=== PATIENT | male | born 1945 | race Caucasian/White ===

== ENCOUNTER → 2019-07-11 14:35 | Outpatient (CLI) | payer MEDICARE, SELFPAY ==
--- NOTE | ~2019-07-11 | XR_ITS ---
EXAMINATION: XR abdomen/kub 1V EXAM DATE: 07/11/2019 15:12 INDICATION: Bilateral kidney stones. TECHNIQUE: Frontal projection of the upper abdomen, frontal projection lower abdomen/pelvis for inter pretation. Comparison is made to prior examination from 05/27/2017. FINDINGS: There are cholecystectomy clips. Nonobstructive bowel gas pattern. There is colonic interp osition. Again there are multiple calcifications projecting over the pubic symphysis, probably bladde r stones. There is moderate lumbar levoscoliosis. IMPRESSION: Bladder stone. Reviewed, dictated and finalized at location A. IMPRESSION: Bladder stone.
== END ==
PROVIDERS: Visit Provider Urology
DX: N21.0 Calculus in bladder (principal)
CPT/HCPCS: 74018

== ENCOUNTER 2019-07-18 13:51 | Outpatient (CLI) | payer MEDICARE, SELFPAY ==
--- NOTE | ~2019-07-18 | CT_ITS ---
EXAMINATION: CT abdomen pelvis wo con DATE: 07/18/2019 14:33 INDICATION: Bladder stone and diverticulum TECHNIQUE: Computed tomography (CT) of the abdomen and pelvis was performed without intravenous contr ast. The dose-length product (DLP) was 1228.67 mGy-cm. Automated exposure control and iterative recon struction technique were employed. COMPARISON: 01/31/2015 FINDINGS: Minimal dependent atelectasis is present in the lung bases. The heart size is normal. The g allbladder is surgically absent. Punctate calcifications in an otherwise normal spleen likely represe nt healed granulomatous disease. There is nodularity of the liver surface. The pancreas and adrenal g lands are normal. Cysts of the kidneys measure up to 1.9 cm on the right. Nonobstructing stones of th e right kidney measure up to 4 mm. A nonobstructing left kidney stone measures 4 mm. There is a 10 mm hemorrhagic cyst of the left kidney. No pathologically enlarged abdominal or pelvic lymph nodes are identified. There is no free intraperitoneal gas or evidence of bowel obstruction. There are chronic venous collaterals in the mid and lower abdomen. There is a 3.1 cm stone in the urinary bladder. Also seen is a 1.1 cm stone which is adjacent to a prior diverticulum of the left bladder wall. Prostatic calcifications are again noted. There is severe lumbar spondylosis. IMPRESSION: 1. 3.1 cm bladder stone. 2. Bilateral nonobstructing nephrolithiasis. 3. Cirrhosis with portal hypertension. Reviewed, dictated and finalized at location A.
== END 2019-07-18 13:52 | disposition home or self-care (01) ==
LOC: ANHIMG 13:58
PROVIDERS: PCP Internal Medicine; Visit Provider Urology
DX: N21.0 Calculus in bladder (principal); N20.0 Calculus of kidney; K74.60 Unspecified cirrhosis of liver; K76.6 Portal hypertension
CPT/HCPCS: 74176

== ENCOUNTER 2019-07-27 00:51 | Day surgery (SDC) | payer MEDICARE, SELFPAY ==
[2019-07-26 13:34] VITALS: BMI 39.7
[2019-07-27] VITALS (12 sets, daily range): BP systolic 123–143; BP diastolic 70–99; PULSE 56–73; RESP 18–22; TEMP 36.1–36.7; O2SAT 90–97
[2019-07-27] MEDS: LACTATED RINGERS 1,000 ML 30 ML IV CONT ×2 (10:50→13:33)
--- NOTE | 2019-07-27 11:00 | P.PNAN_ITS ---
Anes - Initial Pre Proc Eval Procedure: Operation Date: 07/27/19 12:30 Proposed Procedures p Litholapaxy, Holmium Laser Lithotripsy Bladder Stone Extraction - Swapnil Guardado MD Date/Time: 07/27/19 11:00 Surgeon: Swapnil Guardado MD Pre Op Diagnosis: Bladder Stone Patient Data Age: 74 Gender: M Height: 5 ft 11 in Weight: 129.27 kg Allergies Allergy/AdvReac Type Severity Reaction Status Date / Time cephalexin Allergy Unknown Hives Verified 07/26/19 13:31 Home Medications Medication Instructions Recorded Confirmed Type albuterol sulfate 90 mcg/actuation 1 inhalation INHALATION Q4H PRN 04/12/19 07/26/19 History aerosol inhaler magnesium oxide 400 mg PO DAILY 04/12/19 07/26/19 History melatonin 10 mg tablet 10 mg PO HS 04/12/19 07/26/19 History trazodone 100 mg tablet 100 mg PO HS tablet 04/12/19 07/26/19 History furosemide 20 mg tablet 20 mg PO QAM 04/13/19 07/26/19 History potassium chloride 10 mEq 10 meq PO DAILY 04/13/19 07/26/19 History capsule,extended release rivastigmine 9.5 mg TRANSDERM DAILY 04/13/19 07/26/19 History gkptxbcerjd-vnnuyhbwz-dhzhycgj 1 inhalation INHALATION DAILY 07/26/19 07/26/19 History [Trelegy Ellipta] Patient hx anesthesia problems: none Family hx anesthesia problems: none PMFSH Family History Family History Father Asthma Social History Social History Smoking status: Never smoker Alcohol intake: never Anes - Eval Final PreProcedure Day of Procedure 07/27/19 11:00 Patient weight: morbidly obese Heart: tachycardia Lungs: decreased breath sounds Airway: Mallampati scale class II Neurological: other (alert) Last oral intake: >/= 8 hours ASA classification: IV Emergent: no Anesthetic plan: proceed Anesthesia type and monitoring: general LMA and standard monitoring Informed Consent: The patient's anesthetic plan and its attendant risks and benefits were discussed with the patient/family/POA. Questions were solicited an d answers provided to the satisfaction of the patient/family/POA.
--- NOTE | 2019-07-27 11:02 | WPDHPUPDATE1 ---
History and Physical Update Update Date/Time: 07/27/19 11:02 History and Physical has been reviewed, including an updated exam of the patient. There are NO changes in the patient's condition. Risks, benefits, and alternatives have been discussed and questions answered. Patient agrees to proceed with procedure.
[2019-07-27 11:19] LABS: INR 1.1; Prothrombin Time 13.8 Seconds (11.1-14.7)
[2019-07-27 11:20] LABS: Partial Thromboplastin Time 28.6 SECONDS (22.3-36.8)
[2019-07-27 11:22] LABS: Blood Urea Nitrogen 15 mg/dL (9-20); Calcium 8.3 mg/dL (8.4-10.2); Carbon Dioxide 31 mmol/L (22-30); Chloride 103 mmol/L (98-107); Estimated CRCL calculation 106 ml/min; Estimated Glomerular Filt Rate > 60; Glucose 114 mg/dL (75-110); Potassium 4.1 mmol/L (3.4-5.0); Sodium 137 mmol/L (137-145)
[2019-07-27] MEDS: levoFLOXacin 500 MG/D5W 100 ML 500 MG/100 ML BAG 100 MG IVPB (11:31)
--- NOTE | 2019-07-27 14:09 | PM.PROC ---
Procedure Note - Detailed Date of procedure: 07/27/19 Pre-op diagnosis: Bladder Stone Post-op diagnosis: same Procedure performed: 1. Cysto./laser lithotripsy, removal of large bladder stones Description of procedure: The patient is brought to the operative suite where he was prepped and draped in a routine sterile fashion while in the dorsal lithotomy position after the uneventful induction of a general anesthetic. A 21F rigid cystoscope was placed in his bladder. He has no urethral strictures And a prostate that is been previously resected without significant regrowth. He has a no median lobe enlargement with an estimated prostatic urethral length of approximately 1.5cm. He has 4 bladder calculi measuring approximately 3-6cm each . Using a 1000 micron holmium laser fiber laser these stones are fractured into smaller particles. The particles are evacuated through a 27 F resectoscope sheath using both the [employer] evacuator and by direct extraction with the loop electrode. There is some moderate hematuria determination that procedure and therefore I did place a 20F 3-way catheter. The patient was taken to the recovery room having tolerated the procedure well. Anesthesia: GLMA Surgeon: Swapnil Guardado MD Drains: Yes (20F Still catheter) Packing: No Pathology: yes Complications: No immediate complications Condition: stable Disposition: PACU
[2019-07-27] MEDS: ONDANSETRON INJ 4 MG/2 ML VIAL IV PUSH (15:59)
== END 2019-07-27 16:50 | disposition home or self-care (01) ==
PROVIDERS: Anesthesiology; PCP Internal Medicine; Visit Provider Urology
PROC: (CPT 52318; principal; 2019-07-27 12:30)
DX: N21.0 Calculus in bladder (principal); R31.9 Hematuria, unspecified; N41.1 Chronic prostatitis; E66.01 Morbid (severe) obesity due to excess calories; Z68.41 Body mass index [BMI] 40.0-44.9, adult
CPT/HCPCS: 52318; 36415; 80048; 82365; 85610; 85730; 88300; A9270; J1956; J2405; J2704; J3010; J7120

== ENCOUNTER 2024-09-18 03:12 | Inpatient (IN) | payer MEDICARE, SELFPAY ==
[2024-09-18] VITALS (62 sets, daily range): BP systolic 79–138; BP diastolic 42–89; PULSE 54–131; RESP 16–47; TEMP 34.8–38.5; O2SAT 90–100; BMI 38.3
--- NOTE | 2024-09-18 | ECHO_ITS ---
Patient Info Name: Wyatt Lyon Age: 79 years : 1945 Gender: Male Ht: 68 in Wt: 278 lbs BSA: 2.52 m2 HR: 59 bpm BP: 89 / 60 mmHg Heart Rhythm: Sinus Rhythm Technical Quality: Fair Exam Date: 09/18/2024 12:00 PM Patient Status: I Admit Date: 09/18/2024 Exam Type: CA echo dop color flow w con Complete two-dimensional, color flow and Doppler transthoracic echocardiogram is performed with contrast to opacify the left ventricle and to improve the deliniation of the left ventricle endocardial borders. Staff Referring Physician: Jamar Llanos MD [employer]: Leeann Whalen Attending Provider: Beba Orona Contrast/Agitated Saline Contrast/Ag. Saline: Definity Amount: 2.00 ml Administered By: Leeann Whalen Existing IV Access: Yes IV Access Condition: patent with no signs of infiltration Summary 1. Left ventricular chamber dimension is normal. 2. Left ventricular systolic function is normal, estimated at 60-65. 3. There is mildly increased left ventricular wall thickness. 4. The left ventricular diastolic function is grade I diastolic dysfunction. 5. Right ventricular systolic function is normal. 6. Right atrial chamber dimension is mildly enlarged. 7. No significant valvular disease. Left Ventricle Left ventricular chamber dimension is normal. Left ventricular systolic function is normal, estimated at 60-65. There is mildly increased left ventricular wall thickness. The left ventricular diastolic function is grade I diastolic dysfunction. Right Ventricle Right ventricular chamber dimension is normal. Right ventricular systolic function is normal. Left Atria Left atrial chamber dimension is normal. Right Atria Right atrial chamber dimension is mildly enlarged. Atrial Septum Intact interatrial septum visualized by color flow imaging. Aortic Valve The aortic valve is probable trileaflet. There is no aortic valve stenosis. There is no aortic valve regurgitation. Pulmonic Valve The pulmonic valve is not well visualized. There is no pulmonic regurgitation. Mitral Valve There is trace mitral valve regurgitation. Tricuspid Valve There is trace tricuspid valve regurgitation. Pericardium/Pleural The pericardium appears epicardial fat pad. There is no pericardial effusion. Aorta The aortic root size at the sinus of Valsalva is normal. Left Ventricular Outflow Tract Name Value Normal LVOT 2D LVOT Diameter 2.0 cm LVOT Doppler LVOT Peak Velocity 106 cm/s LVOT Peak Gradient 4 mmHg LVOT Mean Gradient 2 mmHg LVOT VTI 24 cm LVOT VTI/AV VTI Ratio 0.7 LVOT Stroke Volume 76 ml LVOT CO 4.3 l/min LVOT CI 1.7 l/min/m2 Pulmonic Valve Name Value Normal RVOT Doppler RVOT Peak Velocity 54 cm/s RVOT Peak Gradient 1 mmHg PV Doppler PV Peak Velocity 135 cm/s PV Peak Gradient 7 mmHg Mitral Valve Name Value Normal MV Diastolic Function MV E Peak Velocity 93 cm/s MV A Peak Velocity 76 cm/s MV E/A 1.2 MV Decel Time (PW) 194 ms MV Annular TDI MV E/e' (Septal) 10.4 MV E/e' (Lateral) 10.0 MV E/e' (Average) 10.2 Tricuspid Valve Name Value Normal TV Regurgitation Doppler TR Peak Velocity 222 cm/s TR Peak Gradient 20 mmHg Estimated PAP/RSVP RV Systolic Pressure 30 mmHg <36 TV Annular TDI TV Lateral Sarah s' Velocity 14.7 cm/s >=9.5 Aorta Name Value Normal Ascending Aorta Ao Root Diameter (MM) 3.5 cm Ao Root Diam Index (MM) 1.4 cm/m2 Aortic Valve Name Value Normal AV Doppler AV Peak Velocity 149 cm/s AV Peak Gradient 9 mmHg AV Mean Gradient 4 mmHg AV VTI 35 cm AV Area (Cont Eq VTI) 2.2 cm2 >=3.0 AV Area (Cont Eq Vicente) 2.3 cm2 AV DI (Vicente) 0.71 AV Regurgitation 2D LVOT Area 3.2 cm2 Ventricles Name Value Normal LV Dimensions 2D/MM IVS Diastolic Thickness (2D) 1.2 cm 0.6-1.0 LVID Diastole (2D) 5.6 cm 4.2-5.8 LVIW Diastolic Thickness (2D) 1.2 cm 0.6-1.0 LVID Systole (2D) 3.8 cm 2.5-4.0 LVOT Diameter 2.0 cm LV Mass (2D Cubed) 281.18 g 88.00-224.00 LV Mass Index (2D Cubed) 112 g/m2 49-115 Relative Wall Thickness (2D) 0.43 <=0.42 LV Fractional Shortening/Ejection Fraction 2D/MM LV Fractional Shortening (2D) 33 % 25-43 LV EF (2D Teichholz) 61 % LV Diastolic Volume (4C MOD) 139 ml LV EF (4C MOD) 66 % LV Diastolic Volume (2C MOD) 66 ml LV EF (2C MOD) 60 % LV Diastolic Volume (BP MOD) 107 ml 62-150 LV Diastolic Volume Index (BP MOD) 42 ml/m2 34-74 LV Systolic Volume (BP MOD) 38 ml 21-61 LV Systolic Volume Index (BP MOD) 15 ml/m2 11-31 LV EF (BP MOD) 65 % 52-72 LV Diastolic Length (4C) 10.5 cm LV Systolic Length (4C) 8.6 cm LV Stroke Volume (4C MOD) 92 ml Atria Name Value Normal LA Dimensions LA Dimension (MM) 6.9 cm 3.0-4.0 LA Volume (4C A-L) 85 ml LA Volume (BP A-L) 80 ml RA Dimensions RA Area (4C) 26.1 cm2 <=18.0 Report Signatures
--- NOTE | ~2024-09-18 | XR_ITS ---
Portable chest x-ray Comparison: 09/20/2024 Clinical History: Pulmonary congestion Findings: Bilateral pleural effusions and extensive bilateral airspace disease are similar to prior exam, most compatible with advanced pulmonary edema and CHF. Stable elevation left hemidiaphragm. Sta ble right-sided PICC line. Cardiomediastinal silhouette is stable. Bones and soft tissues are unrema rkable. Impression: Advanced CHF with bilateral pleural effusions and moderate to advanced pulmonary edema pattern. Corre late clinically for pneumonia. Stable right-sided PICC line. Reviewed, dictated and finalized at [facility]. Impression: Advanced CHF with bilateral pleural effusions and moderate to advanced pulmonar y edema pattern. Correlate clinically for pneumonia. Stable right-sided PICC line.
--- NOTE | ~2024-09-18 | XR_ITS ---
Portable chest x-ray Comparison: 03/28/2013 Clinical History: Altered mental status Findings: Moderate right pleural effusion present with right basilar airspace disease. There is elev ation of left hemidiaphragm. There multiple nodular opacities overlying the left upper lobe, which ar e possibly external to the lung. Cardiomediastinal silhouette is stable. Bones and soft tissues are unremarkable. Impression: Moderate right pleural effusion with right basilar atelectasis/edema versus possibly pneumonia. Numerous nodular opacities overlying the left upper lobe/left lung, which may be external to the lung itself. Consider chest CT to further evaluate. Stable elevation left hemidiaphragm. Reviewed, dictated and finalized at location . Impression: Moderate right pleural effusion with right basilar atelectasis/edema versus pos sibly pneumonia. Numerous nodular opacities overlying the left upper lobe/left lung, which may b e external to the lung itself. Consider chest CT to further evaluate. Stable elevation left hemidiaphragm.
--- NOTE | ~2024-09-18 | CT_ITS ---
Clinical Indication: Shortness of breath CT Scan of the Chest, Abdomen, and Pelvis with Contrast: Technique: Contiguous sections were acquired throughout the chest, abdomen, and pelvis after intraven ous administration of 100 cc of Omnipaque 350. Dose reduction technique was used on this scan by uti lizing automated exposure control and iterative reconstruction technique. The dose-length product (DL P) was 5379.50 mGy-cm. Findings: There is no evidence of any significant mediastinal, hilar or axillary lymphadenopathy. The mediastin al soft tissues appear normal. Evaluation for pulmonary embolism markedly limited due to timing of th e contrast bolus. No definite large central pulmonary embolus seen. No definite aortic aneurysm or di ssection. There is no evidence of pleural or pericardial effusion. Bibasilar consolidation is most compatible with bibasilar atelectatic change. Nodular contour of the liver is compatible cirrhosis. Suggestion of multifocal hypodense masses in th e liver, especially in the left hepatic lobe and caudate region. 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 C holecystectomy clips are present. The spleen, pancreas, adrenals and kidneys are within normal limits . No evidence of aortic aneurysm. Enlarged gastrohepatic lymph node measures 2.5 cm (axial image 72 of series 5).. There is suggestion of circumferential wall thickening at the ascending colon with relative distentio n of the cecum. There is probable soft tissue infiltration from the colonic wall thickening into the adjacent pericolonic fat (series 12 image 127 for example). Possible urinary bladder stone versus excreted contrast in the bladder. Still catheter in place. Pros richards gland is coarsely calcified. No ascites. Impression: Very limited evaluation for pulmonary embolus due to timing of the contrast bolus. No definite large central pulmonary embolus. Circumferential wall thickening of ascending colon with soft tissue infiltration into the adjacent pe ricolonic fat, highly suspicious for colonic adenocarcinoma. Consider colonoscopy for further assessm ent and tissue sampling. Cirrhotic liver. Multiple hypodense hepatic masses likely reflecting metastatic disease related to th e colonic adenocarcinoma, though multifocal hepatocellular carcinoma. Potential alternative considera tion. Enlarged gastrohepatic lymph node, suspicious for metastatic lymph node. Bibasilar pulmonary atelectasis. Reviewed, dictated and finalized at [facility]. Impression: Very limited evaluation for pulmonary embolus due to timing of the contrast rita us. No definite large central pulmonary embolus. Circumferential wall thickening of ascending colon with soft tissue infiltratio n into the adjacent pericolonic fat, highly suspicious for colonic adenocarcino ma. Consider colonoscopy for further assessment and tissue sampling. Cirrhotic liver. Multiple hypodense hepatic masses likely reflecting metastatic disease related to the colonic adenocarcinoma, though multifocal hepatocellula r carcinoma. Potential alternative consideration. Enlarged gastrohepatic lymph node, suspicious for metastatic lymph node. Bibasilar pulmonary atelectasis.
--- NOTE | ~2024-09-18 | NM_ITS ---
EXAMINATION: NM GI bleeding DATE: 09/18/2024 14:42 INDICATION: Colon mass. Anemia. TECHNIQUE: 24.9 mCi Tc 99m in vitro labeled red cells administered intravenously. Scintigraphic imag es of the abdomen were obtained through one hour. FINDINGS: No pattern of abnormal activity is seen in the abdomen or pelvis to suggest gastrointestina l hemorrhage. IMPRESSION: 1. No scintigraphic evidence for active gastrointestinal bleeding. Reviewed, dictated and finalized at location [facility].
--- NOTE | ~2024-09-18 | XR_ITS ---
Portable chest x-ray Comparison: 09/19/2024 Clinical History: Infiltrates Findings: Right-sided PICC line in place. Small to moderate right pleural effusion present. Probable small left pleural effusion. There is extensive pulmonary airspace disease, relatively sparing the r ight lung apex. Cardiomediastinal silhouette is stable. Bones and soft tissues are unremarkable. Impression: Sensitive bilateral pulmonary airspace disease with bilateral pleural effusions. Findings suggest adv anced CHF. Correlate clinically for pneumonia. Right-sided PICC line. Reviewed, dictated and finalized at location [facility]. Impression: Sensitive bilateral pulmonary airspace disease with bilateral pleural effusions . Findings suggest advanced CHF. Correlate clinically for pneumonia. Right-sided PICC line.
--- NOTE | ~2024-09-18 | CT_ITS ---
Non-contrast Head CT History: Altered mental status Technique: Axial non-contrast imaging of the brain was performed. Dose reduction technique was used on this scan by utilizing automated exposure control and iterative reconstruction technique. The dose -length product (DLP) was 756.67 mGy-cm. Findings: There is no evidence of intracranial hemorrhage, mass lesion, or acute infarct. Brain par enchyma appears normal. The ventricles and subarachnoid spaces are normal in size. The calvarium ap pears normal. The visualized paranasal sinuses and mastoid air cells are clear. IV contrast is on renzo candy from recent contrast-enhanced CT scan of the chest, abdomen, and pelvis. Impression: No significant abnormality seen. Reviewed, dictated and finalized at location . Impression: No significant abnormality seen.
--- NOTE | ~2024-09-18 | XR_ITS ---
Portable chest x-ray Comparison: 09/18/2024 Clinical History: Respiratory failure Findings: Probable small to moderate layering right pleural effusion with right basilar airspace con solidation. There is hazy left basilar and left perihilar airspace disease. Elevation left hemidiaphr agm. Cardiomediastinal silhouette is stable. Bones and soft tissues are unremarkable. Impression: Possible small to moderate layering right pleural effusion with right basilar atelectasis versus pneu monia. Hazy left basilar and left perihilar airspace disease could reflect pulmonary edema/atelectasis versu s pneumonia. Stable elevation left hemidiaphragm. Reviewed, dictated and finalized at location . Impression: Possible small to moderate layering right pleural effusion with right basilar a telectasis versus pneumonia. Hazy left basilar and left perihilar airspace disease could reflect pulmonary e kristyn/atelectasis versus pneumonia. Stable elevation left hemidiaphragm.
--- NOTE | 2024-09-18 03:21 | ECG_ITS ---
Test Date: 2024-09-18 03:31:13 Measurements Intervals [place] Rate: 132 P: 10 MT: 182 QRS: 43 QRSD: 96 T: 54 QT: 366 QTc: 544 Interpretive Statements SINUS TACHYCARDIA WITH ATRIAL AND VENTRICULAR PREMATURE COMPLEXES NONSPECIFIC ST & T-WAVE ABNORMALITY- DIFFUSE LEADS BASELINE ARTIFACT- I, II, III, AVR, AVL, AVF, V1, V3-V6 ABNORMAL ECG No previous ECG available for comparison Electronically Signed On 09-18-2024 07:09:49 CDT by Ty Elizondo D.O.
--- NOTE | 2024-09-18 03:34 | ED_ITS ---
HPI - General Adult General Chief complaint: Altered Mental Status Stated complaint: DIFFICULTY IN BREATHING Time Seen by Provider: 09/18/24 03:17 History of Present Illness HPI narrative: Patient is a 79-year-old gentleman presents emergency department with chief complaint of shortness of breath and elevated temperature. Patient has history of COPD and also uses 4 L of oxygen and BiPAP at night the patient had air conditioner malfunction and this evening was sleeping in a hot room patient became short of breath this evening and was altered mental status family reports the patient is full code Related Data Home Medications ?Medication ?Instructions ?Recorded ?Confirmed ?Last Taken ?Type albuterol sulfate 90 mcg/actuation 1 inhalation inhalation Q4H PRN 04/12/19 07/27/19 Unknown History aerosol inhaler Shortness Of Breath magnesium oxide 400 mg PO DAILY 04/12/19 07/27/19 Unknown History melatonin 10 mg tablet 10 mg PO HS 04/12/19 07/27/19 Unknown History trazodone 100 mg tablet 100 mg PO HS 04/12/19 07/27/19 Unknown History furosemide 20 mg tablet 20 mg PO QAM 04/13/19 07/27/19 Unknown History potassium chloride 10 mEq 10 meq PO DAILY 04/13/19 07/27/19 Unknown History capsule,extended release rivastigmine 9.5 mg/24 hour 9.5 mg transdermal DAILY 04/13/19 07/27/19 Unknown History transdermal patch fluticasone fur. 100 mcg-umeclid 1 inhalation inhalation DAILY 07/26/19 07/27/19 Unknown History 62.5 mcg-vilant 25 mcg inhalat.powder (Trelegy Ellipta) Allergies Allergy/AdvReac Type Severity Reaction Status Date / Time cephalexin Allergy Unknown Hives Verified 07/27/19 11:28 Review of Systems 2 Review of Systems: A 10 system review of systems was completed on the patient and is negative except for what is stated in the HPI. Nursing and ancillary documentation was reviewed. PMFSH Family History Family History Father Asthma Social History Social History Smoking status: Never smoker Alcohol intake: never Exam 2 Narrative: GENERAL: Ill-appearing, well-nourished, and in moderate acute distress. Hot to touch HEAD: Normocephalic, atraumatic. EYES: PERRLA and EOMI. ENT: Nares clear, no rhinorrhea or epistaxis. Mucous membranes moist. NECK: Supple. CHEST: Clear to auscultation. No respiratory distress. HEART: Regular rate and rhythm. No murmur heard. Normal peripheral pulses. ABDOMEN: Soft, nontender, nondistended, normal active bowel sounds. EXTREMITIES: Normal range of motion. No edema. SKIN: Warm, dry, no rash. NEURO: No focal deficits. Alert and slow to respond. PSYCH: Normal mood and affect. Course Vital Signs Vital signs: Vital Signs Temperature 38.5 C H 09/18/24 03:13 Pulse Rate 131 H 09/18/24 03:13 Respiratory Rate 47 H 09/18/24 03:13 Blood Pressure 129/59 L 09/18/24 03:13 Pulse Oximetry 97 09/18/24 03:13 Oxygen Delivery Room Air 09/18/24 03:13 Temperature 35.1 C L 09/18/24 06:53 Pulse Rate 85 09/18/24 06:53 Respiratory Rate 21 H 09/18/24 06:53 Blood Pressure 110/55 L 09/18/24 06:53 Pulse Oximetry 99 09/18/24 06:53 Oxygen Delivery BiPAP 09/18/24 06:18 Oxygen Flow Rate 15 09/18/24 03:37 Medical Decision Making Vital Signs Vital Signs: Vital Signs Temperature 38.5 C H 09/18/24 03:13 Pulse Rate 131 H 09/18/24 03:13 Respiratory Rate 47 H 09/18/24 03:13 Blood Pressure 129/59 L 09/18/24 03:13 Pulse Oximetry 97 09/18/24 03:13 Oxygen Delivery Room Air 09/18/24 03:13 Temperature 35.1 C L 09/18/24 06:53 Pulse Rate 85 09/18/24 06:53 Respiratory Rate 21 H 09/18/24 06:53 Blood Pressure 110/55 L 09/18/24 06:53 Pulse Oximetry 99 09/18/24 06:53 Oxygen Delivery BiPAP 09/18/24 06:18 Oxygen Flow Rate 15 09/18/24 03:37 Lab Data 09/18/24 05:23 09/18/24 03:42 Labs: Lab Results 09/18/24 09/18/24 09/18/24 Range/Units 03:42 03:53 05:23 WBC 7.4 (4.5-10.0) K/mm3 RBC 3.11 L (4.6-6.20) M/mm3 Hgb 6.6 L* 6.2 L* (14.0-18.0) g/dL Hct 23.4 L 22.5 L (42.0-52.0) % MCV 75.2 L (80-100) fl MCH 21.2 L (26-34) pg MCHC 28.2 L (32-36) g/dl RDW 21.2 H (11.5-14.5) % Plt Count 69 L (150-375) k/mm3 MPV TNP Immature Gran % (Auto) 2.0 H (0-0.5) % Neut % (Auto) 74.2 H (45.5-73.1) % Lymph % (Auto) 10.5 L (18.3-44.2) % [place] % (Auto) 10.7 H (2.6-8.5) % Eos % (Auto) 1.8 (0-4.4) % Baso % (Auto) 0.8 (0.2-1.2) % Lymph # (Auto) 0.78 L (0.9-3.2) K/mm3 [place] # (Auto) 0.8 H (0.1-0.6) K/mm3 Eos # (Auto) 0.1 (0-0.3) K/mm3 Baso # (Auto) 0.1 (0.0-0.1) K/mm3 Abs Immat Gran (auto) 0.15 H (0.00-0.031) K/mm3 Absolute Neuts (auto) 5.5 (1.3-6.7) K/mm3 Absolute Nucleated RBC 0.000 (0.0-0.012) K/mm3 Band Neutrophils % Not Reportable Nucleated RBC % 0.0 (0.0-0.2) % Smudge Cells Present Platelet Estimate Decreased (Adequate) Large Platelets Present % Immature Plt Fraction 9.5 (0.9-11.2) % Hypochromasia 2+ Poikilocytosis 2+ Anisocytosis 2+ Microcytosis 2+ (NORMAL) Ovalocytes 1+ Stomatocytes 1+ Schistocytes None seen PT Pending INR Pending APTT Pending Sodium 138 (137-145) mmol/L Potassium 3.1 L (3.4-5.0) mmol/L Chloride 101 (98-107) mmol/L Carbon Dioxide 29 (22-30) mmol/L Anion Gap 8 (4-12) mmol/L BUN 21 H (9-20) mg/dL Creatinine 1.33 H (0.7-1.3) mg/dL Estim Creat Clear Calc Not Reportable Estimated GFR 52 L (59 - ) Glucose 172 H (65-110) mg/dL Lactic Acid 3.5 H (0.7-2.0) mmol/L Calcium 8.3 L (8.4-10.2) mg/dL Magnesium 1.7 (1.6-2.3) mg/dL Total Bilirubin 1.2 (0.2-1.3) mg/dL AST 64 H (17-59) U/L ALT 26 (6-50) U/L Alkaline Phosphatase 156 H (38-126) U/L Total Creatine Kinase 88 (55-170) U/L Troponin I 0.068 H* (0.000-0.034) ng/mL NT-Pro-B Natriuret Pep 131 H (19.9-100) pg/mL Total Protein 6.5 (6.3-8.2) g/dL Albumin 3.1 L (3.5-5.1) g/dL Lipase 136 (23-300) U/L Procalcitonin 0.4 ng/mL Urine Color Yellow (Yellow) Urine Appearance Clear (Clear) Urine pH 6.5 (5.0-9.0) Ur Specific [place] 1.012 (1.001-1.035) Urine Protein Trace (Negative) mg/dL Urine Glucose (UA) Negative (Negative) mg/dL Urine Ketones Negative (Negative) mg/dL Ur Blood (Man) Negative (Negative) Urine Nitrate Negative (Negative) Urine Bilirubin Negative (Negative) Urine Urobilinogen 1.0 (<2.0) mg/dL Leukocyte Esterase Rfl 3+ H (Negative) RENATA/UL Urine RBC 3-5 H (0-2) /hpf Urine WBC 11-20 H (0-3) /hpf Ur Squamous Epith Cells Occasional (Few) /hpf Urine Bacteria None seen /hpf Urine Casts 3-5 Influenza A (RT-PCR) Negative (Negative) Influenza B (RT-PCR) Negative (Negative) RSV (RT-PCR) Negative (Negative) SARS-CoV-2 RNA (RT-PCR) Negative (Negative) Blood Type A Negative Antibody Screen Negative Crossmatch See Detail 09/18/24 Range/Units 06:24 WBC (4.5-10.0) K/mm3 RBC (4.6-6.20) M/mm3 Hgb (14.0-18.0) g/dL Hct (42.0-52.0) % MCV (80-100) fl MCH (26-34) pg MCHC (32-36) g/dl RDW (11.5-14.5) % Plt Count (150-375) k/mm3 MPV Immature Gran % (Auto) (0-0.5) % Neut % (Auto) (45.5-73.1) % Lymph % (Auto) (18.3-44.2) % [place] % (Auto) (2.6-8.5) % Eos % (Auto) (0-4.4) % Baso % (Auto) (0.2-1.2) % Lymph # (Auto) (0.9-3.2) K/mm3 [place] # (Auto) (0.1-0.6) K/mm3 Eos # (Auto) (0-0.3) K/mm3 Baso # (Auto) (0.0-0.1) K/mm3 Abs Immat Gran (auto) (0.00-0.031) K/mm3 Absolute Neuts (auto) (1.3-6.7) K/mm3 Absolute Nucleated RBC (0.0-0.012) K/mm3 Band Neutrophils % Nucleated RBC % (0.0-0.2) % Smudge Cells Platelet Estimate (Adequate) Large Platelets % Immature Plt Fraction (0.9-11.2) % Hypochromasia Poikilocytosis Anisocytosis Microcytosis (NORMAL) Ovalocytes Stomatocytes Schistocytes PT INR APTT Sodium (137-145) mmol/L Potassium (3.4-5.0) mmol/L Chloride (98-107) mmol/L Carbon Dioxide (22-30) mmol/L Anion Gap (4-12) mmol/L BUN (9-20) mg/dL Creatinine (0.7-1.3) mg/dL Estim Creat Clear Calc Estimated GFR (59 - ) Glucose (65-110) mg/dL Lactic Acid 1.7 (0.7-2.0) mmol/L Calcium (8.4-10.2) mg/dL Magnesium (1.6-2.3) mg/dL Total Bilirubin (0.2-1.3) mg/dL AST (17-59) U/L ALT (6-50) U/L Alkaline Phosphatase (38-126) U/L Total Creatine Kinase (55-170) U/L Troponin I 0.537 H* D (0.000-0.034) ng/mL NT-Pro-B Natriuret Pep (19.9-100) pg/mL Total Protein (6.3-8.2) g/dL Albumin (3.5-5.1) g/dL Lipase (23-300) U/L Procalcitonin ng/mL Urine Color (Yellow) Urine Appearance (Clear) Urine pH (5.0-9.0) Ur Specific [place] (1.001-1.035) Urine Protein (Negative) mg/dL Urine Glucose (UA) (Negative) mg/dL Urine Ketones (Negative) mg/dL Ur Blood (Man) (Negative) Urine Nitrate (Negative) Urine Bilirubin (Negative) Urine Urobilinogen (<2.0) mg/dL Leukocyte Esterase Rfl (Negative) RENATA/UL Urine RBC (0-2) /hpf Urine WBC (0-3) /hpf Ur Squamous Epith Cells (Few) /hpf Urine Bacteria /hpf Urine Casts Influenza A (RT-PCR) (Negative) Influenza B (RT-PCR) (Negative) RSV (RT-PCR) (Negative) SARS-CoV-2 RNA (RT-PCR) (Negative) Blood Type Antibody Screen Crossmatch ABG Data ABG results: 09/18/24 03:24 Puncture Site Right radial ABG pH 7.302 L ABG pCO2 56.1 H ABG pO2 142.4 H ABG PO2/FiO2 Ratio 1.42 ABG HCO3 27.1 H ABG O2 Saturation 98.5 ABG O2 Content 13.7 L ABG Base Excess 0.2 A-a Gradient 514.5 Oxyhemoglobin 97.2 Total Hemoglobin 9.8 L O2 Delivery Device Non-rebreather mask O2 Liters/Min 15.0 FiO2 100 Critical Care Time Critical Care Time Critical Care Time: Yes Total Critical Care Time: 35 Discharge Plan Discharge Clinical Impression: SOB (shortness of breath), Sepsis, Acute hypoxic respiratory failure, Anemia Patient Disposition: Still a Patient Condition: Stable Patient Language: Turkmen Prescriptions: No Action albuterol sulfate 90 mcg/actuation HFA aerosol inhaler 1 inhalation INHALATION Q4H PRN (Reason: Shortness Of Breath) magnesium oxide 400 mg magnesium tablet 400 mg PO DAILY melatonin 10 mg tablet 10 mg PO HS trazodone 100 mg tablet 100 mg PO HS rivastigmine 9.5 mg/24 hr patch 24 hour 9.5 mg TRANSDERM DAILY furosemide 20 mg tablet 20 mg PO QAM potassium chloride 10 mEq capsule, extended release 10 meq PO DAILY Trelegy Ellipta 100-62.5-25 mcg blister with device 1 inhalation INHALATION DAILY hydrocodone-acetaminophen 5-325 mg tablet 1 - 2 tablet PO Q6H PRN (Reason: pain) Qty: 20 0RF sulfamethoxazole-trimethoprim 800-160 mg tablet 1 tablet PO Q12H Qty: 10 0RF Follow-up/Referrals: PHYSICIAN,UTILITIES ESTIMATOR AND DRAFTER [Primary Care Provider] -
[2024-09-18] MEDS: SODIUM CHLORIDE 0.9% IV 1,000 ML 999 ML IV CONT ×3 (03:35→06:55)
[2024-09-18 03:36] LABS: Alveolar/Arterial O2 Gradient 514.5 mmHg; Base Excess ABG 0.2 mEq/l (+/-2.0); Fractional Inspired Oxygen 100 %; HCO3 ABG 27.1 mEq/l (22.0-26.0); Oxygen Content ABG 13.7 %vol (16.0-22.0); Oxygen Saturation ABG 98.5 % (95.0-100.0); Oxyhemoglobin 97.2 % THb (90.0-100.0); PCO2 ABG 56.1 mmHg (35.0-45.0); PO2 ABG 142.4 mmHg (80.0-100.0); PO2 FiO2 Ratio Arterial Blood 1.42 %; Total Hemoglobin 9.8 g/dL (12.0-18.0); pH ABG 7.302 (7.350-7.450)
[2024-09-18] MEDS: ACETAMINOPHEN 650 MG SUPPOSITORY RECTAL (03:37)
[2024-09-18 03:38] LABS: Device NON-REBREATHER MASK; Modified Allen's Test Pass; Site Drawn RIGHT RADIAL
[2024-09-18 03:58] LABS: Basophils Absolute Auto 0.1 K/mm3 (0.0-0.1); Basophils Percent Auto 0.8 % (0.2-1.2); Eosinophils Absolute Auto 0.1 K/mm3 (0-0.3); Eosinophils Percent Auto 1.8 % (0-4.4); Hematocrit 23.4 % (42.0-52.0); Immature Granulocyte Absolute 0.15 K/mm3 (0.00-0.031); Immature Platelet Fraction Pct 9.5 % (0.9-11.2); Lymphocytes Absolute Auto 0.78 K/mm3 (0.9-3.2); Lymphocytes Percent Auto 10.5 % (18.3-44.2); Mean Corpuscular HGB Conc 28.2 g/dl (32-36); Mean Corpuscular Hemoglobin 21.2 pg (26-34); Mean Corpuscular Volume 75.2 fl (80-100); Monocytes Absolute Auto 0.8 K/mm3 (0.1-0.6); Monocytes Percent Auto 10.7 % (2.6-8.5); Neutrophils Absolute Auto 5.5 K/mm3 (1.3-6.7); Neutrophils Percent Auto 74.2 % (45.5-73.1); Platelet Count Result 69 k/mm3 (150-375); Red Blood Count 3.11 M/mm3 (4.6-6.20); Red Cell Distribution Width 21.2 % (11.5-14.5); White Blood Count 7.4 K/mm3 (4.5-10.0)
[2024-09-18 04:03] LABS: Add Urine Microscopic? YES; Appearance Urine Clear (Clear); Bacteria Urine None Seen /hpf; Bilirubin Urine Negative (Negative); Blood Urine Negative (Negative); Color Urine Yellow (Yellow); Glucose Urine UA Negative (Negative); Ketones Urine Negative (Negative); Leukocyte Esterase Ur 3+ LEU/UL (Negative); Nitrate Urine Negative (Negative); Protein Urine Trace mg/dL (Negative); Specific Grav Ur 1.012 (1.001-1.035); Squamous Epithelial Cell Urine Occasional /hpf (Few); pH Urine 6.5 (5.0-9.0)
[2024-09-18 04:07] LABS: Hemoglobin 6.6 g/dL (14.0-18.0)
[2024-09-18 04:09] LABS: Alanine Aminotransferase 26 U/L (6-50); Albumin Level 3.1 g/dL (3.5-5.1); Alkaline Phosphatase 156 U/L (38-126); Anion Gap 8 mmol/L (4-12); Aspartate Amino Transferase 64 U/L (17-59); Bilirubin,Total 1.2 mg/dL (0.2-1.3); Blood Urea Nitrogen 21 mg/dL (9-20); Calcium 8.3 mg/dL (8.4-10.2); Carbon Dioxide 29 mmol/L (22-30); Chloride 101 mmol/L (98-107); Estimated Glomerular Filt Rate 52; Glucose 172 mg/dL (65-110); Lactic Acid Reflex 3.5 mmol/L (0.7-2.0); Lipase 136 U/L (23-300); Magnesium 1.7 mg/dL (1.6-2.3); Potassium 3.1 mmol/L (3.4-5.0); Sodium 138 mmol/L (137-145); Total Protein 6.5 g/dL (6.3-8.2)
[2024-09-18 04:20] LABS: Creatine Kinase 88 U/L (55-170); Hypochromasia 2+; Platelet Estimate Decreased (Adequate); Smudge Cells PRESENT
[2024-09-18 04:22] LABS: Anisocytosis 2+; Large Platelets Present; Microcytosis 2+ (NORMAL); Poikilocytosis 2+
[2024-09-18 04:23] LABS: Ovalocytes 1+; Schistocytes None Seen; Stomatocytes 1+
[2024-09-18 04:25] LABS: NT Pro B Type Natriuretic Pept 131 pg/mL (19.9-100); Troponin I 0.068 ng/mL (0.000-0.034)
[2024-09-18 04:26] LABS: Procalcitonin 0.4 ng/mL
[2024-09-18 04:35] LABS: Influenza A QL RT-PCR Negative (Negative); Influenza B QL RT-PCR Negative (Negative); RSV RNA, RT-PCR Negative (Negative); SARS-CoV-2 RNA PCR Negative (Negative)
[2024-09-18 05:31] LABS: Hematocrit 22.5 % (42.0-52.0)
[2024-09-18 05:34] LABS: Hemoglobin 6.2 g/dL (14.0-18.0)
[2024-09-18 05:53] LABS: Reflex Lactic Acid Yes or No Add Lactic
--- NOTE | 2024-09-18 06:42 | ECG_ITS ---
Test Date: 2024-09-18 06:18:34 Measurements Intervals [place] Rate: 86 P: 29 MT: 202 QRS: 35 QRSD: 90 T: 49 QT: 403 QTc: 483 Interpretive Statements SINUS RHYTHM BORDERLINE AV CONDUCTION DELAY EARLY PRECORDIAL R/S TRANSITION BORDERLINE ST-T WAVE ABNORMALITY- HIGH LATERAL LEADS BASELINE WANDER- I, II, III, AVR, AVF, V1 BORDERLINE ECG Compared to ECG 09/18/2024 03:31:13 HEART RATE HAS DECREASED Electronically Signed On 09-18-2024 07:12:40 CDT by Ty Elizondo D.O.
[2024-09-18 06:45] LABS: Lactic Acid 1.7 mmol/L (0.7-2.0)
[2024-09-18] MEDS: SODIUM CHLORIDE 0.9% IV 250 ML 30 ML IV CONT ×2 (06:55→07:35)
[2024-09-18] MEDS: PIPERACILLN/TAZ 3.375GM/NS50ML 3.375 GM/50 ML BAG IVPB ×4 (06:55→22:58)
[2024-09-18] MEDS: TUBING, BLOOD SET 1 EACH XX ×2 (06:56→07:44)
[2024-09-18 07:00] LABS: Troponin I 0.537 ng/mL (0.000-0.034)
[2024-09-18] MEDS: Please enter patient height and weight for medication dosing 1 EACH XX (07:13)
--- NOTE | 2024-09-18 07:15 | PC.NURSE ---
Pt brito placed prior to this RN assuming care of pt
[2024-09-18 07:20] LABS: INR 1.4; Prothrombin Time 17.2 Seconds (11.1-14.7)
[2024-09-18 07:21] LABS: Partial Thromboplastin Time 31.8 Seconds (22.3-36.8)
[2024-09-18 07:28] LABS: Alveolar/Arterial O2 Gradient 95.2 mmHg; Base Excess ABG 2.8 mEq/l (+/-2.0); HCO3 ABG 30.2 mEq/l (22.0-26.0); Oxygen Content ABG 10.4 %vol (16.0-22.0); Oxygen Saturation ABG 97.5 % (95.0-100.0); Oxyhemoglobin 95.5 % THb (90.0-100.0); PO2 ABG 114.7 mmHg (80.0-100.0); PO2 FiO2 Ratio Arterial Blood 2.87 %
[2024-09-18 07:45] LABS: PCO2 ABG 65.5 mmHg (35.0-45.0); pH ABG 7.281 (7.350-7.450)
[2024-09-18 07:46] LABS: Device BIPAP; Expiratory Pressure 6 cmH2O; Fractional Inspired Oxygen 50 %; Inspiratory Pressure 12 cmH2O; Modified Allen's Test Pass; Site Drawn RIGHT RADIAL; Total Hemoglobin 7.6 g/dL (12.0-18.0)
[2024-09-18] MEDS: KCL 20 MEQ/SW 100 ML 100 ML 50 MEQ IVPB (08:08)
[2024-09-18] MEDS: VANCOMYCIN 1,250 MG/NS 250 ML 1,250 MG/250 ML BAG 166.67 MG IVPB ×2 (08:11→10:05)
[2024-09-18 08:23] LABS: MRSA (PCR) NOT DETECTED (NOT DETECTE)
--- NOTE | 2024-09-18 08:28 | P.CONGI_ITS ---
Assessment and Plan Assessment and plan (1) Colonic mass: Code(s): K63.89 - Other specified diseases of intestine Status: Acute (2) Cirrhosis: Qualifiers: Hepatic cirrhosis type: unspecified hepatic cirrhosis Ascites presence: without ascites Qualified Code(s): K74.60 - Unspecified cirrhosis of liver Code(s): K74.60 - Unspecified cirrhosis of liver Status: Acute (3) Portal hypertension: Code(s): K76.6 - Portal hypertension Status: Acute (4) Elevated LFTs: Code(s): R79.89 - Other specified abnormal findings of blood chemistry Status: Acute (5) Varices, gastric: Code(s): I86.4 - Gastric varices Status: Acute (6) Thrombocytopenia: Code(s): D69.6 - Thrombocytopenia, unspecified Status: Acute (7) Microcytic anemia: Code(s): D50.9 - Iron deficiency anemia, unspecified Status: Acute (8) Hypothermia: Qualifiers: Encounter type: initial encounter Qualified Code(s): T68.XXXA - Hypothermia, initial encounter Code(s): T68.XXXA - Hypothermia, initial encounter Status: Acute (9) Decreased appetite: Code(s): R63.0 - Anorexia Status: Acute Plan 1. Colon mass: Last colonoscopy done around 8-9 years ago at [facility] and per was normal. CTA showed circumferential wall thickening of ascending colon with soft tissue infiltration into the adjacent pericolonic fat, highly suspicious for colonic adenocarcinoma. Patient is having regular formed and non urgent BM's daily * CEA and CA-125 ordered * Colonoscopy once stable 2. Cirrhosis/portal hypertension/liver lesions/gastrosplenic varices/thrombocytopenia/elevated LFT's/decreased appetite: Likely secondary to NAFLD and patient is a non drinker and denies prior Hx of liver disease before 2019. Compensated. MELD 3.0 @ 14. Cirrhosis and portal hypertension initially noted on CT in June 2019. CTA showed cirrhotic liver. 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 Enlarged gastrohepatic lymph node, suspicious for metastatic lymph node. Cholecystectomy clips are present. CT in June 2019 showed cirrhosis with portal hypertension. Per he has never been seen for his cirrhosis and was unaware of cirrhosis findings in 2020. Labs today showed total bilirubin 1.2, AST 64, ALT 26, alkaline phosphatase 156, albumin 3.1, INR 1.4 and platelets 69. Thrombocytopenia secondary to cirrhosis or combination of multiple factors. * Variceal screening: No Hx of esophageal varices but gastrosplenic varices noted. Patient has never had an EGD. Beta kristian: Patient is not on a beta kristian. Consider starting Coreg as outpatient once stable. * Patient has never required a paracentesis * Patient was on Lasix 20 mg FREIGHT WEIGHER for non GI reasons * Diet: 2 gram sodium diet. Fluid restriction: * No Hx of HE * Last liver imaging 09/18/2024 showed cirrhosis and multiple hepatic masses, gastrosplenic varices, enlarged gastrohepatic lymph nodes * EGD once stable * AFP ordered 3. Microcytic anemia: Etiology likely multifactorial including possible cancer. Labs showing WBC's 7, Hgb 6.2, Hct 23, MCV 75, platelets 69, INR 1.4. No signs of active GI bleeding to include hematemesis, hematochezia or melena. * iron panel and ferritin ordered * once more stable patient will need an EGD and colonoscopy to evaluate for GI source of blood loss and also screen for esophageal varices 4. Sepsis/respiratory failure/hypothermia: Temp today at 95.1.WBC's 7. Currently on antibiotics. On Bipap. Prior to admission was on 4 liter O2. * Primary care team to continue monitoring and treating sepsis Thank you very much for allowing me to share in the care of this very nice patient. This report may have been done utilizing a voice recognition system. Attempts have been made to correct errors. However, there may be uncorrected grammatical, spelling, and recognition errors present. GI Consult Note Consult date/time: 09/18/24 08:28 Reason for consult: Colonic mass and anemia HPI: Wyatt Lyon is a 79 year old male with PMSH kidney stones, recurrent bladder stones, CCX, cirrhosis, overactive bladder, COPD with 4 L O2 and ALBERT with BiPAP at night. Patient presented to the emergency room today with complaint is shortness of breath, fever, and altered mental status. Patient was admitted for sepsis, respiratory failure, and anemia. GI has been consulted for colonic mass anemia. Patient was seen with Alice and family members at bedside. Most subjective information was obtained from the patient's Alice as the patient was on BiPAP. Prior to admission the patient was having intermittent right upper quadrant pain that was described as sharp. He was having a decreased appetite but no complaints of early satiety or unexplained weight loss. Denies nausea, vomiting, bloating, odynophagia, dysphagia, reflux, regurgitation. He was having daily bowel movements that were formed and not urgent prior to admission. Denies diarrhea, constipation, hematochezia, or melena. Denies NSAID, aspirin, or anticoagulant use. He is a nondrinker nonsmoker and denies marijuana use. Family history negative for CRC or IBD. ENDOSCOPY HISTORY: EGD: Patient has never had an EGD COLONOSCOPY: Per last colonoscopy performed at [facility] <10 years ago was normal LABS AND STOOL STUDIES: Labs 09/18/2024: Sodium 138, potassium 3.1, BUN 21, creatinine 1.33, GFR 52, calcium 8.3 WBC 7, Hgb 6.2, Hct 23, MCV 75, platelets 69, INR 1.4 Total bilirubin 1.2, AST 64, ALT 26, Alkaline Phos 156, albumin 3.1 Lipase 136, troponins positive x2, BNP 131, lactic acid 1.7, magnesium 1.7 Influenza a and B negative, COVID negative, and RSV negative ABG pH7.281 [id number] O2 114.7 IMAGING: CTA chest/abd/pelvis w/contrast 09/18/2024: Findings: There is no evidence of any significant mediastinal, hilar or axillary lymphadenopathy. The mediastinal soft tissues appear normal. Evaluation for pulmonary embolism markedly limited due to timing of the contrast bolus. No definite large central pulmonary embolus seen. No definite aortic aneurysm or dissection. There is no evidence of pleural or pericardial effusion. Bibasilar consolidation is most compatible with bibasilar atelectatic change. Nodular contour of the liver is compatible cirrhosis. Suggestion of multifocal hypodense masses in the liver, especially in the left hepatic lobe and caudate region. 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 Cholecystectomy clips are present. The spleen, pancreas, adrenals and kidneys are within normal limits. No evidence of aortic aneurysm. Enlarged gastrohepatic lymph node measures 2.5 cm (axial image 72 of series 5).. There is suggestion of circumferential wall thickening at the ascending colon with relative distention of the cecum. There is probable soft tissue infiltration from the colonic wall thickening into the adjacent pericolonic fat (series 12 image 127 for example). Possible urinary bladder stone versus excreted contrast in the bladder. Still catheter in place. Prostate gland is coarsely calcified. No ascites. Impression: Very limited evaluation for pulmonary embolus due to timing of the contrast bolus. No definite large central pulmonary embolus. Circumferential wall thickening of ascending colon with soft tissue infiltration into the adjacent pericolonic fat, highly suspicious for colonic adenocarcinoma. Consider colonoscopy for further assessment and tissue sampling. Cirrhotic liver. 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 Potential alternative consideration. Enlarged gastrohepatic lymph node, suspicious for metastatic lymph node. Bibasilar pulmonary atelectasis. Chest Xray 09/18/2024: Impression: Moderate right pleural effusion with right basilar atelectasis/edema versus possibly pneumonia. Numerous nodular opacities overlying the left upper lobe/left lung, which may be external to the lung itself. Consider chest CT to further evaluate. Stable elevation left hemidiaphragm. CT abd/pelvis w/o contrast 07/18/2019: IMPRESSION: 1. 3.1 cm bladder stone. 2. Bilateral nonobstructing nephrolithiasis. 3. Cirrhosis with portal hypertension. Review of Systems 2 Review of Systems: ROS unobtainable: Yes unobtainable due to medical condition (most information obtained from Alice) Constitutional: Constitutional: Reports as per HPI, Reports fatigue and Reports lethargy ENT: Reports as per HPI Cardiovascular: Cardiovascular: Reports as per HPI, Denies chest pain and Reports dyspnea Respiratory: Respiratory: Reports cough, Reports dyspnea and Reports dyspnea on exertion Gastrointestinal: Gastrointestinal: Reports as per HPI Musculoskeletal: Musculoskeletal: Reports as per HPI Integumentary/Breasts: Skin/Breast: Reports as per HPI Psychiatric: Psychiatric: Reports as per HPI Endocrine: Endocrine: Reports no additional endocrine complaints Hematologic/Lymphatic: Hematologic/Lymphatic: Reports no additional hematologic/lymphatic complaints [facility] Past Medical History Medical History (Updated 09/18/24 @ 10:02 by Stefanie Marie APRN) Dementia Chronic respiratory failure GBS (Guillain [place] syndrome) Leg edema, right Bladder stone Surgical History Surgical History (Updated 09/18/24 @ 09:02 by Parveen Diamond MD) H/O lithotripsy Family History Family History Father Asthma Social History Social History Smoking status: Never smoker Alcohol intake: never Substance use: never Substance use type: does not use Do You Feel Safe in your Home?: Yes Lack of Transportation: No Lack of Food: Never True Current Housing: I Have Housing Concerned About Future Housing: No Difficulty Paying Gas/Electric Bills: No Difficulty Paying for Meds: No Currently Unemployed: No Education: Associate Degree Difficulty w/ Childcare or Family Care: No Spiritual care concerns: No Meds Home Medications and Allergies Home Medications ?Medication ?Instructions ?Recorded ?Confirmed ?Type albuterol sulfate 90 mcg/actuation 1 inhalation inhalation Q4H PRN 04/12/19 07/27/19 History aerosol inhaler Shortness Of Breath magnesium oxide 400 mg PO DAILY 04/12/19 07/27/19 History melatonin 10 mg tablet 10 mg PO HS 04/12/19 07/27/19 History trazodone 100 mg tablet 100 mg PO HS 04/12/19 07/27/19 History furosemide 20 mg tablet 20 mg PO QAM 04/13/19 07/27/19 History potassium chloride 10 mEq 10 meq PO DAILY 04/13/19 07/27/19 History capsule,extended release rivastigmine 9.5 mg/24 hour 9.5 mg transdermal DAILY 04/13/19 07/27/19 History transdermal patch fluticasone fur. 100 mcg-umeclid 1 inhalation inhalation DAILY 07/26/19 07/27/19 History 62.5 mcg-vilant 25 mcg inhalat.powder (Trelegy Ellipta) hydrocodone 5 mg-acetaminophen 325 1 - 2 tablet PO Q6H PRN pain #20 07/27/19 Rx mg tablet tabs sulfamethoxazole 800 1 tablet PO Q12H #10 tabs 07/27/19 Rx mg-trimethoprim 160 mg tablet Allergies Allergy/AdvReac Type Severity Reaction Status Date / Time cephalexin Allergy Unknown Hives Verified 07/27/19 11:28 Vital Signs Vital Signs - 24 hr 09/18/24 03:13 09/18/24 03:25 09/18/24 03:25 Temperature 101.3 F H Pulse Rate 131 H 131 H Respiratory Rate 47 H 47 H Blood Pressure 129/59 L Pulse Oximetry 97 96 Oxygen Delivery Room Air Oxygen Flow Rate Fraction of Inspired Oxygen 09/18/24 03:30 09/18/24 03:37 09/18/24 04:03 Temperature Pulse Rate 124 H Respiratory Rate 38 H Blood Pressure Pulse Oximetry 96 96 97 Oxygen Delivery BiPAP Non-Rebreather Mask BiPAP Oxygen Flow Rate 15 Fraction of Inspired Oxygen 09/18/24 04:11 09/18/24 04:22 09/18/24 04:32 Temperature 101.3 F H 100.7 F H 100.2 F H Pulse Rate 115 H 110 H 105 H Respiratory Rate 31 H 32 H 26 H Blood Pressure 118/52 L 138/60 104/56 L Pulse Oximetry 94 96 97 Oxygen Delivery Oxygen Flow Rate Fraction of Inspired Oxygen 09/18/24 04:39 09/18/24 04:42 09/18/24 04:52 Temperature 100.2 F H 99.2 F 98.8 F Pulse Rate 102 H 96 Respiratory Rate 29 H 29 H Blood Pressure 120/55 L 101/52 L Pulse Oximetry 95 94 Oxygen Delivery Oxygen Flow Rate Fraction of Inspired Oxygen 09/18/24 05:00 09/18/24 05:01 09/18/24 05:12 Temperature 98.2 F 97.8 F Pulse Rate 115 H 94 90 Respiratory Rate 34 H 26 H 25 H Blood Pressure 117/60 118/64 Pulse Oximetry 96 93 95 Oxygen Delivery BiPAP Oxygen Flow Rate Fraction of Inspired Oxygen 09/18/24 05:22 09/18/24 06:08 09/18/24 06:11 Temperature 97.3 F L 95.8 F L 95.8 F L Pulse Rate 92 89 85 Respiratory Rate 20 17 19 Blood Pressure 117/66 117/67 113/75 Pulse Oximetry 94 98 Oxygen Delivery Oxygen Flow Rate Fraction of Inspired Oxygen 09/18/24 06:18 09/18/24 06:22 09/18/24 06:32 Temperature 95.6 F L 95.5 F L Pulse Rate 100 87 80 Respiratory Rate 30 H 23 H 21 H Blood Pressure 119/89 107/63 Pulse Oximetry 93 97 97 Oxygen Delivery BiPAP Oxygen Flow Rate Fraction of Inspired Oxygen 09/18/24 06:42 09/18/24 06:52 09/18/24 06:53 Temperature 95.4 F L 95.2 F L 95.2 F L Pulse Rate 82 84 85 Respiratory Rate 36 H 28 H 21 H Blood Pressure 108/65 110/55 L 110/55 L Pulse Oximetry 97 98 99 Oxygen Delivery Oxygen Flow Rate Fraction of Inspired Oxygen 09/18/24 07:08 09/18/24 07:10 09/18/24 07:40 Temperature 95 F L 94.7 F L Pulse Rate 83 82 82 Respiratory Rate 20 20 19 Blood Pressure 104/63 104/63 115/72 Pulse Oximetry 100 99 99 Oxygen Delivery Oxygen Flow Rate Fraction of Inspired Oxygen 09/18/24 07:49 09/18/24 07:49 09/18/24 07:56 Temperature 94.8 F L Pulse Rate 81 79 Respiratory Rate 22 H 20 Blood Pressure 108/69 Pulse Oximetry 96 96 95 Oxygen Delivery BiPAP BiPAP Oxygen Flow Rate Fraction of Inspired Oxygen 30 09/18/24 08:16 Temperature 95.1 F L Pulse Rate 76 Respiratory Rate 21 H Blood Pressure 101/76 Pulse Oximetry 96 Oxygen Delivery Oxygen Flow Rate Fraction of Inspired Oxygen Exam 2 Const: General: cooperative, comfortable, no acute distress and well developed Orientation/consciousness: oriented to person, oriented to place, oriented to time and patient oriented x3 HENMT: Head: normal to inspection, normocephalic and atraumatic Mouth: Yes Normal oral and palatal mucosa present and Yes moist mucous membranes Eyes: General: appearance normal, both eyes and all related structures C onjunctivae: conjunctivae normal Sclera: sclerae normal Pupils: Equal, round and reactive pupils present Neck: Neck: normal visual inspection Chest: Chest palpation & inspection: normal inspection of the chest Resp: Effort & Inspection: able to speak in complete sentences (on Bipap conversation limitied) Auscultation: diminished lung sounds Cardio: Jugular venous distension: no JVD Rate: regular rate Rhythm: r egular rhythm Heart sounds: S1 normal heart sound present and S2 normal heart sound present GI: Inspection: distended GI Palp: Yes Soft to palpation Auscultation: n ormal bowel sounds Rectal Exam: deferred Skin: General skin exam: normal color and no rashes or lesions noted Neuro: General: oriented to person, oriented to place, oriented to time and patient oriented x3 Cranial nerves: Yes Equal, round and reactive pupils present Speech: normal speech Extrem: General: normal to inspection and no clubbing, cyanosis or edema Psych: Appearance: grossly normal and well kempt Affect: normal affect Results Labs 09/18/24 05:23 09/18/24 03:42 Labs: Short CBC 09/18/24 09/18/24 Range/Units 03:42 05:23 WBC 7.4 (4.5-10.0) K/mm3 Hgb 6.6 L* 6.2 L* (14.0-18.0) g/dL Hct 23.4 L 22.5 L (42.0-52.0) % Plt Count 69 L (150-375) k/mm3 BMP 09/18/24 03:42 Sodium 138 Potassium 3.1 L Chloride 101 Carbon Dioxide 29 BUN 21 H Creatinine 1.33 H Glucose 172 H Calcium 8.3 L Cardiac Enzymes 09/18/24 09/18/24 Range/Units 03:42 06:24 Total Creatine Kinase 88 (55-170) U/L Troponin I 0.068 H* 0.537 H* D (0.000-0.034) ng/mL Liver Function 09/18/24 Range/Units 03:42 Total Bilirubin 1.2 (0.2-1.3) mg/dL AST 64 H (17-59) U/L ALT 26 (6-50) U/L Alkaline Phosphatase 156 H (38-126) U/L Albumin 3.1 L (3.5-5.1) g/dL Urine 09/18/24 Range/Units 03:42 Urine Color Yellow (Yellow) Urine Appearance Clear (Clear) Urine pH 6.5 (5.0-9.0) Ur Specific [place] 1.012 (1.001-1.035) Urine Protein Trace (Negative) mg/dL Urine Glucose (UA) Negative (Negative) mg/dL
--- NOTE | 2024-09-18 08:51 | WPDCNINT ---
Assessment and Plan Assessment and plan (1) Anemia: Code(s): D64.9 - Anemia, unspecified Status: Acute Assessment and Plan: Patient was recently diagnosed with anemia as an outpatient. He was getting iron infusions and was also being evaluated for lower GI bleed as he had a CT scan ordered. Patient was unable to get CT scan because he was unable to lay flat. CT scan shows finding consists of colon cancer. I suspect patient may be having lower GI bleed Patient will be transfused 2 units PRBC Monitor hemoglobin Hold anticoagulation IV PPI q.12 hours GI consult (2) Sepsis: Code(s): A41.9 - Sepsis, unspecified organism Status: Acute Assessment and Plan: Sepsis secondary to UTI IV fluid bolus followed by IV fluid maintain IV Zosyn was started which will be continued (3) ALBERT (obstructive sleep apnea): Code(s): G47.33 - Obstructive sleep apnea (adult) (pediatric) Status: Acute Assessment and Plan: Currently on BiPAP (4) Acute and chronic respiratory failure: Code(s): J96.20 - Acute and chronic respiratory failure, unspecified whether with hypoxia or hypercapnia Status: Acute Assessment and Plan: Acute on chronic respiratory failure likely multifactorial secondary to encephalopathy, obesity hypoventilation syndrome, obstructive sleep apnea, atelectasis ? Chronic diaphragmatic weakness with elevated hemidiaphragm ABG shows hypercarbia and respiratory acidosis. Patient was placed on BiPAP in the ER Repeat ABG was worse and I have increased IPAP to 16 and decrease FiO2 25 % Will repeat ABG. If it continues to worsen patient will need intubation. Patient is awake and enough that he does not need intubation for his mental status at this time. CT scan reviewed Continue Bronchodilators and trelegy at home dose (5) Colon cancer: Code(s): C18.9 - Malignant neoplasm of colon, unspecified Status: Acute Assessment and Plan: CT scan Circumferential wall thickening of ascending colon with soft tissue infiltration into the adjacent pericolonic fat, highly suspicious for colonic adenocarcinoma. Consider colonoscopy for further assessment and tissue sampling. Cirrhotic liver. 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 Potential alternative consideration. Enlarged gastrohepatic lymph node, suspicious for metastatic lymph node Consult GI but at this time patient is too unstable for any procedures. He will need eventually colonoscopy. PPI (6) Atelectasis: Code(s): J98.11 - Atelectasis Status: Acute Assessment and Plan: Continue BiPAP (7) Obesity hypoventilation syndrome: Code(s): E66.2 - Morbid (severe) obesity with alveolar hypoventilation Status: Acute Assessment and Plan: Continue BiPAP (8) Elevated serum creatinine: Code(s): R79.89 - Other specified abnormal findings of blood chemistry Status: Acute Assessment and Plan: Baseline creatinine unknown. Patient presented with creatinine 1.33. Patient is getting IV fluids sepsis. Monitor urine output electrolytes and creatinine. CT scan does not show any stones or obstruction He does have a large prostate and has a Still catheter now Monitor urine output electrolytes and creatinine (9) Elevated troponin: Code(s): R79.89 - Other specified abnormal findings of blood chemistry Status: Acute Assessment and Plan: Presented with elevated troponin. EKG reviewed. No history of chest pain. Likely stress mediated troponin leak secondary to respiratory failure, anemia and sepsis Serial troponin Check echo At this time he is not a candidate for any antiplatelet or anticoagulation due to anemia and finding suggestive of colon cancer (10) Lower extremity edema: Code(s): R60.0 - Localized edema Status: Acute Assessment and Plan: Appears to be chronic bilateral lower extremity edema. Likely secondary to cor pulmonale. Check echocardiogram. Plan DVT prophylaxis -SCD Stress ulcer prophylaxis -PPI Nutrition - npo Code Status -I had long discussion patient's , daughter and grandson who is in ICU pediatric nurse. We discussed goals of care and code status. Patient is at this time full code but they are going to discuss among themselves. I explained that the patient may need intubation and at this time has guarded prognosis. Total Critical Care Time - 60 minutes Due to a high probability of clinically significant, life threatening deterioration, the patient required my highest level of preparedness to intervene emergently and I personally spent this critical care time directly and personally managing the patient. This critical care time included obtaining a history; examining the patient; pulse oximetry; ordering and review of studies; arranging urgent treatment with development of a management plan; evaluation of patient's response to treatment; frequent reassessment; and discussions with other providers. It was exclusive of separately billable procedures and treating other patients and teaching time. Please see Assessment and Plan section and the rest of the note for further information on patient assessment and treatment [employer] Consult Note Consult date: 09/18/24 HPI: Wyatt Lyon is a 79 year old male who chronic respiratory failure on oxygen at 4.5 L during the day and BiPAP at night, GBS, chronic anemia, bladder stone status post lithotripsy, dementia, insomnia, obesity hypoventilation syndrome, obstructive sleep apnea, diaphragm dysfunction was brought to ER by his with altered mental status. Patient is unable to provide any meaningful history. History was obtained from patient's family at bedside and physician sign-out. At baseline appears the patient is severely limited when it comes to physical activity. He mostly sits on the computer and cannot walk to the kitchen without having to stop and rest on the way. Has received on exertion has lower extremity swelling. She states that yesterday patient was doing okay at his baseline and last night when he went to bed their conditioning was not working room was much warm. She went to basement to sleep and left her who did not wanted to go up stairs. She states she came around 2:30 a.m. and found him sitting on the side of bed confused and drowsy. He was not wearing his BiPAP at that time. She suspects that he went to bathroom and when he came back he was laying on the side of bed without BiPAP with his underwear his hand.. She was unable to get him back in the bed hence called EMS. EMS found him to be afebrile confused and brought him to the ER. She denies the any hematochezia or melena. She denies any cough fever chest pain abdominal pain loss of consciousness over last few days. Full review of systems not obtainable. She did admit the patient was recently diagnosed with anemia and he was suspected to be having GI blood loss and was supposed to get a CT scan but they have not been able to do it yet. Patient receives most of his care through [facility] health system. She states his last colonoscopy was more than 6 years ago. She does not know the results. Workup in the ER showed patient to be anemic with hemoglobin of 6.6 and platelet count at 69 WBC normal. Coags were unremarkable. Potassium 3.1 creatinine 1.3 lactic 3.5 which is improved 1.7 magnesium 1.7 troponin mildly elevated UA suggestive of UTI. CT scan finding as below. Patient was given IV fluids started on IV antibiotics and placed on BiPAP Patient is now being admitted to ICU for further evaluation management Review of Systems Review of Systems: All systems reviewed & are unremarkable except as noted in HPI and below (HPI) [facility] Past Medical History Medical History (Updated 09/18/24 @ 10:02 by Stefanie Marie APRN) Dementia Chronic respiratory failure GBS (Guillain [place] syndrome) Leg edema, right Bladder stone Surgical History Surgical History (Updated 09/18/24 @ 09:02 by Parveen Diamond MD) H/O lithotripsy Family History Family History Father Asthma Social History Social History Smoking status: Never smoker Alcohol intake: never Substance use: never Substance use type: does not use Do You Feel Safe in your Home?: Yes Lack of Transportation: No Lack of Food: Never True Current Housing: I Have Housing Concerned About Future Housing: No Difficulty Paying Gas/Electric Bills: No Difficulty Paying for Meds: No Currently Unemployed: No Education: Associate Degree Difficulty w/ Childcare or Family Care: No Spiritual care concerns: No Meds Home Medications and Allergies Home Medications ?Medication ?Instructions ?Recorded ?Confirmed ?Type albuterol sulfate 90 mcg/actuation 1 inhalation inhalation Q4H PRN 04/12/19 07/27/19 History aerosol inhaler Shortness Of Breath magnesium oxide 400 mg PO DAILY 04/12/19 07/27/19 History melatonin 10 mg tablet 10 mg PO HS 04/12/19 07/27/19 History trazodone 100 mg tablet 100 mg PO HS 04/12/19 07/27/19 History furosemide 20 mg tablet 20 mg PO QAM 04/13/19 07/27/19 History potassium chloride 10 mEq 10 meq PO DAILY 04/13/19 07/27/19 History capsule,extended release rivastigmine 9.5 mg/24 hour 9.5 mg transdermal DAILY 04/13/19 09/18/24 History transdermal patch fluticasone fur. 100 mcg-umeclid 1 inhalation inhalation DAILY 07/26/19 07/27/19 History 62.5 mcg-vilant 25 mcg inhalat.powder (Trelegy Ellipta) hydrocodone 5 mg-acetaminophen 325 1 - 2 tablet PO Q6H PRN pain #20 04/30/20 Rx mg tablet tabs sulfamethoxazole 800 1 tablet PO Q12H #10 tabs 07/27/19 Rx mg-trimethoprim 160 mg tablet Allergies Allergy/AdvReac Type Severity Reaction Status Date / Time cephalexin Allergy Unknown Hives Verified 07/27/19 11:28 Vital Signs Vital Signs - 24 hr 09/18/24 03:13 09/18/24 03:25 09/18/24 03:25 Temperature 38.5 C H Pulse Rate 131 H 131 H Respiratory Rate 47 H 47 H Blood Pressure 129/59 L Pulse Oximetry 97 96 Oxygen Delivery Room Air Oxygen Flow Rate Fraction of Inspired Oxygen 09/18/24 03:30 09/18/24 03:37 09/18/24 04:03 Temperature Pulse Rate 124 H Respiratory Rate 38 H Blood Pressure Pulse Oximetry 96 96 97 Oxygen Delivery BiPAP Non-Rebreather Mask BiPAP Oxygen Flow Rate 15 Fraction of Inspired Oxygen 09/18/24 04:11 09/18/24 04:22 09/18/24 04:32 Temperature 38.5 C H 38.2 C H 37.9 C H Pulse Rate 115 H 110 H 105 H Respiratory Rate 31 H 32 H 26 H Blood Pressure 118/52 L 138/60 104/56 L Pulse Oximetry 94 96 97 Oxygen Delivery Oxygen Flow Rate Fraction of Inspired Oxygen 09/18/24 04:39 09/18/24 04:42 09/18/24 04:52 Temperature 37.9 C H 37.3 C 37.1 C Pulse Rate 102 H 96 Respiratory Rate 29 H 29 H Blood Pressure 120/55 L 101/52 L Pulse Oximetry 95 94 Oxygen Delivery Oxygen Flow Rate Fraction of Inspired Oxygen 09/18/24 05:00 09/18/24 05:01 09/18/24 05:12 Temperature 36.8 C 36.6 C Pulse Rate 115 H 94 90 Respiratory Rate 34 H 26 H 25 H Blood Pressure 117/60 118/64 Pulse Oximetry 96 93 95 Oxygen Delivery BiPAP Oxygen Flow Rate Fraction of Inspired Oxygen 09/18/24 05:22 09/18/24 06:08 09/18/24 06:11 Temperature 36.3 C L 35.4 C L 35.4 C L Pulse Rate 92 89 85 Respiratory Rate 20 17 19 Blood Pressure 117/66 117/67 113/75 Pulse Oximetry 94 98 Oxygen Delivery Oxygen Flow Rate Fraction of Inspired Oxygen 06/23/25 06:18 09/18/24 06:22 09/18/24 06:32 Temperature 35.3 C L 35.3 C L Pulse Rate 100 87 80 Respiratory Rate 30 H 23 H 21 H Blood Pressure 119/89 107/63 Pulse Oximetry 93 97 97 Oxygen Delivery BiPAP Oxygen Flow Rate Fraction of Inspired Oxygen 09/18/24 06:42 09/18/24 06:52 09/18/24 06:53 Temperature 35.2 C L 35.1 C L 35.1 C L Pulse Rate 82 84 85 Respiratory Rate 36 H 28 H 21 H Blood Pressure 108/65 110/55 L 110/55 L Pulse Oximetry 97 98 99 Oxygen Delivery Oxygen Flow Rate Fraction of Inspired Oxygen 09/18/24 07:08 09/18/24 07:10 09/18/24 07:40 Temperature 35 C L 34.8 C L Pulse Rate 83 82 82 Respiratory Rate 20 20 19 Blood Pressure 104/63 104/63 115/72 Pulse Oximetry 100 99 99 Oxygen Delivery Oxygen Flow Rate Fraction of Inspired Oxygen 09/18/24 07:49 09/18/24 07:49 09/18/24 07:56 Temperature 34.9 C L Pulse Rate 81 79 Respiratory Rate 22 H 20 Blood Pressure 108/69 Pulse Oximetry 96 96 95 Oxygen Delivery BiPAP BiPAP Oxygen Flow Rate Fraction of Inspired Oxygen 30 09/18/24 08:16 Temperature 35.1 C L Pulse Rate 76 Respiratory Rate 21 H Blood Pressure 101/76 Pulse Oximetry 96 Oxygen Delivery Oxygen Flow Rate Fraction of Inspired Oxygen Exam Narrative: General: Morbidly obese male who is on BiPAP and is arousable and follows commands. He answers some questions but is hearing impairment Lungs/Chest: Decreased breath sounds at bases bilaterally, no significant wheezing heard Cardiac: RRR. Normal S1 S2. No murmurs Circulation: Feet are warm Abdomen: Normal bowel sounds. Morbidly obese. Soft. NT. ND. Extremities: Bilateral pitting edema present, left leg shows chronic venous stasis changes with ulcer that has healed : Still in place Neurologic: Follows commands with all 4 extremities,. Moves all 4 extremities PERRL, AO x1 Skin: No Rash Results Labs 09/18/24 10:38 09/18/24 03:42 Labs: Impressions Chest X-Ray 09/18/24 05:38 Impression: Moderate right pleural effusion with right basilar atelectasis/edema versus possibly pneumonia. Numerous nodular opacities overlying the left upper lobe/left lung, which may be external to the lung itself. Consider chest CT to further evaluate. Stable elevation left hemidiaphragm. Chest/Abdomen/Pelvis CTA 09/18/24 06:38 Impression: Very limited evaluation for pulmonary embolus due to timing of the contrast bolus. No definite large central pulmonary embolus. Circumferential wall thickening of ascending colon with soft tissue infiltration into the adjacent pericolonic fat, highly suspicious for colonic adenocarcinoma. Consider colonoscopy for further assessment and tissue sampling. Cirrhotic liver. 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 Potential alternative consideration. Enlarged gastrohepatic lymph node, suspicious for metastatic lymph node. Bibasilar pulmonary atelectasis. Head CT 09/18/24 07:12 Impression: No significant abnormality seen. Short CBC 09/18/24 09/18/24 Range/Units 03:42 05:23 WBC 7.4 (4.5-10.0) K/mm3 Hgb 6.6 L* 6.2 L* (14.0-18.0) g/dL Hct 23.4 L 22.5 L (42.0-52.0) % Plt Count 69 L (150-375) k/mm3 BMP 09/18/24 03:42 Sodium 138 Potassium 3.1 L Chloride 101 Carbon Dioxide 29 BUN 21 H Creatinine 1.33 H Glucose 172 H Calcium 8.3 L Cardiac Enzymes 09/18/24 09/18/24 Range/Units 03:42 06:24 Total Creatine Kinase 88 (55-170) U/L Troponin I 0.068 H* 0.537 H* D (0.000-0.034) ng/mL Liver Function 09/18/24 Range/Units 03:42 Total Bilirubin 1.2 (0.2-1.3) mg/dL AST 64 H (17-59) U/L ALT 26 (6-50) U/L Alkaline Phosphatase 156 H (38-126) U/L Albumin 3.1 L (3.5-5.1) g/dL Urine 09/18/24 Range/Units 03:42 Urine Color Yellow (Yellow) Urine Appearance Clear (Clear) Urine pH 6.5 (5.0-9.0) Ur Specific [place] 1.012 (1.001-1.035) Urine Protein Trace (Negative) mg/dL Urine Glucose (UA) Negative (Negative) mg/dL ECG Interpretation: SINUS RHYTHM BORDERLINE AV CONDUCTION DELAY EARLY PRECORDIAL R/S TRANSITION BORDERLINE ST-T WAVE ABNORMALITY- HIGH LATERAL LEADS BASELINE WANDER- I, II, III, AVR, AVF, V1 BORDERLINE ECG Quality VTE Prophylaxis VTE prophylaxis: mechanical ordered Hospitalist MIPS Advance Care Plan I have confirmed that the patient's Advanced Care Plan is present, code status is documented, or surrogate decision maker is listed in patient medical record.: Yes Medication Reconciliation I have utilized all available resources to obtain, update and review the patients current medications (includes all prescriptions, OTC, herbals, cannabis, and nutritional supplements).: Yes
[2024-09-18 09:16] LABS: Alveolar/Arterial O2 Gradient 53.6 mmHg; Base Excess ABG 3.6 mEq/l (+/-2.0); Fractional Inspired Oxygen 25 %; HCO3 ABG 28.8 mEq/l (22.0-26.0); Oxygen Content ABG 10.8 %vol (16.0-22.0); Oxygen Saturation ABG 93.8 % (95.0-100.0); PCO2 ABG 46.9 mmHg (35.0-45.0); PO2 FiO2 Ratio Arterial Blood 2.76 %; Total Hemoglobin 8.3 g/dL (12.0-18.0); pH ABG 7.406 (7.350-7.450)
[2024-09-18 09:20] LABS: Device BIPAP; Modified Allen's Test Pass; Site Drawn RIGHT RADIAL
[2024-09-18 09:21] LABS: Expiratory Pressure 6 cmH2O; Inspiratory Pressure 16 cmH2O
--- NOTE | 2024-09-18 09:25 | ADMGEN ---
This patient, Wyatt Lyon, was admitted to Intensive Care Unit-2 at 0859. Patient/family oriented to hospital policies and general routines including ID bracelet, bed and alarms, visiting hours, pain management, procedures, bathroom and other care routines, personal items, smoking policy, room service/diet, and visiting hours. Information on how to activate the Rapid Response Team has been discussed. Patient/Family are encouraged to report perceived risks to care and to ask questions if they do not understand what they are told or what they should do.
[2024-09-18] MEDS: LIDOCAINE 1% PF INJ 5 ML VIAL INFILTRATE (09:50)
[2024-09-18] MEDS: LACTATED RINGERS 1,000 ML 75 ML IV CONT (10:48)
[2024-09-18] MEDS: MAGNESIUM SULF 2 GM/WATER 50ML 2 GM/50 ML BAG IVPB (10:48)
[2024-09-18] MEDS: PANTOPRAZOLE SODIUM IV 40 MG VIAL IV PUSH ×2 (10:49→20:23)
[2024-09-18 10:53] LABS: Hematocrit 23.7 % (42.0-52.0); Immature Platelet Fraction Pct 9.8 % (0.9-11.2); Mean Corpuscular HGB Conc 28.3 g/dl (32-36); Mean Corpuscular Hemoglobin 21.8 pg (26-34); Mean Corpuscular Volume 76.9 fl (80-100); Platelet Count Result 68 k/mm3 (150-375); Red Blood Count 3.08 M/mm3 (4.6-6.20); Red Cell Distribution Width 20.6 % (11.5-14.5); White Blood Count 6.9 K/mm3 (4.5-10.0)
[2024-09-18] MEDS: NOREPINEPHRINE 8 MG/D5W 250 ML 8 MG/250 ML BAG 9.38 MG IV CONT (10:55)
[2024-09-18 11:04] LABS: Hemoglobin 6.7 g/dL (14.0-18.0)
--- NOTE | 2024-09-18 11:11 | P.PNCROSS_ITS ---
Event Note Event Note Event Note: Despite 2 units transfusion patient's hemoglobin came back at 6.8. I will rodrigues sfuse him 2 more units of PRBC. CTA was negative for any obvious bleeding I will check today nuclear medicine tagged RBC scan. Blood pressure is low after finishing IV fluid bolus. I will start Levophed infusion.
[2024-09-18 11:13] LABS: Iron 74 ug/dL (49-181)
--- NOTE | 2024-09-18 11:19 | P.HP_ITS ---
H&P: HPI History of Present Illness Date/Time: 09/18/24 11:19 Chief Complaint: AMS Narrative: Patient with history dementia, COPD on CPAP,, chronic anemia brought to hospital because of acute encephalopathy and shortness of breath. Patient lives at home by his . His Ac has not been working. he went to sleep around midnight and at 2:30 His found him very lethargic and off of BIPAP. Patient had high temperature. Patient was brought to hospital for further management. Patient did not have any chest pain, shortness the breath, abd pain, nausea vomiting. Patient has been having anemia for several months . He has been recommended to get colonoscopy but he has been postponing. He also has not been able to get CT because being? Claustrophobic or not able to lay flat. In the ER patient was found to be febrile 100.7, tachycardic and tachypneic. Lab test showed hemoglobin 6.6, WBC 7.4, creatinine 1.33. Troponin elevated. ABG showed respiratory acidosis. CT consented for possible colonic john nocarcinoma, liver masses, enlarged LN.GI team was consulted. Patient received 2 units of blood. Admitted to ICU for further management. Hemoglobin was 6.7. Two more blood transfusion ordered.GI RBC scan negative for active bleeding. patient had low blood pressure not responding to IVF. started on Levophed. plan for colonoscopy when patient is more stable. GI and surgery on board. Review of Systems Review of Systems: All systems reviewed & are unremarkable except as noted in HPI and below (HPI) [facility] Past Medical History Medical History Dementia Chronic respiratory failure GBS (Guillain [place] syndrome) Leg edema, right Bladder stone Surgical History Surgical History H/O lithotripsy Family History Family History Father Asthma Social History Social History Smoking status: Never smoker Alcohol intake: never Substance use: never Substance use type: does not use Do You Feel Safe in your Home?: Yes Lack of Transportation: No Lack of Food: Never True Current Housing: I Have Housing Concerned About Future Housing: No Difficulty Paying Gas/Electric Bills: No Difficulty Paying for Meds: No Currently Unemployed: No Education: Associate Degree Difficulty w/ Childcare or Family Care: No Spiritual care concerns: No Meds Home Medications and Allergies Home Medications ?Medication ?Instructions ?Recorded ?Confirmed ?Type magnesium oxide 400 mg PO DAILY 04/12/19 09/18/24 History melatonin 10 mg tablet 10 mg PO HS 04/12/19 09/18/24 History trazodone 100 mg tablet 150 mg PO HS 04/12/19 09/18/24 History furosemide 20 mg tablet 20 mg PO Q12H 04/13/19 09/18/24 History potassium chloride 10 mEq 10 meq PO DAILY 04/13/19 09/18/24 History capsule,extended release rivastigmine 9.5 mg/24 hour 9.5 mg transdermal DAILY 04/13/19 09/18/24 History transdermal patch fluticasone fur. 100 mcg-umeclid 1 inhalation inhalation DAILY 07/26/19 09/18/24 History 62.5 mcg-vilant 25 mcg inhalat.powder (Trelegy Ellipta) metformin 500 mg tablet 500 mg PO DAILY 09/18/24 09/18/24 History Allergies Allergy/AdvReac Type Severity Reaction Status Date / Time cephalexin Allergy Unknown Hives Verified 07/27/19 11:28 Vital Signs Vital Signs - 24 hr 09/18/24 03:13 09/18/24 03:25 09/18/24 03:25 Temperature 101.3 F H Pulse Rate 131 H 131 H Respiratory Rate 47 H 47 H Blood Pressure 129/59 L Pulse Oximetry 97 96 Oxygen Delivery Room Air Oxygen Flow Rate Fraction of Inspired Oxygen 09/18/24 03:30 09/18/24 03:37 09/18/24 04:03 Temperature Pulse Rate 124 H Respiratory Rate 38 H Blood Pressure Pulse Oximetry 96 96 97 Oxygen Delivery BiPAP Non-Rebreather Mask BiPAP Oxygen Flow Rate 15 Fraction of Inspired Oxygen 09/18/24 04:11 09/18/24 04:22 09/18/24 04:32 Temperature 101.3 F H 100.7 F H 100.2 F H Pulse Rate 115 H 110 H 105 H Respiratory Rate 31 H 32 H 26 H Blood Pressure 118/52 L 138/60 104/56 L Pulse Oximetry 94 96 97 Oxygen Delivery Oxygen Flow Rate Fraction of Inspired Oxygen 09/18/24 04:39 09/18/24 04:42 09/18/24 04:52 Temperature 100.2 F H 99.2 F 98.8 F Pulse Rate 102 H 96 Respiratory Rate 29 H 29 H Blood Pressure 120/55 L 101/52 L Pulse Oximetry 95 94 Oxygen Delivery Oxygen Flow Rate Fraction of Inspired Oxygen 09/18/24 05:00 09/18/24 05:01 09/18/24 05:12 Temperature 98.2 F 97.8 F Pulse Rate 115 H 94 90 Respiratory Rate 34 H 26 H 25 H Blood Pressure 117/60 118/64 Pulse Oximetry 96 93 95 Oxygen Delivery BiPAP Oxygen Flow Rate Fraction of Inspired Oxygen 09/18/24 05:22 09/18/24 06:08 09/18/24 06:11 Temperature 97.3 F L 95.8 F L 95.8 F L Pulse Rate 92 89 85 Respiratory Rate 20 17 19 Blood Pressure 117/66 117/67 113/75 Pulse Oximetry 94 98 Oxygen Delivery Oxygen Flow Rate Fraction of Inspired Oxygen 09/18/24 06:18 09/18/24 06:22 09/18/24 06:32 Temperature 95.6 F L 95.5 F L Pulse Rate 100 87 80 Respiratory Rate 30 H 23 H 21 H Blood Pressure 119/89 107/63 Pulse Oximetry 93 97 97 Oxygen Delivery BiPAP Oxygen Flow Rate Fraction of Inspired Oxygen 09/18/24 06:42 09/18/24 06:52 09/18/24 06:53 Temperature 95.4 F L 95.2 F L 95.2 F L Pulse Rate 82 84 85 Respiratory Rate 36 H 28 H 21 H Blood Pressure 108/65 110/55 L 110/55 L Pulse Oximetry 97 98 99 Oxygen Delivery Oxygen Flow Rate Fraction of Inspired Oxygen 09/18/24 07:08 09/18/24 07:10 09/18/24 07:40 Temperature 95 F L 94.7 F L Pulse Rate 83 82 82 Respiratory Rate 20 20 19 Blood Pressure 104/63 104/63 115/72 Pulse Oximetry 100 99 99 Oxygen Delivery Oxygen Flow Rate Fraction of Inspired Oxygen 09/18/24 07:49 09/18/24 07:49 09/18/24 07:56 Temperature 94.8 F L Pulse Rate 81 79 Respiratory Rate 22 H 20 Blood Pressure 108/69 Pulse Oximetry 96 96 95 Oxygen Delivery BiPAP BiPAP Oxygen Flow Rate Fraction of Inspired Oxygen 30 09/18/24 08:16 09/18/24 08:50 09/18/24 09:26 Temperature 95.1 F L 95.6 F L 96.3 F L Pulse Rate 76 74 72 Respiratory Rate 21 H 19 22 H Blood Pressure 101/76 104/66 98/64 L Pulse Oximetry 96 95 94 Oxygen Delivery Oxygen Flow Rate Fraction of Inspired Oxygen 09/18/24 09:43 09/18/24 10:00 09/18/24 10:00 Temperature 96.6 F L Pulse Rate 84 66 64 Respiratory Rate 30 H 19 Blood Pressure 89/47 L Pulse Oximetry 95 92 Oxygen Delivery BiPAP Oxygen Flow Rate Fraction of Inspired Oxygen 09/18/24 10:15 09/18/24 10:55 09/18/24 11:00 Temperature Pulse Rate 63 61 60 Respiratory Rate 19 Blood Pressure 79/42 L 81/49 L Pulse Oximetry 92 Oxygen Delivery BiPAP Oxygen Flow Rate Fraction of Inspired Oxygen 09/18/24 11:16 Temperature Pulse Rate 59 L Respiratory Rate Blood Pressure 89/60 L Pulse Oximetry Oxygen Delivery Oxygen Flow Rate Fraction of Inspired Oxygen Exam Narrative: General: Morbidly obese male who is on BiPAP and is arousable and follows commands. Lungs/Chest: Decreased breath sounds at bases bilaterally, no significant wheezing heard Cardiac: RRR. Normal S1 S2. No murmurs Circulation: Feet are warm Abdomen: Normal bowel sounds. Morbidly obese. Soft. NT. ND. Extremities: Bilateral pitting edema present, left leg shows chronic venous stasis changes with ulcer that has healed : Still in place Neurologic: Follows commands with all 4 extremities,. Moves all 4 extremities PERRL, AO x1 Skin: No Rash H&P: Results Labs Labs: Short CBC 09/18/24 09/18/24 09/18/24 Range/Units 03:42 05:23 10:38 WBC 7.4 6.9 (4.5-10.0) K/mm3 Hgb 6.6 L* 6.2 L* 6.7 L* (14.0-18.0) g/dL Hct 23.4 L 22.5 L 23.7 L (42.0-52.0) % Plt Count 69 L 68 L (150-375) k/mm3 BMP 09/18/24 03:42 Sodium 138 Potassium 3.1 L Chloride 101 Carbon Dioxide 29 BUN 21 H Creatinine 1.33 H Glucose 172 H Calcium 8.3 L Cardiac Enzymes 09/18/24 09/18/24 Range/Units 03:42 06:24 Total Creatine Kinase 88 (55-170) U/L Troponin I 0.068 H* 0.537 H* D (0.000-0.034) ng/mL Liver Function 09/18/24 Range/Units 03:42 Total Bilirubin 1.2 (0.2-1.3) mg/dL AST 64 H (17-59) U/L ALT 26 (6-50) U/L Alkaline Phosphatase 156 H (38-126) U/L Albumin 3.1 L (3.5-5.1) g/dL Urine 09/18/24 Range/Units 03:42 Urine Color Yellow (Yellow) Urine Appearance Clear (Clear) Urine pH 6.5 (5.0-9.0) Ur Specific [place] 1.012 (1.001-1.035) Urine Protein Trace (Negative) mg/dL Urine Glucose (UA) Negative (Negative) mg/dL Assessment and Plan Assessment and plan (1) Anemia: Code(s): D64.9 - Anemia, unspecified Status: Acute (2) Sepsis: Code(s): A41.9 - Sepsis, unspecified organism Status: Acute (3) ALBERT (obstructive sleep apnea): Code(s): G47.33 - Obstructive sleep apnea (adult) (pediatric) Status: Acute (4) Acute and chronic respiratory failure: Code(s): J96.20 - Acute and chronic respiratory failure, unspecified whether with hypoxia or hypercapnia Status: Acute (5) Colon cancer: Code(s): C18.9 - Malignant neoplasm of colon, unspecified Status: Acute (6) Atelectasis: Code(s): J98.11 - Atelectasis Status: Acute (7) Obesity hypoventilation syndrome: Code(s): E66.2 - Morbid (severe) obesity with alveolar hypoventilation Status: Acute (8) Elevated serum creatinine: Code(s): R79.89 - Other specified abnormal findings of blood chemistry Status: Acute (9) Elevated troponin: Code(s): R79.89 - Other specified abnormal findings of blood chemistry Status: Acute (10) Lower extremity edema: Code(s): R60.0 - Localized edema Status: Acute Plan chronic anemia/ secondary to GI bleed and colon adenocarcinoma received 4 units of blood Monitor H&H RBC scan neg GI and surgery on board colonoscopy when patient stable colon adenocarcinoma with metastasis CEA elevated, CA125, AFP pending colonoscopy when patient stable respiratory acidosis BIpap Continue to monitor Acute encephalopathy Co2 retention, Sepsis CT head neg for acute abnormality On BIPAP Follow culture result Continue IVAbx septic shock IV Abx follow culture Levophed NSTEMI demand ischemia in setting of Sepsis monitor hypokalemia replete as needed Quality VTE Prophylaxis VTE prophylaxis: mechanical ordered
[2024-09-18 11:22] LABS: Troponin I 0.872 ng/mL (0.000-0.034)
[2024-09-18 11:23] LABS: Percent Iron Saturation 21 % (20-50)
--- NOTE | 2024-09-18 11:51 | PM.CNGS ---
Assessment and Plan Assessment and plan (1) Elevated troponin: Code(s): R79.89 - Other specified abnormal findings of blood chemistry <Gelaantoinette Cat PA-C - Last Filed: 09/18/24 13:20> Status: Acute <Juliet Geller MARAH Cat - Last Filed: 09/18/24 13:20> (2) Thrombocytopenia: Code(s): D69.6 - Thrombocytopenia, unspecified <Gelaantoinette Cat PA-C - Last Filed: 09/18/24 13:20> Status: Acute <Gela KasiaSiddharth Cat PA-C - Last Filed: 09/18/24 13:20> (3) Cirrhosis: Qualifiers: Ascites presence: without ascites Hepatic cirrhosis type: unspecified hepatic cirrhosis Qualified Code(s): K74.60 - Unspecified cirrhosis of liver <Juliet Cat PA-C - Last Filed: 09/18/24 13:20> Code(s): K74.60 - Unspecified cirrhosis of liver <Gelaantoinette Cat PA-C - Last Filed: 09/18/24 13:20> Status: Acute <Gelaantoinette Cat PA-C - Last Filed: 09/18/24 13:20> Assessment and Plan: CTA demonstrated cirrhotic liver. 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 Liver enzymes fairly normal aside from slightly elevated AST and ALT. <GelaNoemi Cat PA-C - Last Filed: 09/18/24 13:20> (4) Portal hypertension: Code(s): K76.6 - Portal hypertension <GelaNoemi Cat PA-C - Last Filed: 09/18/24 13:20> Status: Acute <GelaNoemi Cat PA-C - Last Filed: 09/18/24 13:20> (5) Colonic mass: Code(s): K63.89 - Other specified diseases of intestine <Juliet Cat PA-C - Last Filed: 09/18/24 13:20> Status: Acute <Juliet Cat PA-C - Last Filed: 09/18/24 13:20> Assessment and Plan: CTA demonstrated circumferential wall thickening of the ascending colon with soft tissue infiltration into adjacent pericolonic fat suspicious for colonic adenocarcinoma. GI on board and ordered CEA and CA -125. CEA 240. Ca-125 still pending. Plan for colonoscopy once stable. If tagged red blood cell scan positive for active GI bleed, consider surgical intervention or transfer to outside hospital. <Juliet Cat PA-C - Last Filed: 09/18/24 13:20> (6) Microcytic anemia: Code(s): D50.9 - Iron deficiency anemia, unspecified <Juliet Cat PA-C - Last Filed: 09/18/24 13:20> Status: Acute <Juliet Cat PA-C - Last Filed: 09/18/24 13:20> Assessment and Plan: Etiology likely multifactorial including possible cancer. No signs of active GI bleeding including hematemesis, hematochezia, or melena. Hemoglobin ranging from 6.2-6.7. Received 2 units of packed red blood cells this time frame. Two more units ordered by certified medical dosimetrist. <Juliet Cat PA-C - Last Filed: 09/18/24 13:20> (7) Sepsis: Code(s): A41.9 - Sepsis, unspecified organism <Juliet Cat PA-C - Last Filed: 09/18/24 13:20> Status: Acute <Juliet Cat PA-C - Last Filed: 09/18/24 13:20> Assessment and Plan: Hypotensive, increased respiratory rate, decreased temp,and AMS. Patient currently on Levophed. <Juliet Cat PA-C - Last Filed: 09/18/24 13:20> (8) Acute and chronic respiratory failure: Code(s): J96.20 - Acute and chronic respiratory failure, unspecified whether with hypoxia or hypercapnia <Juliet Cat PA-C - Last Filed: 09/18/24 13:20> Status: Acute <Juliet Cat PA-C - Last Filed: 09/18/24 13:20> Assessment and Plan: Patient wears continuous BiPAP. Continue per certified medical dosimetrist recs. <Juliet Cat PA-C - Last Filed: 09/18/24 13:20> History of Present Illness Consult details Consult date: 09/18/24 <Juliet Cat PA-C - Last Filed: 09/18/24 13:20> 09/18/24 <Jordyn Jeronimo MD - Last Filed: 09/18/24 13:08> Narrative: Patient is a 79 year old male with history of dementia, Guillain Lovilia syndrome, and chronic respiratory failure (on continuous BiPap) who we have been asked to see in surgical consultation for a colon mass and anemia. Patient presented to the ED around 0300 this morning with complaints of shortness of breath and elevated temperature. Reportedly, the patient's had gone downstairs in the middle of the night due to the upstairs being hot. She could not get the patient to come downstairs with her so she placed a fan on him. When she return upstairs to check on her around 0230, the patient was lying with his BiPap off and was very lethargic and somnolent. . Upon arrival to ED, Hgb was 6.6. He was given two units of blood, with no increase in Hgb. It decreased to 6.2 before rising back up to 6.7. [employer] ordering two more units. CTA demonstrated circumferential wall thickening of ascending colon with soft tissue infiltration into the adjacent pericolonic fat, highly suspicious for colonic adenocarcinoma. Consider colonoscopy for further assessment and tissue sampling. CTA also showed cirrhotic liver. 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 Potential alternative consideration. Enlarged gastrohepatic lymph node, suspicious for metastatic lymph node. Tagged RBC scan has been ordered. Normal temperatures since arrival in ED. Patient is hypotensive. Started on Levophed. Due to patient's dementia, family at bedside provided majority of patient's history. Family does not note patient to have had and melena or hematochezia. No N/V. Unsure of when his last BM was. Prior abdominal surgical history includes cholecystectomy. Last colonoscopy was over 7 years ago. Family states that he had polyps removed, but no other suspicious findings were appreciated. He saw his PCP about a month ago who recommended a colonoscopy and/or abd CT. Patient was taken to get his CT, but was unable to lie flat for extended period of time due to his respiratory failure. <Juliet Cat PA-C - Last Filed: 09/18/24 13:20> [facility] Past Medical History Medical History: Medical History Dementia Chronic respiratory failure GBS (Guillain Lovilia syndrome) Leg edema, right Bladder stone <Juliet Cat PA-C - Last Filed: 09/18/24 13:20> Surgical History Surgical History: Surgical History H/O lithotripsy <Juliet Cat PA-C - Last Filed: 09/18/24 13:20> Family History Family History: Family History Father Asthma <Juliet Cat PA-C - Last Filed: 09/18/24 13:20> Social History Social History: Social History Smoking status: Never smoker Alcohol intake: never Substance use: never Substance use type: does not use Do You Feel Safe in your Home?: Yes Lack of Transportation: No Lack of Food: Never True Current Housing: I Have Housing Concerned About Future Housing: No Difficulty Paying Gas/Electric Bills: No Difficulty Paying for Meds: No Currently Unemployed: No Education: Associate Degree Difficulty w/ Childcare or Family Care: No Spiritual care concerns: No <Juliet Cat PA-C - Last Filed: 09/18/24 13:20> Meds Home Medications and Allergies Home medications: Home Medications ?Medication ?Instructions ?Recorded ?Confirmed ?Type magnesium oxide 400 mg PO DAILY 04/12/19 09/18/24 History melatonin 10 mg tablet 10 mg PO HS 04/12/19 09/18/24 History trazodone 100 mg tablet 150 mg PO HS 04/12/19 09/18/24 History furosemide 20 mg tablet 20 mg PO Q12H 04/13/19 09/18/24 History potassium chloride 10 mEq 10 meq PO DAILY 04/13/19 09/18/24 History capsule,extended release rivastigmine 9.5 mg/24 hour 9.5 mg transdermal DAILY 04/13/19 09/18/24 History transdermal patch fluticasone fur. 100 mcg-umeclid 1 inhalation inhalation DAILY 07/26/19 09/18/24 History 62.5 mcg-vilant 25 mcg inhalat.powder (Trelegy Ellipta) metformin 500 mg tablet 500 mg PO DAILY 09/18/24 09/18/24 History <Juliet Cat PA-C - Last Filed: 09/18/24 13:20> Allergies/Adverse reactions: Allergies Allergy/AdvReac Type Severity Reaction Status Date / Time cephalexin Allergy Unknown Hives Verified 07/27/19 11:28 <Juliet Cat PA-C - Last Filed: 09/18/24 13:20> Vital Signs Vital Signs - 24 hr 09/18/24 03:13 09/18/24 03:25 09/18/24 03:25 Temperature 101.3 F H Pulse Rate 131 H 131 H Respiratory Rate 47 H 47 H Blood Pressure 129/59 L Pulse Oximetry 97 96 Oxygen Delivery Room Air Oxygen Flow Rate Fraction of Inspired Oxygen 09/18/24 03:30 09/18/24 03:37 09/18/24 04:03 Temperature Pulse Rate 124 H Respiratory Rate 38 H Blood Pressure Pulse Oximetry 96 96 97 Oxygen Delivery BiPAP Non-Rebreather Mask BiPAP Oxygen Flow Rate 15 Fraction of Inspired Oxygen 09/18/24 04:11 09/18/24 04:22 09/18/24 04:32 Temperature 101.3 F H 100.7 F H 100.2 F H Pulse Rate 115 H 110 H 105 H Respiratory Rate 31 H 32 H 26 H Blood Pressure 118/52 L 138/60 104/56 L Pulse Oximetry 94 96 97 Oxygen Delivery Oxygen Flow Rate Fraction of Inspired Oxygen 09/18/24 04:39 09/18/24 04:42 09/18/24 04:52 Temperature 100.2 F H 99.2 F 98.8 F Pulse Rate 102 H 96 Respiratory Rate 29 H 29 H Blood Pressure 120/55 L 101/52 L Pulse Oximetry 95 94 Oxygen Delivery Oxygen Flow Rate Fraction of Inspired Oxygen 09/18/24 05:00 09/18/24 05:01 09/18/24 05:12 Temperature 98.2 F 97.8 F Pulse Rate 115 H 94 90 Respiratory Rate 34 H 26 H 25 H Blood Pressure 117/60 118/64 Pulse Oximetry 96 93 95 Oxygen Delivery BiPAP Oxygen Flow Rate Fraction of Inspired Oxygen 09/18/24 05:22 09/18/24 06:08 09/18/24 06:11 Temperature 97.3 F L 95.8 F L 95.8 F L Pulse Rate 92 89 85 Respiratory Rate 20 17 19 Blood Pressure 117/66 117/67 113/75 Pulse Oximetry 94 98 Oxygen Delivery Oxygen Flow Rate Fraction of Inspired Oxygen 09/18/24 06:18 09/18/24 06:22 09/18/24 06:32 Temperature 95.6 F L 95.5 F L Pulse Rate 100 87 80 Respiratory Rate 30 H 23 H 21 H Blood Pressure 119/89 107/63 Pulse Oximetry 93 97 97 Oxygen Delivery BiPAP Oxygen Flow Rate Fraction of Inspired Oxygen 09/18/24 06:42 09/18/24 06:52 09/18/24 06:53 Temperature 95.4 F L 95.2 F L 95.2 F L Pulse Rate 82 84 85 Respiratory Rate 36 H 28 H 21 H Blood Pressure 108/65 110/55 L 110/55 L Pulse Oximetry 97 98 99 Oxygen Delivery Oxygen Flow Rate Fraction of Inspired Oxygen 09/18/24 07:08 09/18/24 07:10 09/18/24 07:40 Temperature 95 F L 94.7 F L Pulse Rate 83 82 82 Respiratory Rate 20 20 19 Blood Pressure 104/63 104/63 115/72 Pulse Oximetry 100 99 99 Oxygen Delivery Oxygen Flow Rate Fraction of Inspired Oxygen 09/18/24 07:49 09/18/24 07:49 09/18/24 07:56 Temperature 94.8 F L Pulse Rate 81 79 Respiratory Rate 22 H 20 Blood Pressure 108/69 Pulse Oximetry 96 96 95 Oxygen Delivery BiPAP BiPAP Oxygen Flow Rate Fraction of Inspired Oxygen 30 09/18/24 08:16 09/18/24 08:50 09/18/24 09:26 Temperature 95.1 F L 95.6 F L 96.3 F L Pulse Rate 76 74 72 Respiratory Rate 21 H 19 22 H Blood Pressure 101/76 104/66 98/64 L Pulse Oximetry 96 95 94 Oxygen Delivery Oxygen Flow Rate Fraction of Inspired Oxygen 09/18/24 09:43 09/18/24 10:00 09/18/24 10:00 Temperature 96.6 F L Pulse Rate 84 66 64 Respiratory Rate 30 H 19 Blood Pressure 89/47 L Pulse Oximetry 95 92 Oxygen Delivery BiPAP Oxygen Flow Rate Fraction of Inspired Oxygen 09/18/24 10:15 09/18/24 10:55 09/18/24 11:00 Temperature Pulse Rate 63 61 60 Respiratory Rate 19 Blood Pressure 79/42 L 81/49 L Pulse Oximetry 92 Oxygen Delivery BiPAP Oxygen Flow Rate Fraction of Inspired Oxygen 25 09/18/24 11:16 09/18/24 11:42 Temperature 96.4 F L Pulse Rate 59 L 63 Respiratory Rate 24 H Blood Pressure 89/60 L 90/58 L Pulse Oximetry 96 Oxygen Delivery Oxygen Flow Rate Fraction of Inspired Oxygen <Juliet Cat PA-C - Last Filed: 09/18/24 13:20> Exam Const: General: uncomfortable <MARAH Aguillon Last Filed: 09/18/24 13:20> Other: Patient complaining of hand pain at IV site. Territory Manager [employer] notified and pain meds ordered. <MARAH Aguillon Last Filed: 09/18/24 13:20> HENMT: Mouth: Yes moist mucous membranes <MARAH Aguillon Last Filed: 09/18/24 13:20> Eyes: General: appearance normal, both eyes and all related structures <MARAH Aguillon Last Filed: 09/18/24 13:20> Neck: Neck: supple and no JVD <MARAH Aguillon Last Filed: 09/18/24 13:20> GI: Inspection: non-distended <MARAH Aguillon Last Filed: 09/18/24 13:20> GI Palp: Yes Soft to palpation, No Firmness to palpation present (GI), No Tenderness to palpation present (GI) and No Guarding due to palpation present (GI) <Juliet Cat PA-C - Last Filed: 09/18/24 13:20> Auscultation: abnormal bowel sounds (hypoactive) <MARAH Aguillon Last Filed: 09/18/24 13:20> Skin: General skin exam: normal color and no rashes or lesions noted <MARAH Aguillon Last Filed: 09/18/24 13:20> Extrem: General: normal to inspection <MARAH Aguillon Last Filed: 09/18/24 13:20> Psych: Other: dementia <MARAH Aguillon Last Filed: 09/18/24 13:20> Results Labs Result diagrams: 09/18/24 10:38 09/18/24 03:42 <MARAH Aguillon Last Filed: 09/18/24 13:20> Labs: Abnormal lab results 09/18/24 09/18/24 09/18/24 Range/Units 03:24 03:42 05:23 RBC 3.11 L (4.6-6.20) M/mm3 Hgb 6.6 L* 6.2 L* (14.0-18.0) g/dL Hct 23.4 L 22.5 L (42.0-52.0) % MCV 75.2 L (80-100) fl MCH 21.2 L (26-34) pg MCHC 28.2 L (32-36) g/dl RDW 21.2 H (11.5-14.5) % Plt Count 69 L (150-375) k/mm3 Immature Gran % (Auto) 2.0 H (0-0.5) % Neut % (Auto) 74.2 H (45.5-73.1) % Lymph % (Auto) 10.5 L (18.3-44.2) % [place] % (Auto) 10.7 H (2.6-8.5) % Lymph # (Auto) 0.78 L (0.9-3.2) K/mm3 [place] # (Auto) 0.8 H (0.1-0.6) K/mm3 Abs Immat Gran (auto) 0.15 H (0.00-0.031) K/mm3 PT 17.2 H (11.1-14.7) Seconds ABG pH 7.302 L (7.350-7.450) ABG pCO2 56.1 H (35.0-45.0) mmHg ABG pO2 142.4 H (80.0-100.0) mmHg ABG HCO3 27.1 H (22.0-26.0) mEq/l ABG O2 Saturation (95.0-100.0) % ABG O2 Content 13.7 L (16.0-22.0) %vol Total Hemoglobin 9.8 L (12.0-18.0) g/dL Potassium 3.1 L (3.4-5.0) mmol/L BUN 21 H (9-20) mg/dL Creatinine 1.33 H (0.7-1.3) mg/dL Estimated GFR 52 L (59 - ) Glucose 172 H (65-110) mg/dL Lactic Acid 3.5 H (0.7-2.0) mmol/L Calcium 8.3 L (8.4-10.2) mg/dL AST 64 H (17-59) U/L Alkaline Phosphatase 156 H (38-126) U/L Troponin I 0.068 H* (0.000-0.034) ng/mL NT-Pro-B Natriuret Pep 131 H (19.9-100) pg/mL Albumin 3.1 L (3.5-5.1) g/dL Carcinoembryonic Ag (0.0-3.0) ng/mL Leukocyte Esterase Rfl 3+ H (Negative) RENATA/UL Urine RBC 3-5 H (0-2) /hpf Urine WBC 11-20 H (0-3) /hpf Crossmatch See Detail 09/18/24 09/18/24 09/18/24 Range/Units 06:24 07:23 09:10 RBC (4.6-6.20) M/mm3 Hgb (14.0-18.0) g/dL Hct (42.0-52.0) % MCV (80-100) fl MCH (26-34) pg MCHC (32-36) g/dl RDW (11.5-14.5) % Plt Count (150-375) k/mm3 Immature Gran % (Auto) (0-0.5) % Neut % (Auto) (45.5-73.1) % Lymph % (Auto) (18.3-44.2) % [place] % (Auto) (2.6-8.5) % Lymph # (Auto) (0.9-3.2) K/mm3 [place] # (Auto) (0.1-0.6) K/mm3 Abs Immat Gran (auto) (0.00-0.031) K/mm3 PT (11.1-14.7) Seconds ABG pH 7.281 L* (7.350-7.450) ABG pCO2 65.5 H* 46.9 H (35.0-45.0) mmHg ABG pO2 114.7 H 69.0 L (80.0-100.0) mmHg ABG HCO3 30.2 H 28.8 H (22.0-26.0) mEq/l ABG O2 Saturation 93.8 L (95.0-100.0) % ABG O2 Content 10.4 L 10.8 L (16.0-22.0) %vol Total Hemoglobin 7.6 L* 8.3 L (12.0-18.0) g/dL Potassium (3.4-5.0) mmol/L BUN (9-20) mg/dL Creatinine (0.7-1.3) mg/dL Estimated GFR (59 - ) Glucose (65-110) mg/dL Lactic Acid (0.7-2.0) mmol/L Calcium (8.4-10.2) mg/dL AST (17-59) U/L Alkaline Phosphatase (38-126) U/L Troponin I 0.537 H* D (0.000-0.034) ng/mL NT-Pro-B Natriuret Pep (19.9-100) pg/mL Albumin (3.5-5.1) g/dL Carcinoembryonic Ag (0.0-3.0) ng/mL Leukocyte Esterase Rfl (Negative) RENATA/UL Urine RBC (0-2) /hpf Urine WBC (0-3) /hpf Crossmatch 09/18/24 Range/Units 10:38 RBC 3.08 L (4.6-6.20) M/mm3 Hgb 6.7 L* (14.0-18.0) g/dL Hct 23.7 L (42.0-52.0) % MCV 76.9 L (80-100) fl MCH 21.8 L (26-34) pg MCHC 28.3 L (32-36) g/dl RDW 20.6 H (11.5-14.5) % Plt Count 68 L (150-375) k/mm3 Immature Gran % (Auto) (0-0.5) % Neut % (Auto) (45.5-73.1) % Lymph % (Auto) (18.3-44.2) % [place] % (Auto) (2.6-8.5) % Lymph # (Auto) (0.9-3.2) K/mm3 [place] # (Auto) (0.1-0.6) K/mm3 Abs Immat Gran (auto) (0.00-0.031) K/mm3 PT (11.1-14.7) Seconds ABG pH (7.350-7.450) ABG pCO2 (35.0-45.0) mmHg ABG pO2 (80.0-100.0) mmHg ABG HCO3 (22.0-26.0) mEq/l ABG O2 Saturation (95.0-100.0) % ABG O2 Content (16.0-22.0) %vol Total Hemoglobin (12.0-18.0) g/dL Potassium (3.4-5.0) mmol/L BUN (9-20) mg/dL Creatinine (0.7-1.3) mg/dL Estimated GFR (59 - ) Glucose (65-110) mg/dL Lactic Acid (0.7-2.0) mmol/L Calcium (8.4-10.2) mg/dL AST (17-59) U/L Alkaline Phosphatase (38-126) U/L Troponin I 0.872 H* D (0.000-0.034) ng/mL NT-Pro-B Natriuret Pep (19.9-100) pg/mL Albumin (3.5-5.1) g/dL Carcinoembryonic Ag 240.0 H (0.0-3.0) ng/mL Leukocyte Esterase Rfl (Negative) RENATA/UL Urine RBC (0-2) /hpf Urine WBC (0-3) /hpf Crossmatch Diabetes panel 09/18/24 Range/Units 03:42 Sodium 138 (137-145) mmol/L Potassium 3.1 L (3.4-5.0) mmol/L Chloride 101 (98-107) mmol/L Carbon Dioxide 29 (22-30) mmol/L BUN 21 H (9-20) mg/dL Creatinine 1.33 H (0.7-1.3) mg/dL Glucose 172 H (65-110) mg/dL Calcium 8.3 L (8.4-10.2) mg/dL AST 64 H (17-59) U/L ALT 26 (6-50) U/L Alkaline Phosphatase 156 H (38-126) U/L Total Protein 6.5 (6.3-8.2) g/dL Albumin 3.1 L (3.5-5.1) g/dL Calcium panel 09/18/24 Range/Units 03:42 Calcium 8.3 L (8.4-10.2) mg/dL Albumin 3.1 L (3.5-5.1) g/dL Pituitary panel 09/18/24 Range/Units 03:42 Sodium 138 (137-145) mmol/L Potassium 3.1 L (3.4-5.0) mmol/L Chloride 101 (98-107) mmol/L Carbon Dioxide 29 (22-30) mmol/L BUN 21 H (9-20) mg/dL Creatinine 1.33 H (0.7-1.3) mg/dL Glucose 172 H (65-110) mg/dL Calcium 8.3 L (8.4-10.2) mg/dL Adrenal panel 09/18/24 Range/Units 03:42 Sodium 138 (137-145) mmol/L Potassium 3.1 L (3.4-5.0) mmol/L Chloride 101 (98-107) mmol/L Carbon Dioxide 29 (22-30) mmol/L BUN 21 H (9-20) mg/dL Creatinine 1.33 H (0.7-1.3) mg/dL Glucose 172 H (65-110) mg/dL Calcium 8.3 L (8.4-10.2) mg/dL Total Bilirubin 1.2 (0.2-1.3) mg/dL AST 64 H (17-59) U/L ALT 26 (6-50) U/L Alkaline Phosphatase 156 H (38-126) U/L Total Protein 6.5 (6.3-8.2) g/dL Albumin 3.1 L (3.5-5.1) g/dL All other labs normal. <Juliet Cat PA-C - Last Filed: 09/18/24 13:20> Attestation Supervising Provider Attestation I, Jordyn Jeronimo MD, have provided a substantive portion of the care of this patient. I performed the history, exam and/or medical decision making for this encounter. abd - S, sl dist, NT, labs and imaging reviewed, cont to transfuse as necessary, HD stable at this point, CTA negative and TRBC scan ordered, cont serial exams, may need transfer for IR intervention vs endoscopy, surgery last option as pt c stage 4 disease Jordyn Jeronimo MD 09/18/24;13:06 <Jordyn Jeronimo MD - Last Filed: 09/18/24 13:08>
[2024-09-18] MEDS: MORPHINE SULFATE (*CRX) 2 MG/ML INJ IV PUSH (11:55)
[2024-09-18 12:09] LABS: MRSA (PCR) NOT DETECTED (NOT DETECTE)
[2024-09-18] MEDS: PERFLUTREN LIPID MICROSPHERES 1.5 ML VIAL DILUTED TO 10 ML TOTAL VOLUME IV PUSH (12:33)
--- NOTE | 2024-09-18 14:34 | IVDEFINITY ---
Prior to administration of IV Definity the patient was educated on the risks and benefits of the imaging enhancing agent including potential adverse side effects. The patient verbalized understanding. Allergies were verified. No exclusion criteria were identified and at least one of the following inclusion criteria were met: 1) physician request, 2) patient technically difficult to image (per the [place] [employer] guidelines of two or more segments not discernable within the apical view), or 3) questionable left ventricular function. ?
[2024-09-18] MEDS: CENTRAL LINE FLUSH 10 ML IV PUSH ×2 (15:30→20:23)
[2024-09-18 18:43] LABS: Hematocrit 28.1 % (42.0-52.0); Hemoglobin 8.2 g/dL (14.0-18.0)
[2024-09-18 18:44] LABS: Hematocrit 27.7 % (42.0-52.0); Hemoglobin 8.2 g/dL (14.0-18.0); Immature Platelet Fraction Pct 11.6 % (0.9-11.2); Mean Corpuscular HGB Conc 29.6 g/dl (32-36); Mean Corpuscular Volume 77.8 fl (80-100); Platelet Count Result 68 k/mm3 (150-375); Red Blood Count 3.56 M/mm3 (4.6-6.20); Red Cell Distribution Width 20.2 % (11.5-14.5)
--- NOTE | 2024-09-18 20:04 | WPDGICN ---
Assessment and Plan Assessment and plan (1) Colonic mass: Code(s): K63.89 - Other specified diseases of intestine Status: Acute Assessment and Plan: This patient presents with concerning findings, including a suspicion of colon cancer and focal liver masses, with the liver showing signs of cirrhosis. Several lab abnormalities, specifically an elevated INR, thrombocytopenia, and hypoalbuminemia, further support the probabbility of underlying cirrhosis. His markedly elevated CEA level of 240 is compatible with colon cancer, though it is not a definitive diagnostic marker on its own. A colonoscopy was previously recommended at [facility] but could not be performed due to the patient's instability for sedation. We face a similar challenge now; his recent requirement for pressors, with an unstable respiratory status, places him at significant risk for anesthesia. We will continue to closely follow his clinical course, and once his condition stabilizes , we will proceed with preparation and scheduling of the colonoscopy. (2) Cirrhosis: Qualifiers: Hepatic cirrhosis type: unspecified hepatic cirrhosis Ascites presence: without ascites Qualified Code(s): K74.60 - Unspecified cirrhosis of liver Code(s): K74.60 - Unspecified cirrhosis of liver Status: Acute (3) Portal hypertension: Code(s): K76.6 - Portal hypertension Status: Acute (4) Thrombocytopenia: Code(s): D69.6 - Thrombocytopenia, unspecified Status: Acute GI Consult Note Consult date/time: 09/18/24 20:04 Reason for consult: Anemia, colon mass- focal liver lesions. HPI: Wyatt Lyon is a 79 year old male Who is currently in the intensive care unit in a critical status with a BiPAP mask and recently weaned of pressors. The patient has a history of cholecystectomy, COPD and urosepsis, and our service is consulted for the finding of hemoglobin of 6.[address] scan which showed a nodule liver compatible with cirrhosis with multiple focal masses in the left lobe. In addition there is as circumferential wall thickening in the ascending colon, suspicious for adenocarcinoma. Of note, he had a colonoscopy at [place] less than 10 years ago which was reportedly normal. His admission labs show: Hemoglobin 6.2, hematocrit 23, platelet count 69, INR 1.4, total bilirubin 1.2, AST 64, ALT 26, albumin 3.1. Review of Systems Review of Systems: All systems reviewed & are unremarkable except as noted in HPI and below PMFSH Past Medical History Medical History Dementia Chronic respiratory failure GBS (Guillain [place] syndrome) Leg edema, right Bladder stone Surgical History Surgical History H/O lithotripsy Family History Family History Father Asthma Social History Social History Smoking status: Never smoker Alcohol intake: never Substance use: never Substance use type: does not use Do You Feel Safe in your Home?: Yes Lack of Transportation: No Lack of Food: Never True Current Housing: I Have Housing Concerned About Future Housing: No Difficulty Paying Gas/Electric Bills: No Difficulty Paying for Meds: No Currently Unemployed: No Education: Associate Degree Difficulty w/ Childcare or Family Care: No Spiritual care concerns: No Meds Home Medications and Allergies Home Medications ?Medication ?Instructions ?Recorded ?Confirmed ?Type magnesium oxide 400 mg PO DAILY 04/12/19 09/18/24 History melatonin 10 mg tablet 10 mg PO HS 04/12/19 09/18/24 History trazodone 100 mg tablet 150 mg PO HS 04/12/19 09/18/24 History furosemide 20 mg tablet 20 mg PO Q12H 04/13/19 09/18/24 History potassium chloride 10 mEq 10 meq PO DAILY 04/13/19 09/18/24 History capsule,extended release rivastigmine 9.5 mg/24 hour 9.5 mg transdermal DAILY 04/13/19 09/18/24 History transdermal patch fluticasone fur. 100 mcg-umeclid 1 inhalation inhalation DAILY 07/26/19 09/18/24 History 62.5 mcg-vilant 25 mcg inhalat.powder (Trelegy Ellipta) metformin 500 mg tablet 500 mg PO DAILY 09/18/24 09/18/24 History Allergies Allergy/AdvReac Type Severity Reaction Status Date / Time cephalexin Allergy Unknown Hives Verified 07/27/19 11:28 Vital Signs Vital Signs - 24 hr 09/18/24 03:13 09/18/24 03:25 09/18/24 03:25 Temperature 101.3 F H Pulse Rate 131 H 131 H Respiratory Rate 47 H 47 H Blood Pressure 129/59 L Pulse Oximetry 97 96 Oxygen Delivery Room Air Oxygen Flow Rate Fraction of Inspired Oxygen 09/18/24 03:30 09/18/24 03:37 09/18/24 04:03 Temperature Pulse Rate 124 H Respiratory Rate 38 H Blood Pressure Pulse Oximetry 96 96 97 Oxygen Delivery BiPAP Non-Rebreather Mask BiPAP Oxygen Flow Rate 15 Fraction of Inspired Oxygen 09/18/24 04:11 09/18/24 04:22 09/18/24 04:32 Temperature 101.3 F H 100.7 F H 100.2 F H Pulse Rate 115 H 110 H 105 H Respiratory Rate 31 H 32 H 26 H Blood Pressure 118/52 L 138/60 104/56 L Pulse Oximetry 94 96 97 Oxygen Delivery Oxygen Flow Rate Fraction of Inspired Oxygen 09/18/24 04:39 09/18/24 04:42 09/18/24 04:52 Temperature 100.2 F H 99.2 F 98.8 F Pulse Rate 102 H 96 Respiratory Rate 29 H 29 H Blood Pressure 120/55 L 101/52 L Pulse Oximetry 95 94 Oxygen Delivery Oxygen Flow Rate Fraction of Inspired Oxygen 09/18/24 05:00 09/18/24 05:01 09/18/24 05:12 Temperature 98.2 F 97.8 F Pulse Rate 115 H 94 90 Respiratory Rate 34 H 26 H 25 H Blood Pressure 117/60 118/64 Pulse Oximetry 96 93 95 Oxygen Delivery BiPAP Oxygen Flow Rate Fraction of Inspired Oxygen 09/18/24 05:22 09/18/24 06:08 09/18/24 06:11 Temperature 97.3 F L 95.8 F L 95.8 F L Pulse Rate 92 89 85 Respiratory Rate 20 17 19 Blood Pressure 117/66 117/67 113/75 Pulse Oximetry 94 98 Oxygen Delivery Oxygen Flow Rate Fraction of Inspired Oxygen 09/18/24 06:18 09/18/24 06:22 09/18/24 06:32 Temperature 95.6 F L 95.5 F L Pulse Rate 100 87 80 Respiratory Rate 30 H 23 H 21 H Blood Pressure 119/89 107/63 Pulse Oximetry 93 97 97 Oxygen Delivery BiPAP Oxygen Flow Rate Fraction of Inspired Oxygen 09/18/24 06:42 09/18/24 06:52 09/18/24 06:53 Temperature 95.4 F L 95.2 F L 95.2 F L Pulse Rate 82 84 85 Respiratory Rate 36 H 28 H 21 H Blood Pressure 108/65 110/55 L 110/55 L Pulse Oximetry 97 98 99 Oxygen Delivery Oxygen Flow Rate Fraction of Inspired Oxygen 09/18/24 07:08 09/18/24 07:10 09/18/24 07:40 Temperature 95 F L 94.7 F L Pulse Rate 83 82 82 Respiratory Rate 20 20 19 Blood Pressure 104/63 104/63 115/72 Pulse Oximetry 100 99 99 Oxygen Delivery Oxygen Flow Rate Fraction of Inspired Oxygen 09/18/24 07:49 09/18/24 07:49 09/18/24 07:56 Temperature 94.8 F L Pulse Rate 81 79 Respiratory Rate 22 H 20 Blood Pressure 108/69 Pulse Oximetry 96 96 95 Oxygen Delivery BiPAP BiPAP Oxygen Flow Rate Fraction of Inspired Oxygen 30 09/18/24 08:16 09/18/24 08:50 09/18/24 09:26 Temperature 95.1 F L 95.6 F L 96.3 F L Pulse Rate 76 74 72 Respiratory Rate 21 H 19 22 H Blood Pressure 101/76 104/66 98/64 L Pulse Oximetry 96 95 94 Oxygen Delivery Oxygen Flow Rate Fraction of Inspired Oxygen 09/18/24 09:43 09/18/24 09:52 09/18/24 10:00 Temperature Pulse Rate 84 71 66 Respiratory Rate 30 H 20 Blood Pressure Pulse Oximetry 95 92 Oxygen Delivery BiPAP BiPAP Oxygen Flow Rate Fraction of Inspired Oxygen 09/18/24 10:00 09/18/24 10:15 09/18/24 10:55 Temperature 96.6 F L Pulse Rate 64 63 61 Respiratory Rate 19 19 Blood Pressure 89/47 L 79/42 L Pulse Oximetry 92 92 Oxygen Delivery BiPAP Oxygen Flow Rate Fraction of Inspired Oxygen 09/18/24 11:00 09/18/24 11:16 09/18/24 11:42 Temperature 96.4 F L Pulse Rate 60 59 L 63 Respiratory Rate 24 H Blood Pressure 81/49 L 89/60 L 90/58 L Pulse Oximetry 96 Oxygen Delivery Oxygen Flow Rate Fraction of Inspired Oxygen 09/18/24 11:58 09/18/24 12:00 09/18/24 12:00 Temperature 96.5 F L 96.7 F L Pulse Rate 69 60 58 L Respiratory Rate 30 H 27 H Blood Pressure 101/74 101/60 101/60 Pulse Oximetry 92 90 Oxygen Delivery Oxygen Flow Rate Fraction of Inspired Oxygen 09/18/24 12:00 09/18/24 12:00 09/18/24 12:55 Temperature Pulse Rate 60 61 86 Respiratory Rate 18 21 H Blood Pressure Pulse Oximetry 93 94 Oxygen Delivery BiPAP BiPAP Oxygen Flow Rate Fraction of Inspired Oxygen 25 09/18/24 12:58 09/18/24 13:45 09/18/24 14:00 Temperature 97.1 F L 97.3 F L Pulse Rate 60 59 L 60 Respiratory Rate 22 H 16 Blood Pressure 93/63 L 92/61 L 104/62 Pulse Oximetry 96 94 Oxygen Delivery Oxygen Flow Rate Fraction of Inspired Oxygen 09/18/24 14:00 09/18/24 14:00 09/18/24 14:15 Temperature 97.4 F L Pulse Rate 60 60 60 Respiratory Rate 16 Blood Pressure 104/62 103/60 Pulse Oximetry 94 Oxygen Delivery Oxygen Flow Rate Fraction of Inspired Oxygen 09/18/24 14:30 09/18/24 15:16 09/18/24 15:32 Temperature 97.6 F 97.6 F Pulse Rate 62 56 L 57 L Respiratory Rate 20 19 Blood Pressure 101/61 103/64 97/62 L Pulse Oximetry 96 95 Oxygen Delivery Oxygen Flow Rate Fraction of Inspired Oxygen 09/18/24 16:00 09/18/24 16:00 09/18/24 16:00 Temperature 97.8 F Pulse Rate 56 L 63 55 L Respiratory Rate 19 Blood Pressure 95/62 L 106/67 Pulse Oximetry 90 Oxygen Delivery Oxygen Flow Rate Fraction of Inspired Oxygen 09/18/24 16:29 09/18/24 16:30 09/18/24 16:32 Temperature 97.8 F Pulse Rate 63 80 65 Respiratory Rate 18 20 20 Blood Pressure 106/67 Pulse Oximetry 92 92 92 Oxygen Delivery Nasal Cannula Nasal Cannula Oxygen Flow Rate 4 4 Fraction of Inspired Oxygen 09/18/24 16:38 09/18/24 16:59 09/18/24 17:30 Temperature Pulse Rate 63 61 59 L Respiratory Rate Blood Pressure 106/67 109/68 96/53 L Pulse Oximetry Oxygen Delivery Oxygen Flow Rate Fraction of Inspired Oxygen 09/18/24 18:00 09/18/24 18:00 09/18/24 18:03 Temperature 97.5 F L Pulse Rate 65 65 70 Respiratory Rate 18 Blood Pressure 96/58 L 96/58 L Pulse Oximetry 92 Oxygen Delivery Oxygen Flow Rate Fraction of Inspired Oxygen Exam Narrative: Patient currently on a BiPAP machine, somnolent. Abdomen: Soft, distended, tympanitic, no hepatosplenomegaly. Results Labs 09/18/24 18:28 09/18/24 03:42 Labs: Short CBC 09/18/24 09/18/24 09/18/24 Range/Units 03:42 05:23 10:38 WBC 7.4 6.9 (4.5-10.0) K/mm3 Hgb 6.6 L* 6.2 L* 6.7 L* (14.0-18.0) g/dL Hct 23.4 L 22.5 L 23.7 L (42.0-52.0) % Plt Count 69 L 68 L (150-375) k/mm3 09/18/24 09/18/24 09/18/24 Range/Units 18:28 18:28 18:28 WBC 7.0 (4.5-10.0) K/mm3 Hgb 8.2 L 8.2 L (14.0-18.0) g/dL Hct 27.7 L 28.1 L (42.0-52.0) % Plt Count 68 L (150-375) k/mm3 [facility] 09/18/24 03:42 Sodium 138 Potassium 3.1 L Chloride 101 Carbon Dioxide 29 BUN 21 H Creatinine 1.33 H Glucose 172 H Calcium 8.3 L Cardiac Enzymes 09/18/24 09/18/24 09/18/24 Range/Units 03:42 06:24 10:38 Total Creatine Kinase 88 (55-170) U/L Troponin I 0.068 H* 0.537 H* D 0.872 H* D (0.000-0.034) ng/mL 09/18/24 Range/Units 18:28 Total Creatine Kinase (55-170) U/L Troponin I 1.180 H* D (0.000-0.034) ng/mL Liver Function 09/18/24 Range/Units 03:42 Total Bilirubin 1.2 (0.2-1.3) mg/dL AST 64 H (17-59) U/L ALT 26 (6-50) U/L Alkaline Phosphatase 156 H (38-126) U/L Albumin 3.1 L (3.5-5.1) g/dL Urine 09/18/24 Range/Units 03:42 Urine Color Yellow (Yellow) Urine Appearance Clear (Clear) Urine pH 6.5 (5.0-9.0) Ur Specific [place] 1.012 (1.001-1.035) Urine Protein Trace (Negative) mg/dL Urine Glucose (UA) Negative (Negative) mg/dL
[2024-09-19] VITALS (27 sets, daily range): BP systolic 92–137; BP diastolic 53–72; PULSE 52–113; RESP 15–34; TEMP 36.1–37.1; O2SAT 90–99
[2024-09-19 01:50] LABS: Hematocrit 25.7 % (42.0-52.0); Hemoglobin 7.6 g/dL (14.0-18.0); Immature Platelet Fraction Pct 11.3 % (0.9-11.2); Mean Corpuscular HGB Conc 29.6 g/dl (32-36); Mean Corpuscular Volume 77.6 fl (80-100); Platelet Count Result 65 k/mm3 (150-375); Red Blood Count 3.31 M/mm3 (4.6-6.20); Red Cell Distribution Width 20.3 % (11.5-14.5); White Blood Count 6.2 K/mm3 (4.5-10.0)
[2024-09-19] MEDS: LACTATED RINGERS 1,000 ML 75 ML IV CONT (03:52)
[2024-09-19] MEDS: CENTRAL LINE FLUSH 10 ML IV PUSH ×3 (03:58→20:42)
[2024-09-19 04:25] LABS: Hematocrit 26.7 % (42.0-52.0); Hemoglobin 7.7 g/dL (14.0-18.0); Immature Platelet Fraction Pct 10.4 % (0.9-11.2); Mean Corpuscular HGB Conc 28.8 g/dl (32-36); Mean Corpuscular Hemoglobin 22.8 pg (26-34); Platelet Count Result 64 k/mm3 (150-375); Red Blood Count 3.38 M/mm3 (4.6-6.20); Red Cell Distribution Width 20.4 % (11.5-14.5); White Blood Count 5.8 K/mm3 (4.5-10.0)
[2024-09-19 04:38] LABS: Alanine Aminotransferase 23 U/L (6-50); Albumin Level 2.4 g/dL (3.5-5.1); Alkaline Phosphatase 109 U/L (38-126); Anion Gap 2 mmol/L (4-12); Aspartate Amino Transferase 77 U/L (17-59); Bilirubin,Total 1.4 mg/dL (0.2-1.3); Blood Urea Nitrogen 18 mg/dL (9-20); Calcium 7.7 mg/dL (8.4-10.2); Carbon Dioxide 30 mmol/L (22-30); Chloride 108 mmol/L (98-107); Estimated CRCL calculation 63 ml/min; Estimated Glomerular Filt Rate > 60; Glucose 80 mg/dL (65-110); Magnesium 2.2 mg/dL (1.6-2.3); Phosphorus 3.4 mg/dL (2.5-4.5); Potassium 3.1 mmol/L (3.4-5.0); Sodium 140 mmol/L (137-145); Total Protein 5.5 g/dL (6.3-8.2)
[2024-09-19 04:51] LABS: Alveolar/Arterial O2 Gradient 94.5 mmHg; Base Excess ABG 3.4 mEq/l (+/-2.0); Carboxyhemoglobin 1.5 % THb (0-2.0); Fractional Inspired Oxygen 30 %; HCO3 ABG 28.2 mEq/l (22.0-26.0); Methemoglobin ABG 0.2 %THb (0-1.5); Oxygen Content ABG 11.4 %vol (16.0-22.0); Oxygen Saturation ABG 93.8 % (95.0-100.0); Oxyhemoglobin 91.2 % THb (90.0-100.0); PO2 ABG 67.7 mmHg (80.0-100.0); PO2 FiO2 Ratio Arterial Blood 2.26 %; Reduced Hemoglobin 7.1 %THb (0-5.0); Total Hemoglobin 8.8 g/dL (12.0-18.0); pH ABG 7.424 (7.350-7.450)
[2024-09-19 04:52] LABS: Device BIPAP; Modified Allen's Test Pass; Site Drawn LEFT RADIAL
[2024-09-19 04:53] LABS: Expiratory Pressure 6 cmH2O; Inspiratory Pressure 14 cmH2O
[2024-09-19] MEDS: PIPERACILLN/TAZ 3.375GM/NS50ML 3.375 GM/50 ML BAG IVPB ×3 (05:33→18:05)
--- NOTE | 2024-09-19 07:16 | WPDGIPROGNO ---
Progress Note: A&P Assessment and Plan (1) Colonic mass: Code(s): K63.89 - Other specified diseases of intestine Status: Acute Assessment and Plan: This patient's clinical picture, characterized by presumed colon cancer with liver metastases superimposed on a possibly cirrhotic liver, indicates a poor overall prognosis. Per nursing assessment, he is unable to mobilize from bed and is continuously dependent on BiPAP ventilation. This severely compromises his suitability for colonoscopy preparation and the associated intravenous sedation. Without a dramatic and sustained improvement in his general and respiratory status, a colonoscopy in the near future is highly improbable. A discussion between the family and the hospitalist/splitting machine operator team regarding the appropriateness and potential benefit of pursuing further aggressive and invasive procedures is strongly advised. Please feel free to contact us after having this discussion with the family. (2) Cirrhosis: Qualifiers: Hepatic cirrhosis type: unspecified hepatic cirrhosis Ascites presence: without ascites Qualified Code(s): K74.60 - Unspecified cirrhosis of liver Code(s): K74.60 - Unspecified cirrhosis of liver Status: Acute Subjective Date/time seen: 09/19/24 07:16 Objective Data Vital Signs Vital Signs: Vital Signs - 24 hr 09/18/24 07:40 09/18/24 07:49 09/18/24 07:49 Temperature 94.7 F L Pulse Rate 82 81 Respiratory Rate 19 22 H Blood Pressure 115/72 Pulse Oximetry 99 96 96 Oxygen Delivery BiPAP BiPAP Oxygen Flow Rate Fraction of Inspired Oxygen 30 09/18/24 07:56 09/18/24 08:16 09/18/24 08:50 Temperature 94.8 F L 95.1 F L 95.6 F L Pulse Rate 79 76 74 Respiratory Rate 20 21 H 19 Blood Pressure 108/69 101/76 104/66 Pulse Oximetry 95 96 95 Oxygen Delivery Oxygen Flow Rate Fraction of Inspired Oxygen 09/18/24 09:26 09/18/24 09:43 09/18/24 09:52 Temperature 96.3 F L Pulse Rate 72 84 71 Respiratory Rate 22 H 30 H 20 Blood Pressure 98/64 L Pulse Oximetry 94 95 92 Oxygen Delivery BiPAP BiPAP Oxygen Flow Rate Fraction of Inspired Oxygen 09/18/24 10:00 09/18/24 10:00 09/18/24 10:15 Temperature 96.6 F L Pulse Rate 66 64 63 Respiratory Rate 19 19 Blood Pressure 89/47 L Pulse Oximetry 92 92 Oxygen Delivery BiPAP Oxygen Flow Rate Fraction of Inspired Oxygen 09/18/24 10:55 09/18/24 11:00 09/18/24 11:16 Temperature Pulse Rate 61 60 59 L Respiratory Rate Blood Pressure 79/42 L 81/49 L 89/60 L Pulse Oximetry Oxygen Delivery Oxygen Flow Rate Fraction of Inspired Oxygen 09/18/24 11:42 09/18/24 11:58 09/18/24 12:00 Temperature 96.4 F L 96.5 F L 96.7 F L Pulse Rate 63 69 60 Respiratory Rate 24 H 30 H 27 H Blood Pressure 90/58 L 101/74 101/60 Pulse Oximetry 96 92 90 Oxygen Delivery Oxygen Flow Rate Fraction of Inspired Oxygen 09/18/24 12:00 09/18/24 12:00 09/18/24 12:00 Temperature Pulse Rate 58 L 60 61 Respiratory Rate 18 Blood Pressure 101/60 Pulse Oximetry 93 Oxygen Delivery BiPAP Oxygen Flow Rate Fraction of Inspired Oxygen 09/18/24 12:55 09/18/24 12:58 09/18/24 13:45 Temperature 97.1 F L 97.3 F L Pulse Rate 86 60 59 L Respiratory Rate 21 H 22 H 16 Blood Pressure 93/63 L 92/61 L Pulse Oximetry 94 96 94 Oxygen Delivery BiPAP Oxygen Flow Rate Fraction of Inspired Oxygen 09/18/24 14:00 09/18/24 14:00 09/18/24 14:00 Temperature 97.4 F L Pulse Rate 60 60 60 Respiratory Rate 16 Blood Pressure 104/62 104/62 Pulse Oximetry 94 Oxygen Delivery Oxygen Flow Rate Fraction of Inspired Oxygen 09/18/24 14:15 09/18/24 14:30 09/18/24 15:16 Temperature 97.6 F Pulse Rate 60 62 56 L Respiratory Rate 20 Blood Pressure 103/60 101/61 103/64 Pulse Oximetry 96 Oxygen Delivery Oxygen Flow Rate Fraction of Inspired Oxygen 09/18/24 15:32 09/18/24 16:00 09/18/24 16:00 Temperature 97.6 F 97.8 F Pulse Rate 57 L 56 L 63 Respiratory Rate 19 19 Blood Pressure 97/62 L 95/62 L 106/67 Pulse Oximetry 95 90 Oxygen Delivery Oxygen Flow Rate Fraction of Inspired Oxygen 09/18/24 16:00 09/18/24 16:29 09/18/24 16:30 Temperature Pulse Rate 55 L 63 80 Respiratory Rate 18 20 Blood Pressure Pulse Oximetry 92 92 Oxygen Delivery Nasal Cannula Nasal Cannula Oxygen Flow Rate 4 4 Fraction of Inspired Oxygen 09/18/24 16:32 09/18/24 16:38 09/18/24 16:59 Temperature 97.8 F Pulse Rate 65 63 61 Respiratory Rate 20 Blood Pressure 106/67 106/67 109/68 Pulse Oximetry 92 Oxygen Delivery Oxygen Flow Rate Fraction of Inspired Oxygen 09/18/24 17:30 09/18/24 18:00 09/18/24 18:00 Temperature Pulse Rate 59 L 65 65 Respiratory Rate Blood Pressure 96/53 L 96/58 L Pulse Oximetry Oxygen Delivery Oxygen Flow Rate Fraction of Inspired Oxygen 09/18/24 18:03 09/18/24 19:15 09/18/24 19:45 Temperature 97.5 F L Pulse Rate 70 56 L Respiratory Rate 18 23 H Blood Pressure 96/58 L Pulse Oximetry 92 94 94 Oxygen Delivery Nasal Cannula BiPAP Oxygen Flow Rate 4 Fraction of Inspired Oxygen 09/18/24 20:00 09/18/24 20:00 09/18/24 20:00 Temperature 97.5 F L Pulse Rate 55 L 54 L Respiratory Rate 18 Blood Pressure 94/68 L Pulse Oximetry 95 Oxygen Delivery BiPAP Oxygen Flow Rate Fraction of Inspired Oxygen 30 09/18/24 20:00 09/18/24 22:00 09/18/24 22:00 Temperature 97.5 F L Pulse Rate 55 L 57 L 57 L Respiratory Rate 18 Blood Pressure 94/68 L 91/59 L Pulse Oximetry 94 Oxygen Delivery Oxygen Flow Rate Fraction of Inspired Oxygen 09/18/24 22:00 09/19/24 00:00 09/19/24 00:00 Temperature Pulse Rate 57 L 59 L Respiratory Rate Blood Pressure 91/59 L 96/59 L Pulse Oximetry Oxygen Delivery BiPAP Oxygen Flow Rate Fraction of Inspired Oxygen 30 09/19/24 00:00 09/19/24 00:00 09/19/24 01:00 Temperature 97.2 F L Pulse Rate 59 L 59 L 58 L Respiratory Rate 18 30 H Blood Pressure 96/59 L Pulse Oximetry 94 94 Oxygen Delivery BiPAP Oxygen Flow Rate Fraction of Inspired Oxygen 09/19/24 02:00 09/19/24 02:00 09/19/24 04:00 Temperature 97.1 F L Pulse Rate 56 L 56 L 54 L Respiratory Rate 18 Blood Pressure 98/59 L 92/53 L Pulse Oximetry 99 Oxygen Delivery Oxygen Flow Rate Fraction of Inspired Oxygen 09/19/24 04:00 09/19/24 04:00 09/19/24 04:00 Temperature 97.0 F L Pulse Rate 54 L 54 L Respiratory Rate 18 Blood Pressure 92/53 L Pulse Oximetry 91 Oxygen Delivery BiPAP Oxygen Flow Rate Fraction of Inspired Oxygen 30 09/19/24 06:00 09/19/24 06:00 09/19/24 06:00 Temperature 97.3 F L Pulse Rate 55 L 55 L 55 L Respiratory Rate 18 Blood Pressure 97/59 L 97/59 L Pulse Oximetry 92 Oxygen Delivery Oxygen Flow Rate Fraction of Inspired Oxygen Intake/Output Intake/Output: Intake & Output 09/16/24 09/17/24 09/18/24 09/19/24 23:59 23:59 23:59 23:59 Intake Total 4206.6 1050 Output Total 1430 925 Balance 2776.6 125 Meds/Results Medications: Active Medications Generic Name Dose Route Start Last Admin Trade Name Freq PRN Reason Stop Dose Admin Acetaminophen 650 mg 09/18/24 07:16 Acetaminophen 650 Mg Suppository RECTAL Q6H PRN Mild Pain (1-3) or Fever Albuterol/Ipratropium 3 ml 09/18/24 08:49 Ipratropium 0.5 Mg/Albuterol Sulfate 2.5 Mg Ampul.Neb 3 Ml INHALATION Q6HRT PRN Wheezing Fluticasone/Umeclidinium/Vilanterol 1 puff 09/18/24 10:00 09/18/24 11:47 Fluticasone/Umeclidin/Vilanter 100-62.5-25 Mcg Ellipta INHALATION Not Given DAILYRT RICARDO Piperacillin/Tazobactam/Dextrose 3.375 gm in 50 mls @ 100 mls/hr 09/18/24 12:00 09/19/24 06:03 Zosyn 3.375 Gm/Ns 50 Ml IVPB Infused Q6H RICARDO Infusion Lactated Ringer's 1,000 mls @ 75 mls/hr 09/18/24 08:50 09/19/24 03:52 Lr - Lactated Ringers Iv IV CONT 09/19/24 08:49 75 mls/hr .[id number] RICARDO Administration Norepinephrine Bitartrate 8 mg in 250 mls @ 0 mls/hr 09/18/24 10:55 09/19/24 06:00 Levophed 8 Mg/D5w 250 Ml IV CONT 0 mcg/min .Q0M RICARDO 0 mls/hr Titration Protocol 0 MCG/MIN Morphine Sulfate 2 mg 09/18/24 11:52 09/18/24 11:55 Morphine Sulfate (*Crx) 2 Mg/Ml Inj IV PUSH 2 mg Q2H PRN Administration Pain Rated 7-10 Ondansetron HCl 4 mg 09/18/24 07:16 Ondansetron Inj 4 Mg/2 Ml Vial IV PUSH Q4H PRN Nausea Pantoprazole Sodium 40 mg 09/18/24 09:00 09/18/24 20:23 Pantoprazole Sodium Iv 40 Mg Vial IV PUSH 40 mg Q12HR RICARDO Administration Sodium Chloride 10 ml 09/18/24 14:00 09/19/24 03:58 Central Line Flush IV PUSH 10 ml Q8HR RICARDO Administration Sodium Chloride 10 ml 09/18/24 10:52 Central Line Flush IV PUSH PRN PRN with TPN bag changes Sodium Chloride 20 ml 09/18/24 10:52 Central Line Flush IV PUSH PRN PRN after blood draws Radiology Results: ITS Impressions Chest X-Ray 09/18/24 05:38 Impression: Moderate right pleural effusion with right basilar atelectasis/edema versus possibly pneumonia. Numerous nodular opacities overlying the left upper lobe/left lung, which may be external to the lung itself. Consider chest CT to further evaluate. Stable elevation left hemidiaphragm. Chest/Abdomen/Pelvis CTA 09/18/24 06:38 Impression: Very limited evaluation for pulmonary embolus due to timing of the contrast bolus. No definite large central pulmonary embolus. Circumferential wall thickening of ascending colon with soft tissue infiltration into the adjacent pericolonic fat, highly suspicious for colonic adenocarcinoma. Consider colonoscopy for further assessment and tissue sampling. Cirrhotic liver. 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 Potential alternative consideration. Enlarged gastrohepatic lymph node, suspicious for metastatic lymph node. Bibasilar pulmonary atelectasis. Head CT 09/18/24 07:12 Impression: No significant abnormality seen. GI Bleed Scan Nuclear Medicine 09/18/24 14:47 IMPRESSION: 1. No scintigraphic evidence for active gastrointestinal bleeding. Labs Labs: Laboratory Results - last 24 hr 09/18/24 09/18/24 09/18/24 03:42 05:23 07:09 WBC RBC Hgb Hct MCV MCH MCHC RDW Plt Count MPV % Immature Plt Fraction PT 17.2 H INR 1.4 APTT 31.8 Puncture Site ABG pH ABG pCO2 ABG pO2 ABG PO2/FiO2 Ratio ABG HCO3 ABG O2 Saturation ABG O2 Content ABG Base Excess A-a Gradient Oxyhemoglobin Carboxyhemoglobin Methemoglobin Reduced Hemoglobin Total Hemoglobin O2 Delivery Device O2 Liters/Min FiO2 Expiratory Pressure Inspiratory Pressure Sodium Potassium Chloride Carbon Dioxide Anion Gap BUN Creatinine Estim Creat Clear Calc Estimated GFR Glucose Calcium Phosphorus Magnesium Iron TIBC % Saturation Ferritin Total Bilirubin AST ALT Alkaline Phosphatase Troponin I Total Protein Albumin Carcinoembryonic Ag Nasal MRSA (PCR) Not detected Blood Type A Negative Antibody Screen Negative Crossmatch See Detail 09/18/24 09/18/24 09/18/24 07:23 09:10 10:38 WBC 6.9 RBC 3.08 L Hgb 6.7 L* Hct 23.7 L MCV 76.9 L MCH 21.8 L MCHC 28.3 L RDW 20.6 H Plt Count 68 L MPV TNP % Immature Plt Fraction 9.8 PT INR APTT Puncture Site Right radial Right radial ABG pH 7.281 L* 7.406 ABG pCO2 65.5 H* 46.9 H ABG pO2 114.7 H 69.0 L ABG PO2/FiO2 Ratio 2.87 2.76 ABG HCO3 30.2 H 28.8 H ABG O2 Saturation 97.5 93.8 L ABG O2 Content 10.4 L 10.8 L ABG Base Excess 2.8 3.6 A-a Gradient 95.2 53.6 Oxyhemoglobin 95.5 92.0 Carboxyhemoglobin Methemoglobin Reduced Hemoglobin Total Hemoglobin 7.6 L* 8.3 L O2 Delivery Device Bipap Bipap O2 Liters/Min Not Reportable Not Reportable FiO2 50 25 Expiratory Pressure 6 6 Inspiratory Pressure 12 16 Sodium Potassium Chloride Carbon Dioxide Anion Gap BUN Creatinine Estim Creat Clear Calc Estimated GFR Glucose Calcium Phosphorus Magnesium Iron 74 TIBC 349 % Saturation 21 Ferritin 14.30 Total Bilirubin AST ALT Alkaline Phosphatase Troponin I 0.872 H* D Total Protein Albumin Carcinoembryonic Ag 240.0 H Nasal MRSA (PCR) Not detected Blood Type Antibody Screen Crossmatch 09/18/24 09/18/24 09/18/24 18:28 18:28 18:28 WBC 7.0 RBC 3.56 L Hgb 8.2 L 8.2 L Hct 27.7 L 28.1 L MCV 77.8 L MCH 23.0 L D MCHC 29.6 L RDW 20.2 H Plt Count 68 L MPV TNP % Immature Plt Fraction 11.6 H PT INR APTT Puncture Site ABG pH ABG pCO2 ABG pO2 ABG PO2/FiO2 Ratio ABG HCO3 ABG O2 Saturation ABG O2 Content ABG Base Excess A-a Gradient Oxyhemoglobin Carboxyhemoglobin Methemoglobin Reduced Hemoglobin Total Hemoglobin O2 Delivery Device O2 Liters/Min FiO2 Expiratory Pressure Inspiratory Pressure Sodium Potassium Chloride Carbon Dioxide Anion Gap BUN Creatinine Estim Creat Clear Calc Estimated GFR Glucose Calcium Phosphorus Magnesium Iron TIBC % Saturation Ferritin Total Bilirubin AST ALT Alkaline Phosphatase Troponin I 1.180 H* D Total Protein Albumin Carcinoembryonic Ag Nasal MRSA (PCR) Blood Type Antibody Screen Crossmatch 09/19/24 09/19/24 09/19/24 01:34 04:02 04:45 WBC 6.2 5.8 RBC 3.31 L 3.38 L Hgb 7.6 L 7.7 L Hct 25.7 L 26.7 L MCV 77.6 L 79.0 L MCH 23.0 L 22.8 L MCHC 29.6 L 28.8 L RDW 20.3 H 20.4 H Plt Count 65 L 64 L MPV TNP TNP % Immature Plt Fraction 11.3 H 10.4 PT INR APTT Puncture Site Left radial ABG pH 7.424 ABG pCO2 44.0 ABG pO2 67.7 L ABG PO2/FiO2 Ratio 2.26 ABG HCO3 28.2 H ABG O2 Saturation 93.8 L ABG O2 Content 11.4 L ABG Base Excess 3.4 A-a Gradient 94.5 Oxyhemoglobin 91.2 Carboxyhemoglobin 1.5 Methemoglobin 0.2 Reduced Hemoglobin 7.1 H Total Hemoglobin 8.8 L O2 Delivery Device Bipap O2 Liters/Min Not Reportable FiO2 30 Expiratory Pressure 6 Inspiratory Pressure 14 Sodium 140 Potassium 3.1 L Chloride 108 H Carbon Dioxide 30 Anion Gap 2 L BUN 18 Creatinine 1.14 Estim Creat Clear Calc 63 Estimated GFR > 60 Glucose 80 Calcium 7.7 L Phosphorus 3.4 Magnesium 2.2 Iron TIBC % Saturation Ferritin Total Bilirubin 1.4 H AST 77 H ALT 23 Alkaline Phosphatase 109 Troponin I Total Protein 5.5 L Albumin 2.4 L Carcinoembryonic Ag Nasal MRSA (PCR) Blood Type Antibody Screen Crossmatch
[2024-09-19] MEDS: PANTOPRAZOLE SODIUM IV 40 MG VIAL IV PUSH ×2 (08:16→20:42)
[2024-09-19] MEDS: FLUTICASONE/UMECLIDIN/VILANTER 100-62.5-25 MCG ELLIPTA 1 PUFF INHALATION (08:25)
--- NOTE | 2024-09-19 08:30 | P.CDI_ITS ---
CDI Query Clarification Request 1)Please clarify type of encephalopathy, if known: ? Metabolic ? Toxic ? Hepatic ? Hypertensive ? Anoxic/Hypoxic ? Uremic ? Wern[place]ke ? Other ? Unknown 2) Please review the clinical information below and clarify the respiratory diagnosis the patient is being treated for a/c respiratory failure Hypoxia or hypoxemia without respiratory failure Respiratory distress without respiratory failure Acute respiratory failure with hypoxia Acute respiratory failure with hypercapnia Acute respiratory failure with hypoxia and hypercapnia Acute on chronic respiratory failure with hypoxia Acute on chronic respiratory failure with hypercapnia Acute on chronic respiratory failure with hypoxia and hypercapnia Acute respiratory distress syndrome (ARDS) Chronic respiratory failure with hypoxia Chronic respiratory failure with hypercapnia Chronic respiratory failure with hypoxia and hypercapnia Other explanation clinical findings, please specify Unable to determine 3) Please clarify the status of the anemia, if known. Anemia has been documented, please specify type of anemia if known: * Acute blood loss anemia * Chronic blood loss anemia * Anemia of chronic disease (CKD,neoplasm, other) * Aplastic anemia * Dilutional anemia * Iron Deficiency anemia * Pernicious anemia * Nutritional anemia (e.g., scorbutic anemia) * Other anemia * Unknown/unable to determine 4) Please clarify if NSTEMI been ruled in or ruled out The medical chart reflects the following: (4) Acute and chronic respiratory failure: Code(s): J96.20 - Acute and chronic respiratory failure, unspecified whether with hypoxia or hypercapnia Status: Acute Assessment and Plan: Acute on chronic respiratory failure likely multifactorial secondary to encephalopathy, obesity hypoventilation syndrome, obstructive sleep apnea, atelectasis ? Chronic diaphragmatic weakness with elevated hemidiaphragm ABG shows hypercarbia and respiratory acidosis. Patient was placed on BiPAP in the ER Repeat ABG was worse and I have increased IPAP to 16 and decrease FiO2 25 % Will repeat ABG. If it continues to worsen patient will need intubation. Patient is awake and enough that he does not need intubation for his mental status at this time. CT scan reviewed Continue Bronchodilators and trelegy at home dose Plan chronic anemia/ secondary to GI bleed and colon adenocarcinoma received 4 units of blood Monitor H&H RBC scan neg GI and surgery on board colonoscopy when patient stable colon adenocarcinoma with metastasis CEA elevated, CA125, AFP pending colonoscopy when patient stable respiratory acidosis BIpap Continue to monitor Acute encephalopathy Co2 retention, Sepsis CT head neg for acute abnormality On BIPAP Follow culture result Continue IVAbx septic shock IV Abx follow culture Levophed NSTEMI demand ischemia in setting of Sepsis monitor hypokalemia replete as needed (7) Acute and chronic respiratory failure: Code(s): J96.20 - Acute and chronic respiratory failure, unspecified whether with hypoxia or hypercapnia Status: Acute Assessment and Plan: * Requiring positive pressure oxygenation with Vapotherm. Increases risks for any anesthesia or procedures, including colonoscopy (1) Anemia: Code(s): D64.9 - Anemia, unspecified Status: Acute Assessment and Plan: Patient was recently diagnosed with anemia as an outpatient. He was getting iron infusions and was also being evaluated for lower GI bleed as he had a CT scan ordered. Patient initially was unable to get CT scan because he was unable to lay flat. 09/18: CT scan shows finding consists of colon cancer. I suspect patient may be having lower GI bleed -patient has received a total of 4 units of packed RBCs -hemoglobin stable this morning 7.7 -will transfuse 1 unit of platelets -will obtain DIC panel -continue to monitor hemoglobin level -Hold anticoagulation -IV PPI q.12 hours nuclear medicine GI bleed scan 09/18: FINDINGS: No pattern of abnormal activity is seen in the abdomen or pelvis to suggest gastrointestinal hemorrhage. IMPRESSION: 1. No scintigraphic evidence for active gastrointestinal bleeding CXR 09/19Impression: Possible small to moderate layering right pleural effusion with right basilar atelectasis versus pneumonia. Hazy left basilar and left perihilar airspace disease could reflect pulmonary edema/atelectasis versus pneumonia. Stable elevation left hemidiaphragm. 09/18 electrocardiogram SINUS RHYTHM BORDERLINE AV CONDUCTION DELAY EARLY PRECORDIAL R/S TRANSITION BORDERLINE ST-T WAVE ABNORMALITY- HIGH LATERAL LEADS BASELINE WANDER- I, II, III, AVR, AVF, V1 BORDERLINE ECG Compared to ECG 09/18/2024 03:31:13 HEART RATE HAS DECREASED Hgb 09/18: 6.6, 6.2, 6.7, 8.2, Hgb 6/24: 7.6, 7.7 <Inessa Rader RN - Last Filed: 09/19/24 10:24> Provider Comments metabolic Acute on chronic respiratory failure with hypoxia and hypercapnia <Beba Orona MD - Last Filed: 09/19/24 15:59>
[2024-09-19] MEDS: FUROSEMIDE INJ 40 MG/4 ML VIAL IV PUSH (08:38)
--- NOTE | 2024-09-19 09:30 | P.PNINT_ITS ---
Progress Note: A&P Assessment and Plan (1) Anemia: Code(s): D64.9 - Anemia, unspecified Status: Acute Assessment and Plan: Patient was recently diagnosed with anemia as an outpatient. He was getting iron infusions and was also being evaluated for lower GI bleed as he had a CT scan ordered. Patient initially was unable to get CT scan because he was unable to lay flat. 09/18: CT scan shows finding consists of colon cancer. I suspect patient may be having lower GI bleed -patient has received a total of 4 units of packed RBCs -hemoglobin stable this morning 7.7 -will transfuse 1 unit of platelets -will obtain DIC panel -continue to monitor hemoglobin level -Hold anticoagulation -IV PPI q.12 hours -appreciated GI evaluation and recommendations (2) Sepsis: Code(s): A41.9 - Sepsis, unspecified organism Status: Acute Assessment and Plan: Sepsis secondary to UTI IV fluid bolus followed by IV fluid maintain IV Zosyn (09/18) 09/18: Blood cultures negative x2 show for 09/18: Urine culture pending -not requiring any pressors (3) ALBERT (obstructive sleep apnea): Code(s): G47.33 - Obstructive sleep apnea (adult) (pediatric) Status: Acute Assessment and Plan: Currently on BiPAP (4) Acute and chronic respiratory failure: Code(s): J96.20 - Acute and chronic respiratory failure, unspecified whether with hypoxia or hypercapnia Status: Acute Assessment and Plan: Acute on chronic respiratory failure likely multifactorial secondary to encephalopathy, obesity hypoventilation syndrome, obstructive sleep apnea, atelectasis ? Chronic diaphragmatic weakness with elevated hemidiaphragm ABG shows hypercarbia and respiratory acidosis. Patient was placed on BiPAP in the ER, Repeat ABG was worse BiPAP settings were shows changed ABGs this morning much improved Patient is more awake and alert this morning, placed him on Vapotherm, on 35 L flow rate and 60% FiO2 with adequate O2 sats CT scan reviewed Continue Bronchodilators and trelegy at home dose 09/19: Chest x-ray shows small to moderate layering pleural effusions with right basilar atelectasis versus pneumonia, [place] left basilar and left perihilar airspace disease could reflect pulmonary edema/atelectasis versus pneumonia, stable elevation of left hemidiaphragm -will start to diurese patient -restart home Ellipta trelegy (5) Colon cancer: Code(s): C18.9 - Malignant neoplasm of colon, unspecified Status: Acute Assessment and Plan: CT scan Circumferential wall thickening of ascending colon with soft tissue infiltration into the adjacent pericolonic fat, highly suspicious for colonic adenocarcinoma. Consider colonoscopy for further assessment and tissue sampling. Cirrhotic liver. 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 Potential alternative consideration. Enlarged gastrohepatic lymph node, suspicious for metastatic lymph node -appreciate GI evaluation and recommendations, since patient cannot lay flat, colonoscopy will not be possible at this time -continue PPI -may require oncology consultation (6) Atelectasis: Code(s): J98.11 - Atelectasis Status: Acute Assessment and Plan: Continue Vapotherm (7) Obesity hypoventilation syndrome: Code(s): E66.2 - Morbid (severe) obesity with alveolar hypoventilation Status: Acute Assessment and Plan: Continue Vapotherm (8) Elevated serum creatinine: Code(s): R79.89 - Other specified abnormal findings of blood chemistry Status: Acute Assessment and Plan: Baseline creatinine unknown. Patient presented with creatinine 1.33. Patient is getting IV fluids sepsis. Monitor urine output electrolytes and creatinine. CT scan does not show any stones or obstruction He does have a large prostate and has a Still catheter now Monitor urine output electrolytes and creatinine -creatinine improving, 1.14 this morning (9) Elevated troponin: Code(s): R79.89 - Other specified abnormal findings of blood chemistry Status: Acute Assessment and Plan: Presented with elevated troponin. EKG reviewed. No history of chest pain. Likely stress mediated troponin leak secondary to respiratory failure, anemia and sepsis At this time he is not a candidate for any antiplatelet or anticoagulation due to anemia and thrombocytopenia and finding suggestive of colon cancer 09/18/2024: Echocardiogram Summary 1. Left ventricular chamber dimension is normal. 2. Left ventricular systolic function is normal, estimated at 60-65. 3. There is mildly increased left ventricular wall thickness. 4. The left ventricular diastolic function is grade I diastolic dysfunction. 5. Right ventricular systolic function is normal. 6. Right atrial chamber dimension is mildly enlarged. 7. No significant valvular disease. (10) Lower extremity edema: Code(s): R60.0 - Localized edema Status: Acute Assessment and Plan: Appears to be chronic bilateral lower extremity edema. Likely secondary to cor pulmonale. Plan DVT prophylaxis -SCD Stress ulcer prophylaxis -PPI IV q.12 hours Nutrition -clear liquid diet Code Status: DNR . Total Critical Care Time: 43 minute 09/19: Discussed at length with and daughter and updated them with patient's condition and plan of care. I also discussed with the the recommendations of the securities and real estate director and little able to perform colonoscopy given his respiratory compromise. The will be talking among themselves and, with the plan off either doing aggressive care or take him home on hospice. They changed the code status to DNR Due to a high probability of clinically significant, life threatening deterioration, the patient required my highest level of preparedness to intervene emergently and I personally spent this critical care time directly and personally managing the patient. This critical care time included obtaining a history; examining the patient; pulse oximetry; ordering and review of studies; arranging urgent treatment with development of a management plan; evaluation of patient's response to treatment; frequent reassessment; and discussions with other providers. It was exclusive of separately billable procedures and treating other patients and teaching time. Please see Assessment and Plan section and the rest of the note for further information on patient assessment and treatment Subjective Date/time seen: 09/19/24 09:30 Interval history: Reason for consult: Anemia, sepsis, UTI, acute on chronic respiratory failure requiring BiPAP, malignant neoplasm of the colon, acute kidney injury Patient seen and examined the ICU, remains off BiPAP, on NC with complains of SOB. I have asked the RT to place pt on Vapotherm. Patient is hard of hearing but able to answer questions. S nausea vomiting, no abdominal pain, no chest pain urine output has been adequate, afebrile, hemodynamically stable Review of Systems Review of Systems: All systems reviewed & are unremarkable except as noted in HPI and below (HPI) Exam Narrative: General: Morbidly obese male , hard of hearing, alert and awake HEENT: Pupils equal and reactive, sclera is clear Lungs/Chest: Decreased breath sounds at bases bilaterally, no significant wheezing heard, rales at bases Cardiac: Sinus bradycardia S1-S2 is normal Abdomen: Normal bowel sounds. Morbidly obese. Soft. NT. ND. Extremities: Bilateral pitting edema present, left leg shows chronic venous stasis changes with ulcer that has healed, palpable pedal pulses : Still in place Neurologic: Awake, alert, follows simple commands in all extremity and answers to questions appropriate Skin: No Rash Objective Data Vital Signs Vital Signs: Vital Signs - 24 hr 09/18/24 09:43 09/18/24 09:52 09/18/24 10:00 Temperature Pulse Rate 84 71 66 Respiratory Rate 30 H 20 Blood Pressure Pulse Oximetry 95 92 Oxygen Delivery BiPAP BiPAP Oxygen Flow Rate Fraction of Inspired Oxygen 09/18/24 10:00 09/18/24 10:15 09/18/24 10:55 Temperature 96.6 F L Pulse Rate 64 63 61 Respiratory Rate 19 19 Blood Pressure 89/47 L 79/42 L Pulse Oximetry 92 92 Oxygen Delivery BiPAP Oxygen Flow Rate Fraction of Inspired Oxygen 09/18/24 11:00 09/18/24 11:16 09/18/24 11:42 Temperature 96.4 F L Pulse Rate 60 59 L 63 Respiratory Rate 24 H Blood Pressure 81/49 L 89/60 L 90/58 L Pulse Oximetry 96 Oxygen Delivery Oxygen Flow Rate Fraction of Inspired Oxygen 09/18/24 11:58 09/18/24 12:00 09/18/24 12:00 Temperature 96.5 F L 96.7 F L Pulse Rate 69 60 58 L Respiratory Rate 30 H 27 H Blood Pressure 101/74 101/60 101/60 Pulse Oximetry 92 90 Oxygen Delivery Oxygen Flow Rate Fraction of Inspired Oxygen 09/18/24 12:00 09/18/24 12:00 09/18/24 12:55 Temperature Pulse Rate 60 61 86 Respiratory Rate 18 21 H Blood Pressure Pulse Oximetry 93 94 Oxygen Delivery BiPAP BiPAP Oxygen Flow Rate Fraction of Inspired Oxygen 09/18/24 12:58 09/18/24 13:45 09/18/24 14:00 Temperature 97.1 F L 97.3 F L Pulse Rate 60 59 L 60 Respiratory Rate 22 H 16 Blood Pressure 93/63 L 92/61 L 104/62 Pulse Oximetry 96 94 Oxygen Delivery Oxygen Flow Rate Fraction of Inspired Oxygen 09/18/24 14:00 09/18/24 14:00 09/18/24 14:15 Temperature 97.4 F L Pulse Rate 60 60 60 Respiratory Rate 16 Blood Pressure 104/62 103/60 Pulse Oximetry 94 Oxygen Delivery Oxygen Flow Rate Fraction of Inspired Oxygen 09/18/24 14:30 09/18/24 15:16 09/18/24 15:32 Temperature 97.6 F 97.6 F Pulse Rate 62 56 L 57 L Respiratory Rate 20 19 Blood Pressure 101/61 103/64 97/62 L Pulse Oximetry 96 95 Oxygen Delivery Oxygen Flow Rate Fraction of Inspired Oxygen 09/18/24 16:00 09/18/24 16:00 09/18/24 16:00 Temperature 97.8 F Pulse Rate 56 L 63 55 L Respiratory Rate 19 Blood Pressure 95/62 L 106/67 Pulse Oximetry 90 Oxygen Delivery Oxygen Flow Rate Fraction of Inspired Oxygen 09/18/24 16:29 09/18/24 16:30 09/18/24 16:32 Temperature 97.8 F Pulse Rate 63 80 65 Respiratory Rate 18 20 20 Blood Pressure 106/67 Pulse Oximetry 92 92 92 Oxygen Delivery Nasal Cannula Nasal Cannula Oxygen Flow Rate 4 4 Fraction of Inspired Oxygen 09/18/24 16:38 09/18/24 16:59 09/18/24 17:30 Temperature Pulse Rate 63 61 59 L Respiratory Rate Blood Pressure 106/67 109/68 96/53 L Pulse Oximetry Oxygen Delivery Oxygen Flow Rate Fraction of Inspired Oxygen 09/18/24 18:00 09/18/24 18:00 09/18/24 18:03 Temperature 97.5 F L Pulse Rate 65 65 70 Respiratory Rate 18 Blood Pressure 96/58 L 96/58 L Pulse Oximetry 92 Oxygen Delivery Oxygen Flow Rate Fraction of Inspired Oxygen 09/18/24 19:15 09/18/24 19:45 09/18/24 20:00 Temperature 97.5 F L Pulse Rate 56 L 55 L Respiratory Rate 23 H 18 Blood Pressure 94/68 L Pulse Oximetry 94 94 95 Oxygen Delivery Nasal Cannula BiPAP Oxygen Flow Rate 4 Fraction of Inspired Oxygen 09/18/24 20:00 09/18/24 20:00 09/18/24 20:00 Temperature Pulse Rate 54 L 55 L Respiratory Rate Blood Pressure 94/68 L Pulse Oximetry Oxygen Delivery BiPAP Oxygen Flow Rate Fraction of Inspired Oxygen 30 09/18/24 22:00 09/18/24 22:00 09/18/24 22:00 Temperature 97.5 F L Pulse Rate 57 L 57 L 57 L Respiratory Rate 18 Blood Pressure 91/59 L 91/59 L Pulse Oximetry 94 Oxygen Delivery Oxygen Flow Rate Fraction of Inspired Oxygen 09/19/24 00:00 09/19/24 00:00 09/19/24 00:00 Temperature Pulse Rate 59 L 59 L Respiratory Rate Blood Pressure 96/59 L Pulse Oximetry Oxygen Delivery BiPAP Oxygen Flow Rate Fraction of Inspired Oxygen 30 09/19/24 00:00 09/19/24 01:00 09/19/24 02:00 Temperature 97.2 F L Pulse Rate 59 L 58 L 56 L Respiratory Rate 18 30 H Blood Pressure 96/59 L Pulse Oximetry 94 94 Oxygen Delivery BiPAP Oxygen Flow Rate Fraction of Inspired Oxygen 09/19/24 02:00 09/19/24 04:00 09/19/24 04:00 Temperature 97.1 F L Pulse Rate 56 L 54 L Respiratory Rate 18 Blood Pressure 98/59 L 92/53 L Pulse Oximetry 99 Oxygen Delivery BiPAP Oxygen Flow Rate Fraction of Inspired Oxygen 30 09/19/24 04:00 09/19/24 04:00 09/19/24 06:00 Temperature 97.0 F L Pulse Rate 54 L 54 L 55 L Respiratory Rate 18 Blood Pressure 92/53 L Pulse Oximetry 91 Oxygen Delivery Oxygen Flow Rate Fraction of Inspired Oxygen 09/19/24 06:00 09/19/24 06:00 09/19/24 08:00 Temperature 97.3 F L 97.5 F L Pulse Rate 55 L 55 L 54 L Respiratory Rate 18 22 H Blood Pressure 97/59 L 97/59 L 99/59 L Pulse Oximetry 92 93 Oxygen Delivery Oxygen Flow Rate Fraction of Inspired Oxygen 09/19/24 08:00 09/19/24 08:40 09/19/24 08:41 Temperature Pulse Rate 54 L 60 Respiratory Rate 22 H 18 Blood Pressure Pulse Oximetry 93 96 95 Oxygen Delivery BiPAP High Flow Therapy with Na High Flow Therapy with Na Oxygen Flow Rate 25 25 Fraction of Inspired Oxygen 30 60 60 09/19/24 08:43 Temperature Pulse Rate 60 Respiratory Rate 20 Blood Pressure Pulse Oximetry Oxygen Delivery Oxygen Flow Rate Fraction of Inspired Oxygen Intake/Output Intake/Output: Intake & Output 09/16/24 09/17/24 09/18/24 09/19/24 23:59 23:59 23:59 23:59 Intake Total 4206.6 1395 Output Total 1430 925 Balance 2776.6 470 Meds/Results Medications: Active Medications Generic Name Dose Route Start Last Admin Trade Name Freq PRN Reason Stop Dose Admin Acetaminophen 650 mg 09/18/24 07:16 Acetaminophen 650 Mg Suppository RECTAL Q6H PRN Mild Pain (1-3) or Fever Albuterol/Ipratropium 3 ml 09/18/24 08:49 Ipratropium 0.5 Mg/Albuterol Sulfate 2.5 Mg Ampul.Neb 3 Ml INHALATION Q6HRT PRN Wheezing Fluticasone/Umeclidinium/Vilanterol 1 puff 09/18/24 10:00 09/19/24 08:25 Fluticasone/Umeclidin/Vilanter 100-62.5-25 Mcg Ellipta INHALATION 1 puff DAILYRT RICARDO Administration Piperacillin/Tazobactam/Dextrose 3.375 gm in 50 mls @ 100 mls/hr 09/18/24 12:00 09/19/24 06:03 Zosyn 3.375 Gm/Ns 50 Ml IVPB Infused Q6H RICARDO Infusion Norepinephrine Bitartrate 8 mg in 250 mls @ 0 mls/hr 09/18/24 10:55 09/19/24 06:00 Levophed 8 Mg/D5w 250 Ml IV CONT 0 mcg/min .Q0M RICARDO 0 mls/hr Titration Protocol 0 MCG/MIN Sodium Chloride 250 mls @ 30 mls/hr 09/19/24 07:32 Normal Saline Iv IV CONT 09/19/24 15:51 .Q8H20M STA Potassium Chloride 100 mls @ 25 mls/hr 09/19/24 07:50 Kcl 40 Meq/Water 100 Ml IVPB 09/19/24 11:49 ONCE ONE Morphine Sulfate 2 mg 09/18/24 11:52 09/18/24 11:55 Morphine Sulfate (*Crx) 2 Mg/Ml Inj IV PUSH 2 mg Q2H PRN Administration Pain Rated 7-10 Ondansetron HCl 4 mg 09/18/24 07:16 Ondansetron Inj 4 Mg/2 Ml Vial IV PUSH Q4H PRN Nausea Pantoprazole Sodium 40 mg 09/18/24 09:00 09/19/24 08:16 Pantoprazole Sodium Iv 40 Mg Vial IV PUSH 40 mg Q12HR RICARDO Administration Sodium Chloride 10 ml 09/18/24 14:00 09/19/24 03:58 Central Line Flush IV PUSH 10 ml Q8HR RICARDO Administration Sodium Chloride 10 ml 09/18/24 10:52 Central Line Flush IV PUSH PRN PRN with TPN bag changes Sodium Chloride 20 ml 09/18/24 10:52 Central Line Flush IV PUSH PRN PRN after blood draws Radiology Results: ITS Impressions Chest/Abdomen/Pelvis CTA 09/18/24 06:38 Impression: Very limited evaluation for pulmonary embolus due to timing of the contrast bolus. No definite large central pulmonary embolus. Circumferential wall thickening of ascending colon with soft tissue infiltration into the adjacent pericolonic fat, highly suspicious for colonic adenocarcinoma. Consider colonoscopy for further assessment and tissue sampling. Cirrhotic liver. 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 Potential alternative consideration. Enlarged gastrohepatic lymph node, suspicious for metastatic lymph node. Bibasilar pulmonary atelectasis. Head CT 09/18/24 07:12 Impression: No significant abnormality seen. GI Bleed Scan Nuclear Medicine 09/18/24 14:47 IMPRESSION: 1. No scintigraphic evidence for active gastrointestinal bleeding. Chest X-Ray 09/19/24 08:01 Impression: Possible small to moderate layering right pleural effusion with right basilar atelectasis versus pneumonia. Hazy left basilar and left perihilar airspace disease could reflect pulmonary edema/atelectasis versus pneumonia. Stable elevation left hemidiaphragm. Labs Labs: Laboratory Results - last 24 hr 09/18/24 09/18/24 09/18/24 05:23 10:38 18:28 WBC 6.9 7.0 RBC 3.08 L 3.56 L Hgb 6.7 L* 8.2 L Hct 23.7 L MCV 76.9 L MCH 21.8 L MCHC 28.3 L RDW 20.6 H Plt Count 68 L MPV TNP % Immature Plt Fraction 9.8 Puncture Site ABG pH ABG pCO2 ABG pO2 ABG PO2/FiO2 Ratio ABG HCO3 ABG O2 Saturation ABG O2 Content ABG Base Excess A-a Gradient Oxyhemoglobin Carboxyhemoglobin Methemoglobin Reduced Hemoglobin Total Hemoglobin O2 Delivery Device O2 Liters/Min FiO2 Expiratory Pressure Inspiratory Pressure Sodium Potassium Chloride Carbon Dioxide Anion Gap BUN Creatinine Estim Creat Clear Calc Estimated GFR Glucose Calcium Phosphorus Magnesium Iron 74 TIBC 349 % Saturation 21 Ferritin 14.30 Total Bilirubin AST ALT Alkaline Phosphatase Troponin I 0.872 H* D Total Protein Albumin Carcinoembryonic Ag 240.0 H Nasal MRSA (PCR) Not detected Blood Type A Negative Antibody Screen Negative Crossmatch See Detail 09/18/24 09/18/24 09/19/24 18:28 18:28 01:34 WBC 6.2 RBC 3.31 L Hgb 8.2 L 7.6 L Hct 27.7 L 28.1 L 25.7 L MCV 77.8 L 77.6 L MCH 23.0 L D 23.0 L MCHC 29.6 L 29.6 L RDW 20.2 H 20.3 H Plt Count 68 L 65 L MPV TNP TNP % Immature Plt Fraction 11.6 H 11.3 H Puncture Site ABG pH ABG pCO2 ABG pO2 ABG PO2/FiO2 Ratio ABG HCO3 ABG O2 Saturation ABG O2 Content ABG Base Excess A-a Gradient Oxyhemoglobin Carboxyhemoglobin Methemoglobin Reduced Hemoglobin Total Hemoglobin O2 Delivery Device O2 Liters/Min FiO2 Expiratory Pressure Inspiratory Pressure Sodium Potassium Chloride Carbon Dioxide Anion Gap BUN Creatinine Estim Creat Clear Calc Estimated GFR Glucose Calcium Phosphorus Magnesium Iron TIBC % Saturation Ferritin Total Bilirubin AST ALT Alkaline Phosphatase Troponin I 1.180 H* D Total Protein Albumin Carcinoembryonic Ag Nasal MRSA (PCR) Blood Type Antibody Screen Crossmatch 09/19/24 09/19/24 04:02 04:45 WBC 5.8 RBC 3.38 L Hgb 7.7 L Hct 26.7 L MCV 79.0 L MCH 22.8 L MCHC 28.8 L RDW 20.4 H Plt Count 64 L MPV TNP % Immature Plt Fraction 10.4 Puncture Site Left radial ABG pH 7.424 ABG pCO2 44.0 ABG pO2 67.7 L ABG PO2/FiO2 Ratio 2.26 ABG HCO3 28.2 H ABG O2 Saturation 93.8 L ABG O2 Content 11.4 L ABG Base Excess 3.4 A-a Gradient 94.5 Oxyhemoglobin 91.2 Carboxyhemoglobin 1.5 Methemoglobin 0.2 Reduced Hemoglobin 7.1 H Total Hemoglobin 8.8 L O2 Delivery Device Bipap O2 Liters/Min Not Reportable FiO2 30 Expiratory Pressure 6 Inspiratory Pressure 14 Sodium 140 Potassium 3.1 L Chloride 108 H Carbon Dioxide 30 Anion Gap 2 L BUN 18 Creatinine 1.14 Estim Creat Clear Calc 63 Estimated GFR > 60 Glucose 80 Calcium 7.7 L Phosphorus 3.4 Magnesium 2.2 Iron TIBC % Saturation Ferritin Total Bilirubin 1.4 H AST 77 H ALT 23 Alkaline Phosphatase 109 Troponin I Total Protein 5.5 L Albumin 2.4 L Carcinoembryonic Ag Nasal MRSA (PCR) Blood Type Antibody Screen Crossmatch Quality VTE Prophylaxis VTE prophylaxis: mechanical ordered
[2024-09-19] MEDS: KCL 40 MEQ/WATER 100 ML 100 ML 25 ML IVPB (09:51)
--- NOTE | 2024-09-19 09:53 | P.PNGS_ITS ---
Progress Note: A&P Assessment and Plan (1) Colonic mass: Code(s): K63.89 - Other specified diseases of intestine Status: Acute Assessment and Plan: * Ascending colon mass with likely metastatic liver lesions, c/w presumed metastatic colon cancer. CEA significantly elevated. Patient is not currently a candidate for colonoscopy due to his respiratory status. * No signs of active bleeding on tagged RBC scan. * He is not having any abdominal pain and his abdominal exam is benign. He has an overall poor prognosis and is a poor surgical candidate given his advanced age, respiratory status, and multiple comorbidities including liver cirrhosis and portal HTN. Surgical management would only be indicated for perforation or high-grade obstruction, which neither are evident at this time. * GI also following and recommending family discussion in regards to his care moving forward. Will continue to follow along. (2) Cirrhosis: Qualifiers: Hepatic cirrhosis type: unspecified hepatic cirrhosis Ascites presence: without ascites Qualified Code(s): K74.60 - Unspecified cirrhosis of liver Code(s): K74.60 - Unspecified cirrhosis of liver Status: Acute (3) Portal hypertension: Code(s): K76.6 - Portal hypertension Status: Acute (4) Microcytic anemia: Code(s): D50.9 - Iron deficiency anemia, unspecified Status: Acute Assessment and Plan: * Etiology likely multifactorial with probable metastatic colon cancer. Hgb stable this morning at 7.7. Transfuse as needed. No melena or hematochezia since admission. Tagged RBC scan negative. Continue to trend labs, GI following. (5) Sepsis: Code(s): A41.9 - Sepsis, unspecified organism Status: Acute Assessment and Plan: * Rogers to be secondary to UTI. No longer on vasopressors. Continue IV abx and management per primary service/[employer]. (6) Thrombocytopenia: Code(s): D69.6 - Thrombocytopenia, unspecified Status: Acute Assessment and Plan: * Platelets 60,000, receiving transfusion today (7) Acute and chronic respiratory failure: Code(s): J96.20 - Acute and chronic respiratory failure, unspecified whether with hypoxia or hypercapnia Status: Acute Assessment and Plan: * Requiring positive pressure oxygenation with Vapotherm. Increases risks for any anesthesia or procedures, including colonoscopy Plan I have discussed the patient's case and plan of care with Dr. Jeronimo. Subjective Subjective Date/Time Seen: 09/19/24 09:53 Patient reports: no flatus, no bowel movement and afebrile Interval history: Patient in the ICU on 60% FiO2 on Vapotherm. He is alert and answers questions appropriately. His and daughter at the bedside. He denies any abdominal pain, nausea, or vomiting. He is not passing any flatus or had a bowel movement since admission yet. Exam Const: General: ill appearing Orientation/consciousness: oriented to person and oriented to place GI: Inspection: Pannus present and obesity GI Palp: Yes Soft to palpation, No Tenderness to palpation present (GI), No Guarding due to palpation present (GI) and No Rebound tenderness present Auscultation: normal bowel sounds Objective Data Vital Signs Vital Signs: Vital Signs - 24 hr 09/18/24 10:00 09/18/24 10:00 09/18/24 10:15 Temperature 96.6 F L Pulse Rate 66 64 63 Respiratory Rate 19 19 Blood Pressure 89/47 L Pulse Oximetry 92 92 Oxygen Delivery BiPAP Oxygen Flow Rate Fraction of Inspired Oxygen 09/18/24 10:55 09/18/24 11:00 09/18/24 11:16 Temperature Pulse Rate 61 60 59 L Respiratory Rate Blood Pressure 79/42 L 81/49 L 89/60 L Pulse Oximetry Oxygen Delivery Oxygen Flow Rate Fraction of Inspired Oxygen 09/18/24 11:42 09/18/24 11:58 09/18/24 12:00 Temperature 96.4 F L 96.5 F L 96.7 F L Pulse Rate 63 69 60 Respiratory Rate 24 H 30 H 27 H Blood Pressure 90/58 L 101/74 101/60 Pulse Oximetry 96 92 90 Oxygen Delivery Oxygen Flow Rate Fraction of Inspired Oxygen 09/18/24 12:00 09/18/24 12:00 09/18/24 12:00 Temperature Pulse Rate 58 L 60 61 Respiratory Rate 18 Blood Pressure 101/60 Pulse Oximetry 93 Oxygen Delivery BiPAP Oxygen Flow Rate Fraction of Inspired Oxygen 09/18/24 12:55 09/18/24 12:58 09/18/24 13:45 Temperature 97.1 F L 97.3 F L Pulse Rate 86 60 59 L Respiratory Rate 21 H 22 H 16 Blood Pressure 93/63 L 92/61 L Pulse Oximetry 94 96 94 Oxygen Delivery BiPAP Oxygen Flow Rate Fraction of Inspired Oxygen 09/18/24 14:00 09/18/24 14:00 09/18/24 14:00 Temperature 97.4 F L Pulse Rate 60 60 60 Respiratory Rate 16 Blood Pressure 104/62 104/62 Pulse Oximetry 94 Oxygen Delivery Oxygen Flow Rate Fraction of Inspired Oxygen 09/18/24 14:15 09/18/24 14:30 09/18/24 15:16 Temperature 97.6 F Pulse Rate 60 62 56 L Respiratory Rate 20 Blood Pressure 103/60 101/61 103/64 Pulse Oximetry 96 Oxygen Delivery Oxygen Flow Rate Fraction of Inspired Oxygen 09/18/24 15:32 09/18/24 16:00 09/18/24 16:00 Temperature 97.6 F 97.8 F Pulse Rate 57 L 56 L 63 Respiratory Rate 19 19 Blood Pressure 97/62 L 95/62 L 106/67 Pulse Oximetry 95 90 Oxygen Delivery Oxygen Flow Rate Fraction of Inspired Oxygen 09/18/24 16:00 09/18/24 16:29 09/18/24 16:30 Temperature Pulse Rate 55 L 63 80 Respiratory Rate 18 20 Blood Pressure Pulse Oximetry 92 92 Oxygen Delivery Nasal Cannula Nasal Cannula Oxygen Flow Rate 4 4 Fraction of Inspired Oxygen 09/18/24 16:32 09/18/24 16:38 09/18/24 16:59 Temperature 97.8 F Pulse Rate 65 63 61 Respiratory Rate 20 Blood Pressure 106/67 106/67 109/68 Pulse Oximetry 92 Oxygen Delivery Oxygen Flow Rate Fraction of Inspired Oxygen 09/18/24 17:30 09/18/24 18:00 09/18/24 18:00 Temperature Pulse Rate 59 L 65 65 Respiratory Rate Blood Pressure 96/53 L 96/58 L Pulse Oximetry Oxygen Delivery Oxygen Flow Rate Fraction of Inspired Oxygen 09/18/24 18:03 09/18/24 19:15 09/18/24 19:45 Temperature 97.5 F L Pulse Rate 70 56 L Respiratory Rate 18 23 H Blood Pressure 96/58 L Pulse Oximetry 92 94 94 Oxygen Delivery Nasal Cannula BiPAP Oxygen Flow Rate 4 Fraction of Inspired Oxygen 09/18/24 20:00 09/18/24 20:00 09/18/24 20:00 Temperature 97.5 F L Pulse Rate 55 L 54 L Respiratory Rate 18 Blood Pressure 94/68 L Pulse Oximetry 95 Oxygen Delivery BiPAP Oxygen Flow Rate Fraction of Inspired Oxygen 30 09/18/24 20:00 09/18/24 22:00 09/18/24 22:00 Temperature 97.5 F L Pulse Rate 55 L 57 L 57 L Respiratory Rate 18 Blood Pressure 94/68 L 91/59 L Pulse Oximetry 94 Oxygen Delivery Oxygen Flow Rate Fraction of Inspired Oxygen 09/18/24 22:00 09/19/24 00:00 09/19/24 00:00 Temperature Pulse Rate 57 L 59 L Respiratory Rate Blood Pressure 91/59 L 96/59 L Pulse Oximetry Oxygen Delivery BiPAP Oxygen Flow Rate Fraction of Inspired Oxygen 30 09/19/24 00:00 09/19/24 00:00 09/19/24 01:00 Temperature 97.2 F L Pulse Rate 59 L 59 L 58 L Respiratory Rate 18 30 H Blood Pressure 96/59 L Pulse Oximetry 94 94 Oxygen Delivery BiPAP Oxygen Flow Rate Fraction of Inspired Oxygen 09/19/24 02:00 09/19/24 02:00 09/19/24 04:00 Temperature 97.1 F L Pulse Rate 56 L 56 L 54 L Respiratory Rate 18 Blood Pressure 98/59 L 92/53 L Pulse Oximetry 99 Oxygen Delivery Oxygen Flow Rate Fraction of Inspired Oxygen 09/19/24 04:00 09/19/24 04:00 09/19/24 04:00 Temperature 97.0 F L Pulse Rate 54 L 54 L Respiratory Rate 18 Blood Pressure 92/53 L Pulse Oximetry 91 Oxygen Delivery BiPAP Oxygen Flow Rate Fraction of Inspired Oxygen 30 09/19/24 06:00 09/19/24 06:00 09/19/24 06:00 Temperature 97.3 F L Pulse Rate 55 L 55 L 55 L Respiratory Rate 18 Blood Pressure 97/59 L 97/59 L Pulse Oximetry 92 Oxygen Delivery Oxygen Flow Rate Fraction of Inspired Oxygen 09/19/24 08:00 09/19/24 08:00 09/19/24 08:40 Temperature 97.5 F L Pulse Rate 54 L 54 L Respiratory Rate 22 H 22 H Blood Pressure 99/59 L Pulse Oximetry 93 93 96 Oxygen Delivery BiPAP High Flow Therapy with Na Oxygen Flow Rate 25 Fraction of Inspired Oxygen 30 60 09/19/24 08:41 09/19/24 08:43 Temperature Pulse Rate 60 60 Respiratory Rate 18 20 Blood Pressure Pulse Oximetry 95 Oxygen Delivery High Flow Therapy with Na Oxygen Flow Rate 25 Fraction of Inspired Oxygen 60 Intake/Output Intake/Output: Intake & Output 06/21/25 09/17/24 09/18/24 09/19/24 23:59 23:59 23:59 23:59 Intake Total 4206.6 1395 Output Total 1430 925 Balance 2776.6 470 Meds/Results Medications: Active Medications Generic Name Dose Route Start Last Admin Trade Name Freq PRN Reason Stop Dose Admin Acetaminophen 650 mg 09/18/24 07:16 Acetaminophen 650 Mg Suppository RECTAL Q6H PRN Mild Pain (1-3) or Fever Albuterol/Ipratropium 3 ml 09/18/24 08:49 Ipratropium 0.5 Mg/Albuterol Sulfate 2.5 Mg Ampul.Neb 3 Ml INHALATION Q6HRT PRN Wheezing Fluticasone/Umeclidinium/Vilanterol 1 puff 09/18/24 10:00 09/19/24 08:25 Fluticasone/Umeclidin/Vilanter 100-62.5-25 Mcg Ellipta INHALATION 1 puff DAILYRT RICARDO Administration Piperacillin/Tazobactam/Dextrose 3.375 gm in 50 mls @ 100 mls/hr 09/18/24 12:00 09/19/24 06:03 Zosyn 3.375 Gm/Ns 50 Ml IVPB Infused Q6H RICARDO Infusion Norepinephrine Bitartrate 8 mg in 250 mls @ 0 mls/hr 09/18/24 10:55 09/19/24 06:00 Levophed 8 Mg/D5w 250 Ml IV CONT 0 mcg/min .Q0M RICARDO 0 mls/hr Titration Protocol 0 MCG/MIN Sodium Chloride 250 mls @ 30 mls/hr 09/19/24 07:32 Normal Saline Iv IV CONT 09/19/24 15:51 .Q8H20M STA Potassium Chloride 100 mls @ 25 mls/hr 09/19/24 07:50 Kcl 40 Meq/Water 100 Ml IVPB 09/19/24 11:49 ONCE ONE Morphine Sulfate 2 mg 09/18/24 11:52 09/18/24 11:55 Morphine Sulfate (*Crx) 2 Mg/Ml Inj IV PUSH 2 mg Q2H PRN Administration Pain Rated 7-10 Ondansetron HCl 4 mg 09/18/24 07:16 Ondansetron Inj 4 Mg/2 Ml Vial IV PUSH Q4H PRN Nausea Pantoprazole Sodium 40 mg 09/18/24 09:00 09/19/24 08:16 Pantoprazole Sodium Iv 40 Mg Vial IV PUSH 40 mg Q12HR RICARDO Administration Sodium Chloride 10 ml 09/18/24 14:00 09/19/24 03:58 Central Line Flush IV PUSH 10 ml Q8HR RICARDO Administration Sodium Chloride 10 ml 09/18/24 10:52 Central Line Flush IV PUSH PRN PRN with TPN bag changes Sodium Chloride 20 ml 09/18/24 10:52 Central Line Flush IV PUSH PRN PRN after blood draws Radiology Results: ITS Impressions Chest/Abdomen/Pelvis CTA 09/18/24 06:38 Impression: Very limited evaluation for pulmonary embolus due to timing of the contrast bolus. No definite large central pulmonary embolus. Circumferential wall thickening of ascending colon with soft tissue infiltration into the adjacent pericolonic fat, highly suspicious for colonic adenocarcinoma. Consider colonoscopy for further assessment and tissue sampling. Cirrhotic liver. 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 Potential alternative consideration. Enlarged gastrohepatic lymph node, suspicious for metastatic lymph node. Bibasilar pulmonary atelectasis. Head CT 09/18/24 07:12 Impression: No significant abnormality seen. GI Bleed Scan Nuclear Medicine 09/18/24 14:47 IMPRESSION: 1. No scintigraphic evidence for active gastrointestinal bleeding. Chest X-Ray 09/19/24 08:01 Impression: Possible small to moderate layering right pleural effusion with right basilar atelectasis versus pneumonia. Hazy left basilar and left perihilar airspace disease could reflect pulmonary edema/atelectasis versus pneumonia. Stable elevation left hemidiaphragm. Labs Labs: Laboratory Results - last 24 hr 09/18/24 09/18/24 09/18/24 05:23 10:38 18:28 WBC 6.9 7.0 RBC 3.08 L 3.56 L Hgb 6.7 L* 8.2 L Hct 23.7 L MCV 76.9 L MCH 21.8 L MCHC 28.3 L RDW 20.6 H Plt Count 68 L MPV TNP % Immature Plt Fraction 9.8 Puncture Site ABG pH ABG pCO2 ABG pO2 ABG PO2/FiO2 Ratio ABG HCO3 ABG O2 Saturation ABG O2 Content ABG Base Excess A-a Gradient Oxyhemoglobin Carboxyhemoglobin Methemoglobin Reduced Hemoglobin Total Hemoglobin O2 Delivery Device O2 Liters/Min FiO2 Expiratory Pressure Inspiratory Pressure Sodium Potassium Chloride Carbon Dioxide Anion Gap BUN Creatinine Estim Creat Clear Calc Estimated GFR Glucose Calcium Phosphorus Magnesium Iron 74 TIBC 349 % Saturation 21 Ferritin 14.30 Total Bilirubin AST ALT Alkaline Phosphatase Troponin I 0.872 H* D Total Protein Albumin Carcinoembryonic Ag 240.0 H Nasal MRSA (PCR) Not detected Blood Type A Negative Antibody Screen Negative Crossmatch See Detail 09/18/24 09/18/24 09/19/24 18:28 18:28 01:34 WBC 6.2 RBC 3.31 L Hgb 8.2 L 7.6 L Hct 27.7 L 28.1 L 25.7 L MCV 77.8 L 77.6 L MCH 23.0 L D 23.0 L MCHC 29.6 L 29.6 L RDW 20.2 H 20.3 H Plt Count 68 L 65 L MPV TNP TNP % Immature Plt Fraction 11.6 H 11.3 H Puncture Site ABG pH ABG pCO2 ABG pO2 ABG PO2/FiO2 Ratio ABG HCO3 ABG O2 Saturation ABG O2 Content ABG Base Excess A-a Gradient Oxyhemoglobin Carboxyhemoglobin Methemoglobin Reduced Hemoglobin Total Hemoglobin O2 Delivery Device O2 Liters/Min FiO2 Expiratory Pressure Inspiratory Pressure Sodium Potassium Chloride Carbon Dioxide Anion Gap BUN Creatinine Estim Creat Clear Calc Estimated GFR Glucose Calcium Phosphorus Magnesium Iron TIBC % Saturation Ferritin Total Bilirubin AST ALT Alkaline Phosphatase Troponin I 1.180 H* D Total Protein Albumin Carcinoembryonic Ag Nasal MRSA (PCR) Blood Type Antibody Screen Crossmatch 09/19/24 09/19/24 04:02 04:45 WBC 5.8 RBC 3.38 L Hgb 7.7 L Hct 26.7 L MCV 79.0 L MCH 22.8 L MCHC 28.8 L RDW 20.4 H Plt Count 64 L MPV TNP % Immature Plt Fraction 10.4 Puncture Site Left radial ABG pH 7.424 ABG pCO2 44.0 ABG pO2 67.7 L ABG PO2/FiO2 Ratio 2.26 ABG HCO3 28.2 H ABG O2 Saturation 93.8 L ABG O2 Content 11.4 L ABG Base Excess 3.4 A-a Gradient 94.5 Oxyhemoglobin 91.2 Carboxyhemoglobin 1.5 Methemoglobin 0.2 Reduced Hemoglobin 7.1 H Total Hemoglobin 8.8 L O2 Delivery Device Bipap O2 Liters/Min Not Reportable FiO2 30 Expiratory Pressure 6 Inspiratory Pressure 14 Sodium 140 Potassium 3.1 L Chloride 108 H Carbon Dioxide 30 Anion Gap 2 L BUN 18 Creatinine 1.14 Estim Creat Clear Calc 63 Estimated GFR > 60 Glucose 80 Calcium 7.7 L Phosphorus 3.4 Magnesium 2.2 Iron TIBC % Saturation Ferritin Total Bilirubin 1.4 H AST 77 H ALT 23 Alkaline Phosphatase 109 Troponin I Total Protein 5.5 L Albumin 2.4 L Carcinoembryonic Ag Nasal MRSA (PCR) Blood Type Antibody Screen Crossmatch
[2024-09-19] MEDS: SODIUM CHLORIDE 0.9% IV 250 ML 30 ML IV CONT (09:56)
--- NOTE | 2024-09-19 10:40 | PCFNICU ---
ICU Rounding Note: Pt current nutrition is NPO. Nutrition recommendation: advance diet as tolerated when medically able. Last recorded weight is 129.6 kg. Bowel Motility: No BM reported. Labs Reviewed: K 3.1,Alb 2.4, Hct 26.7, Hgb 7.7 Meds Noted: Zosyn, NS Skin: WNL Additional Notes: Patient NPO at this time. Will monitor to monitor for further nutritional interventions. Following daily in ICU rounds.
[2024-09-19 11:14] LABS: Hematocrit 28.3 % (42.0-52.0); Hemoglobin 8.2 g/dL (14.0-18.0); Immature Platelet Fraction Pct 11.4 % (0.9-11.2); Mean Corpuscular Hemoglobin 22.9 pg (26-34); Mean Corpuscular Volume 79.1 fl (80-100); Platelet Count Result 73 k/mm3 (150-375); Red Blood Count 3.58 M/mm3 (4.6-6.20); Red Cell Distribution Width 20.8 % (11.5-14.5); White Blood Count 5.5 K/mm3 (4.5-10.0)
[2024-09-19 11:25] LABS: INR 1.5; Partial Thromboplastin Time 33.1 Seconds (22.3-36.8); Prothrombin Time 17.9 Seconds (11.1-14.7)
[2024-09-19 11:26] LABS: Fibrinogen 305 mg/dl (215-510)
[2024-09-19 11:37] LABS: D Dimer 2.84 ug/mL (<0.48)
[2024-09-19 11:41] LABS: Magnesium 2.1 mg/dL (1.6-2.3)
[2024-09-19] MEDS: ACETAMINOPHEN 500 MG TABLET 1000 MG PO (13:15)
[2024-09-19] MEDS: guaiFENesin 12 HR 600 MG TABCR PO (20:42)
[2024-09-20] VITALS (25 sets, daily range): BP systolic 93–134; BP diastolic 57–77; PULSE 50–91; RESP 16–118; TEMP 36.2–37.7; O2SAT 90–99
[2024-09-20] MEDS: PIPERACILLN/TAZ 3.375GM/NS50ML 3.375 GM/50 ML BAG IVPB ×5 (00:54→23:42)
[2024-09-20] MEDS: ACETAMINOPHEN 500 MG TABLET 1000 MG PO ×2 (01:28→22:18)
[2024-09-20 02:14] LABS: CA-125. 52 U/mL (<35)
[2024-09-20 04:58] LABS: Basophils Absolute Auto 0.1 K/mm3 (0.0-0.1); Basophils Percent Auto 1.1 % (0.2-1.2); Eosinophils Absolute Auto 0.4 K/mm3 (0-0.3); Eosinophils Percent Auto 6.3 % (0-4.4); Hematocrit 27.2 % (42.0-52.0); Hemoglobin 7.9 g/dL (14.0-18.0); Immature Granulocyte Absolute 0.06 K/mm3 (0.00-0.031); Immature Granulocyte Percent A 1.1 % (0-0.5); Immature Platelet Fraction Pct 9.8 % (0.9-11.2); Lymphocytes Absolute Auto 1.02 K/mm3 (0.9-3.2); Mean Corpuscular Volume 79.1 fl (80-100); Monocytes Absolute Auto 0.8 K/mm3 (0.1-0.6); Monocytes Percent Auto 13.9 % (2.6-8.5); Neutrophils Absolute Auto 3.4 K/mm3 (1.3-6.7); Neutrophils Percent Auto 59.6 % (45.5-73.1); Platelet Count Result 74 k/mm3 (150-375); Red Blood Count 3.44 M/mm3 (4.6-6.20); White Blood Count 5.7 K/mm3 (4.5-10.0)
[2024-09-20 05:12] LABS: Alanine Aminotransferase 25 U/L (6-50); Albumin Level 2.5 g/dL (3.5-5.1); Alkaline Phosphatase 119 U/L (38-126); Anion Gap 9 mmol/L (4-12); Aspartate Amino Transferase 80 U/L (17-59); Bilirubin,Total 1.1 mg/dL (0.2-1.3); Blood Urea Nitrogen 16 mg/dL (9-20); Calcium 7.9 mg/dL (8.4-10.2); Carbon Dioxide 30 mmol/L (22-30); Chloride 107 mmol/L (98-107); Estimated CRCL calculation 61 ml/min; Estimated Glomerular Filt Rate 58; Glucose 99 mg/dL (65-110); Potassium 3.3 mmol/L (3.4-5.0); Sodium 146 mmol/L (137-145); Total Protein 5.7 g/dL (6.3-8.2)
[2024-09-20 05:26] LABS: Anisocytosis 1+; Band Neutrophils Percent 0 % (0-6); Hypochromasia 2+; Ovalocytes 1+; Platelet Estimate Decreased (Adequate); Poikilocytosis 1+; Schistocytes None Seen
[2024-09-20 05:36] LABS: Alveolar/Arterial O2 Gradient 96.6 mmHg; Base Excess ABG 5.6 mEq/l (+/-2.0); Carboxyhemoglobin 0.9 % THb (0-2.0); Fractional Inspired Oxygen 30 %; HCO3 ABG 29.8 mEq/l (22.0-26.0); Oxygen Content ABG 11.9 %vol (16.0-22.0); Oxygen Saturation ABG 94.5 % (95.0-100.0); Oxyhemoglobin 93.1 % THb (90.0-100.0); PCO2 ABG 42.2 mmHg (35.0-45.0); PO2 ABG 67.7 mmHg (80.0-100.0); PO2 FiO2 Ratio Arterial Blood 2.26 %; pH ABG 7.467 (7.350-7.450)
[2024-09-20] MEDS: CENTRAL LINE FLUSH 10 ML IV PUSH ×3 (05:38→20:23)
[2024-09-20 05:39] LABS: Device BIPAP; Modified Allen's Test Pass; Site Drawn RIGHT RADIAL
[2024-09-20 05:40] LABS: Expiratory Pressure 6 cmH2O; Inspiratory Pressure 14 cmH2O
[2024-09-20] MEDS: FLUTICASONE/UMECLIDIN/VILANTER 100-62.5-25 MCG ELLIPTA 1 PUFF INHALATION (07:58)
--- NOTE | 2024-09-20 08:31 | P.PNINT_ITS ---
Progress Note: A&P Assessment and Plan (1) Anemia: Code(s): D64.9 - Anemia, unspecified Status: Acute Assessment and Plan: Patient was recently diagnosed with anemia as an outpatient. He was getting iron infusions and was also being evaluated for lower GI bleed as he had a CT scan ordered. Patient initially was unable to get CT scan because he was unable to lay flat. 09/18: CT scan shows finding consists of colon cancer. I suspect patient may be having lower GI bleed -patient has received a total of 4 units of packed RBCs -09/19: s/p 1 unit platelets -DIC panel and not show any decreased fibrinogen level -continue to monitor hemoglobin level -Hold anticoagulation -IV PPI q.12 hours -appreciated GI evaluation and recommendations -hemoglobin stable this morning 7.9 09/20: Patient had hematuria early this morning by has resolved since (2) Sepsis: Code(s): A41.9 - Sepsis, unspecified organism Status: Acute Assessment and Plan: Sepsis secondary to UTI IV fluid bolus followed by IV fluid maintain IV Zosyn (09/18) 09/18: Blood cultures negative x2 show for 09/18: Urine culture no growth -not requiring any pressors (3) Acute and chronic respiratory failure: Code(s): J96.20 - Acute and chronic respiratory failure, unspecified whether with hypoxia or hypercapnia Status: Acute Assessment and Plan: Acute on chronic respiratory failure likely multifactorial secondary to encephalopathy, obesity hypoventilation syndrome, obstructive sleep apnea, atelectasis ? Chronic diaphragmatic weakness with elevated hemidiaphragm ABG shows hypercarbia and respiratory acidosis. Patient was placed on BiPAP in the ER, Repeat ABG was worse BiPAP settings were shows changed ABGs stable this morning morning Patient is more awake and alert this morning, on BiPAP overnight, alternating with Vapotherm during the day CT scan reviewed Continue Bronchodilators and Trelegy Ellipta 09/19: Chest x-ray shows bilateral pulmonary airspace disease with bilateral pleural effusions. Findings suggest advanced CHF. Correlate clinically for pneumonia. -patient do diuresed well, will continue diuresis today (4) ALBERT (obstructive sleep apnea): Code(s): G47.33 - Obstructive sleep apnea (adult) (pediatric) Status: Acute Assessment and Plan: Currently on BiPAP, alternate with Vapotherm (5) Colon cancer: Code(s): C18.9 - Malignant neoplasm of colon, unspecified Status: Acute Assessment and Plan: CT scan Circumferential wall thickening of ascending colon with soft tissue infiltration into the adjacent pericolonic fat, highly suspicious for colonic adenocarcinoma. Consider colonoscopy for further assessment and tissue sampling. Cirrhotic liver. 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 Potential alternative consideration. Enlarged gastrohepatic lymph node, suspicious for metastatic lymph node -appreciate GI evaluation and recommendations, since patient cannot lay flat, colonoscopy will not be possible at this time -continue PPI -family requested consultation to Oncology, orders placed (6) Atelectasis: Code(s): J98.11 - Atelectasis Status: Acute Assessment and Plan: Continue Vapotherm during the day and BiPAP at night (7) Obesity hypoventilation syndrome: Code(s): E66.2 - Morbid (severe) obesity with alveolar hypoventilation Status: Acute Assessment and Plan: Continue Vapotherm (8) Elevated serum creatinine: Code(s): R79.89 - Other specified abnormal findings of blood chemistry Status: Acute Assessment and Plan: Baseline creatinine unknown. Patient presented with creatinine 1.33. Patient is getting IV fluids sepsis. Monitor urine output electrolytes and creatinine. CT scan does not show any stones or obstruction He does have a large prostate and has a Still catheter now Monitor urine output electrolytes and creatinine -creatinine improving, 1.20 this morning (9) Elevated troponin: Code(s): R79.89 - Other specified abnormal findings of blood chemistry Status: Acute Assessment and Plan: Presented with elevated troponin. EKG reviewed. No history of chest pain. Likely stress mediated troponin leak secondary to respiratory failure, anemia and sepsis At this time he is not a candidate for any antiplatelet or anticoagulation due to anemia and thrombocytopenia and finding suggestive of colon cancer 09/18/2024: Echocardiogram Summary 1. Left ventricular chamber dimension is normal. 2. Left ventricular systolic function is normal, estimated at 60-65. 3. There is mildly increased left ventricular wall thickness. 4. The left ventricular diastolic function is grade I diastolic dysfunction. 5. Right ventricular systolic function is normal. 6. Right atrial chamber dimension is mildly enlarged. 7. No significant valvular disease. 8. RVSP 30 mmHg (10) Lower extremity edema: Code(s): R60.0 - Localized edema Status: Acute Assessment and Plan: Appears to be chronic bilateral lower extremity edema. Likely secondary to cor pulmonale. Plan DVT prophylaxis -SCD, no chemoprophylaxis secondary to thrombocytopenia and anemia Stress ulcer prophylaxis -PPI IV q.12 hours Nutrition -full liquid diet, obtain speech evaluation for swallow test, Code Status: DNR Total Critical Care Time: 33 minute 09/19: Discussed at length with and daughter and updated them with patient's condition and plan of care. I also discussed with the the recommendations of the community relations advisor and little able to perform colonoscopy given his respiratory compromise. The will be talking among themselves and, with the plan off either doing aggressive care or take him home on hospice. They changed the code status to DNR Due to a high probability of clinically significant, life threatening deterioration, the patient required my highest level of preparedness to intervene emergently and I personally spent this critical care time directly and personally managing the patient. This critical care time included obtaining a history; examining the patient; pulse oximetry; ordering and review of studies; arranging urgent treatment with development of a management plan; evaluation of patient's response to treatment; frequent reassessment; and discussions with other providers. It was exclusive of separately billable procedures and treating other patients and teaching time. Please see Assessment and Plan section and the rest of the note for further information on patient assessment and treatment Subjective Date/time seen: 09/20/24 08:31 Interval history: Reason for consult: Anemia, sepsis, UTI, acute on chronic respiratory failure requiring BiPAP, malignant neoplasm of the colon, acute kidney injury 09/20: Patient seen and examined the ICU, On BIPAP overnight. Patient is hard of hearing but able to answer questions. Denies nausea vomiting, no abdominal pain, no chest pain, afebrile, hemodynamically stable has been making good in response to diuresis yesterday,-1500 mL fluid balance in 24 hour. Nine this morning she patient did have some hematuria. It has cleared up at this time, urine is more kerwin colored. Patient tolerating full liquid diet Review of Systems Review of Systems: All systems reviewed & are unremarkable except as noted in HPI and below (HPI) Exam Narrative: General: Morbidly obese male , hard of hearing, alert and awake HEENT: Pupils equal and reactive, sclera is clear Lungs/Chest: Decreased breath sounds at bases bilaterally, no significant wheezing heard, rales at bases Cardiac: Regular rate and rhythm, S1-S2 was normal Abdomen: Normal bowel sounds. Morbidly obese. Soft. NT. ND. Extremities: Bilateral pitting edema present, left leg shows chronic venous stasis changes with ulcer that has healed, palpable pedal pulses : Still in place Neurologic: Awake, alert, follows simple commands in all extremity and answers to questions appropriate Skin: A bruising noted in upper extremities Objective Data Vital Signs Vital Signs: Vital Signs - 24 hr 09/19/24 08:40 09/19/24 08:41 09/19/24 08:43 Temperature Pulse Rate 60 60 Respiratory Rate 18 20 Blood Pressure Pulse Oximetry 96 95 Oxygen Delivery High Flow Therapy with Na High Flow Therapy with Na Oxygen Flow Rate 25 25 Fraction of Inspired Oxygen 60 60 09/19/24 10:00 09/19/24 10:00 09/19/24 10:00 Temperature 98.0 F 98.1 F Pulse Rate 61 60 Respiratory Rate 23 H 27 H Blood Pressure 103/64 103/64 Pulse Oximetry 93 93 94 Oxygen Delivery High Flow Therapy with Na Oxygen Flow Rate 35 Fraction of Inspired Oxygen 60 09/19/24 10:00 09/19/24 10:00 09/19/24 10:03 Temperature Pulse Rate 61 61 60 Respiratory Rate 21 H Blood Pressure 103/64 Pulse Oximetry 95 Oxygen Delivery High Flow Therapy with Na Oxygen Flow Rate 35 Fraction of Inspired Oxygen 60 09/19/24 10:15 09/19/24 10:15 09/19/24 11:15 Temperature 98.1 F 98.1 F 98.3 F Pulse Rate 63 59 L 61 Respiratory Rate 32 H 23 H 24 H Blood Pressure 105/65 105/65 103/62 Pulse Oximetry 93 95 93 Oxygen Delivery Oxygen Flow Rate Fraction of Inspired Oxygen 09/19/24 11:15 09/19/24 12:00 09/19/24 12:00 Temperature 98.3 F 98.3 F Pulse Rate 61 60 60 Respiratory Rate 23 H 22 H 22 H Blood Pressure 103/62 108/66 Pulse Oximetry 95 95 95 Oxygen Delivery High Flow Therapy with Na Oxygen Flow Rate 35 Fraction of Inspired Oxygen 60 09/19/24 12:00 09/19/24 12:00 09/19/24 13:57 Temperature Pulse Rate 60 65 74 Respiratory Rate 15 Blood Pressure 108/66 Pulse Oximetry 94 Oxygen Delivery High Flow Therapy with Na Oxygen Flow Rate 35 Fraction of Inspired Oxygen 60 09/19/24 14:00 09/19/24 14:00 09/19/24 14:15 Temperature 98.5 F Pulse Rate 74 74 70 Respiratory Rate 30 H Blood Pressure 113/64 112/64 Pulse Oximetry 94 Oxygen Delivery Oxygen Flow Rate Fraction of Inspired Oxygen 09/19/24 14:53 09/19/24 16:00 09/19/24 16:00 Temperature Pulse Rate 67 73 66 Respiratory Rate 33 H Blood Pressure 109/59 L Pulse Oximetry 93 Oxygen Delivery High Flow Therapy with Na Oxygen Flow Rate 35 Fraction of Inspired Oxygen 60 09/19/24 16:33 09/19/24 17:29 09/19/24 18:00 Temperature 98.8 F 98.8 F Pulse Rate 62 75 73 Respiratory Rate 24 H 24 H 33 H Blood Pressure 111/62 137/72 Pulse Oximetry 95 93 93 Oxygen Delivery High Flow Therapy with Na Oxygen Flow Rate 35 Fraction of Inspired Oxygen 60 09/19/24 18:00 09/19/24 19:42 09/19/24 20:00 Temperature 98.8 F Pulse Rate 72 70 66 Respiratory Rate 22 H 20 Blood Pressure 116/67 Pulse Oximetry 93 93 Oxygen Delivery High Flow Therapy with Na Oxygen Flow Rate 35 Fraction of Inspired Oxygen 60 09/19/24 20:00 09/19/24 20:00 09/19/24 21:54 Temperature Pulse Rate 62 Respiratory Rate Blood Pressure Pulse Oximetry 90 91 Oxygen Delivery High Flow Therapy with Na BiPAP Oxygen Flow Rate 35 Fraction of Inspired Oxygen 60 09/19/24 21:57 09/19/24 22:00 09/19/24 22:00 Temperature 98.2 F Pulse Rate 68 113 H 67 Respiratory Rate 34 H 28 H Blood Pressure 132/68 Pulse Oximetry 91 92 Oxygen Delivery BiPAP Oxygen Flow Rate Fraction of Inspired Oxygen 09/20/24 00:00 09/20/24 00:00 09/20/24 00:00 Temperature 98.4 F Pulse Rate 57 L 58 L Respiratory Rate 20 Blood Pressure 134/77 Pulse Oximetry 93 93 Oxygen Delivery BiPAP Oxygen Flow Rate 30 Fraction of Inspired Oxygen 09/20/24 01:08 09/20/24 02:00 09/20/24 02:00 Temperature 98.3 F Pulse Rate 61 58 L 62 Respiratory Rate 23 H 16 Blood Pressure 124/62 Pulse Oximetry 92 93 Oxygen Delivery BiPAP Oxygen Flow Rate Fraction of Inspired Oxygen 09/20/24 04:00 09/20/24 04:00 09/20/24 04:00 Temperature 97.8 F Pulse Rate 59 L 57 L Respiratory Rate 21 H Blood Pressure 104/69 Pulse Oximetry 93 93 Oxygen Delivery BiPAP Oxygen Flow Rate 30 Fraction of Inspired Oxygen 09/20/24 04:54 09/20/24 06:00 09/20/24 06:00 Temperature Pulse Rate 60 50 L 59 L Respiratory Rate 27 H 22 H Blood Pressure 102/62 Pulse Oximetry 93 94 Oxygen Delivery BiPAP Oxygen Flow Rate Fraction of Inspired Oxygen 09/20/24 06:51 09/20/24 08:00 09/20/24 08:02 Temperature 98.1 F 98.1 F Pulse Rate 68 Respiratory Rate 24 H Blood Pressure 119/71 Pulse Oximetry 96 93 Oxygen Delivery High Flow Therapy with Na Oxygen Flow Rate 35 Fraction of Inspired Oxygen 60 Intake/Output Intake/Output: Intake & Output 09/17/24 09/18/24 09/19/24 09/20/24 23:59 23:59 23:59 23:59 Intake Total 4206.6 2708 1834 Output Total 1430 4825 750 Balance 2776.6 -2117 1084 Meds/Results Medications: Active Medications Generic Name Dose Route Start Last Admin Trade Name Freq PRN Reason Stop Dose Admin Acetaminophen 650 mg 09/18/24 07:16 Acetaminophen 650 Mg Suppository RECTAL Q6H PRN Mild Pain (1-3) or Fever Acetaminophen 1,000 mg 09/19/24 12:46 09/20/24 01:28 Acetaminophen 500 Mg Tablet PO 1,000 mg Q8HR PRN Administration Mild Pain (1-3) or Fever Albuterol/Ipratropium 3 ml 09/18/24 08:49 Ipratropium 0.5 Mg/Albuterol Sulfate 2.5 Mg Ampul.Neb 3 Ml INHALATION Q6HRT PRN Wheezing Fluticasone/Umeclidinium/Vilanterol 1 puff 09/18/24 10:00 09/20/24 07:58 Fluticasone/Umeclidin/Vilanter 100-62.5-25 Mcg Ellipta INHALATION 1 puff DAILYRT RICARDO Administration Guaifenesin 600 mg 09/19/24 21:00 09/19/24 20:42 Guaifenesin 12 Hr 600 Mg Tabcr PO 600 mg Q12HR RICARDO Administration Piperacillin/Tazobactam/Dextrose 3.375 gm in 50 mls @ 100 mls/hr 09/18/24 12:00 09/20/24 05:38 Zosyn 3.375 Gm/Ns 50 Ml IVPB 100 mls/hr Q6H RICARDO Administration Potassium Chloride 100 mls @ 25 mls/hr 09/20/24 07:16 Kcl 40 Meq/Water 100 Ml IVPB 09/20/24 11:15 ONCE ONE Ondansetron HCl 4 mg 09/18/24 07:16 Ondansetron Inj 4 Mg/2 Ml Vial IV PUSH Q4H PRN Nausea Pantoprazole Sodium 40 mg 09/18/24 09:00 09/19/24 20:42 Pantoprazole Sodium Iv 40 Mg Vial IV PUSH 40 mg Q12HR RICARDO Administration Sodium Chloride 10 ml 09/18/24 14:00 09/20/24 05:38 Central Line Flush IV PUSH 10 ml Q8HR RICARDO Administration Sodium Chloride 10 ml 09/18/24 10:52 Central Line Flush IV PUSH PRN PRN with TPN bag changes Sodium Chloride 20 ml 09/18/24 10:52 Central Line Flush IV PUSH PRN PRN after blood draws Radiology Results: ITS Impressions Chest/Abdomen/Pelvis CTA 09/18/24 06:38 Impression: Very limited evaluation for pulmonary embolus due to timing of the contrast bolus. No definite large central pulmonary embolus. Circumferential wall thickening of ascending colon with soft tissue infiltration into the adjacent pericolonic fat, highly suspicious for colonic adenocarcinoma. Consider colonoscopy for further assessment and tissue sampling. Cirrhotic liver. 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 Potential alternative consideration. Enlarged gastrohepatic lymph node, suspicious for metastatic lymph node. Bibasilar pulmonary atelectasis. Head CT 09/18/24 07:12 Impression: No significant abnormality seen. GI Bleed Scan Nuclear Medicine 09/18/24 14:47 IMPRESSION: 1. No scintigraphic evidence for active gastrointestinal bleeding. Chest X-Ray 09/20/24 05:37 Impression: Sensitive bilateral pulmonary airspace disease with bilateral pleural effusions. Findings suggest advanced CHF. Correlate clinically for pneumonia. Right-sided PICC line. Labs Labs: Laboratory Results - last 24 hr 09/18/24 09/18/24 09/19/24 05:23 10:38 10:36 WBC 5.5 RBC 3.58 L Hgb 8.2 L Hct 28.3 L MCV 79.1 L MCH 22.9 L MCHC 29.0 L RDW 20.8 H Plt Count 73 L MPV TNP Immature Gran % (Auto) Neut % (Auto) Lymph % (Auto) [place] % (Auto) Eos % (Auto) Baso % (Auto) Lymph # (Auto) [place] # (Auto) Eos # (Auto) Baso # (Auto) Abs Immat Gran (auto) Absolute Neuts (auto) Absolute Nucleated RBC Band Neutrophils % Nucleated RBC % Platelet Estimate % Immature Plt Fraction 11.4 H Hypochromasia Poikilocytosis Anisocytosis Ovalocytes Schistocytes PT 17.9 H INR 1.5 APTT 33.1 Fibrinogen 305 D-Dimer 2.84 H Puncture Site ABG pH ABG pCO2 ABG pO2 ABG PO2/FiO2 Ratio ABG HCO3 ABG O2 Saturation ABG O2 Content ABG Base Excess A-a Gradient Oxyhemoglobin Carboxyhemoglobin Methemoglobin Reduced Hemoglobin Total Hemoglobin O2 Delivery Device O2 Liters/Min FiO2 Sodium Potassium Chloride Carbon Dioxide Anion Gap BUN Creatinine Estim Creat Clear Calc Estimated GFR Glucose Calcium Phosphorus Magnesium 2.1 Total Bilirubin AST ALT Alkaline Phosphatase Total Protein Albumin CA 125 Antigen 52 H Blood Type A Negative Antibody Screen Negative Crossmatch See Detail 09/20/24 09/20/24 04:38 04:41 WBC 5.7 RBC 3.44 L Hgb 7.9 L Hct 27.2 L MCV 79.1 L MCH 23.0 L MCHC 29.0 L RDW 21.0 H Plt Count 74 L MPV TNP Immature Gran % (Auto) 1.1 H Neut % (Auto) 59.6 Lymph % (Auto) 18.0 L [place] % (Auto) 13.9 H Eos % (Auto) 6.3 H Baso % (Auto) 1.1 Lymph # (Auto) 1.02 [place] # (Auto) 0.8 H Eos # (Auto) 0.4 H Baso # (Auto) 0.1 Abs Immat Gran (auto) 0.06 H Absolute Neuts (auto) 3.4 Absolute Nucleated RBC 0.000 Band Neutrophils % 0 Nucleated RBC % 0.0 Platelet Estimate Decreased % Immature Plt Fraction 9.8 Hypochromasia 2+ Poikilocytosis 1+ Anisocytosis 1+ Ovalocytes 1+ Schistocytes None seen PT INR APTT Fibrinogen D-Dimer Puncture Site Right radial ABG pH 7.467 H ABG pCO2 42.2 ABG pO2 67.7 L ABG PO2/FiO2 Ratio 2.26 ABG HCO3 29.8 H ABG O2 Saturation 94.5 L ABG O2 Content 11.9 L ABG Base Excess 5.6 A-a Gradient 96.6 Oxyhemoglobin 93.1 Carboxyhemoglobin 0.9 Methemoglobin 0.0 Reduced Hemoglobin 6.0 H Total Hemoglobin 9.0 L O2 Delivery Device Bipap O2 Liters/Min Not Reportable FiO2 30 Sodium 146 H Potassium 3.3 L Chloride 107 Carbon Dioxide 30 Anion Gap 9 BUN 16 Creatinine 1.20 Estim Creat Clear Calc 61 Estimated GFR 58 L Glucose 99 Calcium 7.9 L Phosphorus 3.0 Magnesium 2.0 Total Bilirubin 1.1 AST 80 H ALT 25 Alkaline Phosphatase 119 Total Protein 5.7 L Albumin 2.5 L CA 125 Antigen Blood Type Antibody Screen Crossmatch Quality VTE Prophylaxis VTE prophylaxis: mechanical ordered
[2024-09-20] MEDS: FUROSEMIDE INJ 40 MG/4 ML VIAL 20 MG IV PUSH (08:39)
[2024-09-20] MEDS: PANTOPRAZOLE SODIUM IV 40 MG VIAL IV PUSH ×2 (08:39→20:22)
[2024-09-20] MEDS: guaiFENesin 12 HR 600 MG TABCR PO ×2 (08:39→20:22)
[2024-09-20] MEDS: POTASSIUM CHLORIDE 20 MEQ PACKET (FOR LIQUID) 40 MEQ PO (08:40)
[2024-09-20] MEDS: KCL 40 MEQ/WATER 100 ML 100 ML 25 ML IVPB (08:47)
--- NOTE | 2024-09-20 09:55 | PCSTNOTE ---
Please refer to the Bedside Swallow Evaluation in the EMR. Please note, silent aspiration cannot be ruled out at bedside. The patient is 79 year old male with a diagnosis of acute and chronic respiratory failure. More recent dx pneumonia BSS to r/o aspiration risk. Family is at bedside and reports no noted coughing or choking over the past few months with food or drink and no history of pneumonia within the past 6 months. The patient was positioned upright in bed and provided trials of tsp/cup thin liquid, soft bite size solids, and puree texture. Oral Stage: The patient demonstrated timely oral preparation and transit for all consistencies without residual. Pharyngeal Stage: Swallow initiation was timely across consistencies with good laryngeal elevation and no clinical signs of aspiration such as coughing, throat clearing or change in vocal quality. Reviewed results with family, Nurse(Cherelle) and Dr. [place]. Recommend if respiratory status did not improve good do MBS in future to r/o silent aspiration.
--- NOTE | 2024-09-20 09:56 | P.PNGS_ITS ---
Progress Note: A&P Assessment and Plan (1) Colonic mass: Code(s): K63.89 - Other specified diseases of intestine Status: Acute Assessment and Plan: * Ascending colon mass with likely metastatic liver lesions on CT, c/w presumed metastatic colon cancer. CEA significantly elevated. Patient is not currently a candidate for colonoscopy due to his respiratory status. * Still no BM or flatus since admission with some proximal distention of the cecum on CT. Doubt patient could tolerate a Hypaque enema at this time d/t his respiratory status. Will give a dulcolax suppository today. Still no indication for urgent surgical intervention at this time. No abdominal pain and his abd exam is benign. Discussed with patient's family that he may have some element of a partial bowel obstruction secondary to the colon mass. Surgical management would be reserved for evidence of a high-grade obstruction, active bleeding, or perforation, if the patient was medically stable enough to consider a surgery. Will continue to follow along. * Overall his prognosis is poor and he is a poor surgical candidate given multiple comorbidities, advanced age, and metastatic cancer. Family is planning to speak with Oncology to help decide on Hospice vs aggressive care. (2) Cirrhosis: Qualifiers: Hepatic cirrhosis type: unspecified hepatic cirrhosis Ascites presence: without ascites Qualified Code(s): K74.60 - Unspecified cirrhosis of liver Code(s): K74.60 - Unspecified cirrhosis of liver Status: Acute (3) Portal hypertension: Code(s): K76.6 - Portal hypertension Status: Acute (4) Microcytic anemia: Code(s): D50.9 - Iron deficiency anemia, unspecified Status: Acute Assessment and Plan: * Etiology likely multifactorial. Hgb remains stable at 7.9. Tagged RBC scan n egative for active bleeding. Trend labs. (5) Sepsis: Code(s): A41.9 - Sepsis, unspecified organism Status: Acute Assessment and Plan: * Sarona to be secondary to UTI. No longer on vasopressors. Continue IV abx and management per primary service/Catering Manager. (6) Thrombocytopenia: Code(s): D69.6 - Thrombocytopenia, unspecified Status: Acute Assessment and Plan: * Platelets 74,000, 1 unit of platelets transfused yesterday (7) Acute and chronic respiratory failure: Code(s): J96.20 - Acute and chronic respiratory failure, unspecified whether with hypoxia or hypercapnia Status: Acute Assessment and Plan: * Still requiring a fair amount of oxygen on Vapotherm. Increases risks for any anesthesia or procedures, including colonoscopy Plan I have discussed the patient's case and plan of care with Dr. Jeronimo. Subjective Subjective Date/Time Seen: 09/20/24 09:56 Interval history: Patient seen in ICU. Not on any vasopressors. He is still on 60% FiO2 Vapotherm. He denies any abdominal pain, nausea or vomiting. He is tolerating a full liquid diet. He is not passing flatus and has not had a BM since admission. Family at the bedside ( and daughter), who had a long discussion with the Catering Manager yesterday regarding plan of care and their wishes for aggressive treatment vs Hospice. They wish to talk to Oncology first before making a definitive decision and Oncology has been consulted. Exam Const: General: comfortable and ill appearing Orientation/consciousness: oriented to person, oriented to place and confusion (dementia) GI: Inspection: non-distended, Pannus present and obesity GI Palp: Yes Soft to palpation, No Tenderness to palpation present (GI), No Guarding due to palpation present (GI) and No Rebound tenderness present Auscultation: normal bowel sounds Objective Data Vital Signs Vital Signs: Vital Signs - 24 hr 09/19/24 10:09/19/24 10:00 09/19/24 10:00 Temperature 98.0 F 98.1 F Pulse Rate 61 60 Respiratory Rate 23 H 27 H Blood Pressure 103/64 103/64 Pulse Oximetry 93 93 94 Oxygen Delivery High Flow Therapy with Na Oxygen Flow Rate 35 Fraction of Inspired Oxygen 60 09/19/24 10:00 09/19/24 10:00 09/19/24 10:03 Temperature Pulse Rate 61 61 60 Respiratory Rate 21 H Blood Pressure 103/64 Pulse Oximetry 95 Oxygen Delivery High Flow Therapy with Na Oxygen Flow Rate 35 Fraction of Inspired Oxygen 60 09/19/24 10:15 09/19/24 10:15 09/19/24 11:15 Temperature 98.1 F 98.1 F 98.3 F Pulse Rate 63 59 L 61 Respiratory Rate 32 H 23 H 24 H Blood Pressure 105/65 105/65 103/62 Pulse Oximetry 93 95 93 Oxygen Delivery Oxygen Flow Rate Fraction of Inspired Oxygen 09/19/24 11:15 09/19/24 12:00 09/19/24 12:00 Temperature 98.3 F 98.3 F Pulse Rate 61 60 60 Respiratory Rate 23 H 22 H 22 H Blood Pressure 103/62 108/66 Pulse Oximetry 95 95 95 Oxygen Delivery High Flow Therapy with Na Oxygen Flow Rate 35 Fraction of Inspired Oxygen 60 09/19/24 12:00 09/19/24 12:00 09/19/24 13:57 Temperature Pulse Rate 60 65 74 Respiratory Rate 15 Blood Pressure 108/66 Pulse Oximetry 94 Oxygen Delivery High Flow Therapy with Na Oxygen Flow Rate 35 Fraction of Inspired Oxygen 60 09/19/24 14:00 09/19/24 14:00 09/19/24 14:15 Temperature 98.5 F Pulse Rate 74 74 70 Respiratory Rate 30 H Blood Pressure 113/64 112/64 Pulse Oximetry 94 Oxygen Delivery Oxygen Flow Rate Fraction of Inspired Oxygen 09/19/24 14:53 09/19/24 16:00 09/19/24 16:00 Temperature Pulse Rate 67 73 66 Respiratory Rate 33 H Blood Pressure 109/59 L Pulse Oximetry 93 Oxygen Delivery High Flow Therapy with Na Oxygen Flow Rate 35 Fraction of Inspired Oxygen 60 09/19/24 16:33 09/19/24 17:29 09/19/24 18:00 Temperature 98.8 F 98.8 F Pulse Rate 62 75 73 Respiratory Rate 24 H 24 H 33 H Blood Pressure 111/62 137/72 Pulse Oximetry 95 93 93 Oxygen Delivery High Flow Therapy with Na Oxygen Flow Rate 35 Fraction of Inspired Oxygen 60 09/19/24 18:00 09/19/24 19:42 09/19/24 20:00 Temperature 98.8 F Pulse Rate 72 70 66 Respiratory Rate 22 H 20 Blood Pressure 116/67 Pulse Oximetry 93 93 Oxygen Delivery High Flow Therapy with Na Oxygen Flow Rate 35 Fraction of Inspired Oxygen 60 09/19/24 20:00 09/19/24 20:00 09/19/24 21:54 Temperature Pulse Rate 62 Respiratory Rate Blood Pressure Pulse Oximetry 90 91 Oxygen Delivery High Flow Therapy with Na BiPAP Oxygen Flow Rate 35 Fraction of Inspired Oxygen 60 09/19/24 21:57 09/19/24 22:00 09/19/24 22:00 Temperature 98.2 F Pulse Rate 68 113 H 67 Respiratory Rate 34 H 28 H Blood Pressure 132/68 Pulse Oximetry 91 92 Oxygen Delivery BiPAP Oxygen Flow Rate Fraction of Inspired Oxygen 09/20/24 00:00 09/20/24 00:00 09/20/24 00:00 Temperature 98.4 F Pulse Rate 57 L 58 L Respiratory Rate 20 Blood Pressure 134/77 Pulse Oximetry 93 93 Oxygen Delivery BiPAP Oxygen Flow Rate 30 Fraction of Inspired Oxygen 09/20/24 01:08 09/20/24 02:00 09/20/24 02:00 Temperature 98.3 F Pulse Rate 61 58 L 62 Respiratory Rate 23 H 16 Blood Pressure 124/62 Pulse Oximetry 92 93 Oxygen Delivery BiPAP Oxygen Flow Rate Fraction of Inspired Oxygen 09/20/24 04:00 09/20/24 04:00 09/20/24 04:00 Temperature 97.8 F Pulse Rate 59 L 57 L Respiratory Rate 21 H Blood Pressure 104/69 Pulse Oximetry 93 93 Oxygen Delivery BiPAP Oxygen Flow Rate 30 Fraction of Inspired Oxygen 09/20/24 04:54 09/20/24 06:00 09/20/24 06:00 Temperature Pulse Rate 60 50 L 59 L Respiratory Rate 27 H 22 H Blood Pressure 102/62 Pulse Oximetry 93 94 Oxygen Delivery BiPAP Oxygen Flow Rate Fraction of Inspired Oxygen 09/20/24 06:51 09/20/24 08:00 09/20/24 08:00 Temperature 98.1 F 98.1 F Pulse Rate 68 68 Respiratory Rate 24 H 24 H Blood Pressure 119/71 Pulse Oximetry 96 93 Oxygen Delivery High Flow Therapy with Na Oxygen Flow Rate 35 Fraction of Inspired Oxygen 60 09/20/24 08:00 09/20/24 08:02 Temperature Pulse Rate 68 Respiratory Rate Blood Pressure Pulse Oximetry 93 Oxygen Delivery High Flow Therapy with Na Oxygen Flow Rate 35 Fraction of Inspired Oxygen 60 Intake/Output Intake/Output: Intake & Output 09/17/24 09/18/24 09/19/24 09/20/24 23:59 23:59 23:59 23:59 Intake Total 4206.6 2708 1834 Output Total 4570 1259 750 Balance 2196.6 -8590 1084 Meds/Results Medications: Active Medications Generic Name Dose Route Start Last Admin Trade Name Freq PRN Reason Stop Dose Admin Acetaminophen 650 mg 09/18/24 07:16 Acetaminophen 650 Mg Suppository RECTAL Q6H PRN Mild Pain (1-3) or Fever Acetaminophen 1,000 mg 09/19/24 12:46 09/20/24 01:28 Acetaminophen 500 Mg Tablet PO 1,000 mg Q8HR PRN Administration Mild Pain (1-3) or Fever Albuterol/Ipratropium 3 ml 09/18/24 08:49 Ipratropium 0.5 Mg/Albuterol Sulfate 2.5 Mg Ampul.Neb 3 Ml INHALATION Q6HRT PRN Wheezing Fluticasone/Umeclidinium/Vilanterol 1 puff 09/18/24 10:00 09/20/24 07:58 Fluticasone/Umeclidin/Vilanter 100-62.5-25 Mcg Ellipta INHALATION 1 puff DAILYRT RICARDO Administration Guaifenesin 600 mg 09/19/24 21:00 09/20/24 08:39 Guaifenesin 12 Hr 600 Mg Tabcr PO 600 mg Q12HR RICARDO Administration Piperacillin/Tazobactam/Dextrose 3.375 gm in 50 mls @ 100 mls/hr 09/18/24 12:00 09/20/24 05:38 Zosyn 3.375 Gm/Ns 50 Ml IVPB 100 mls/hr Q6H RICARDO Administration Potassium Chloride 100 mls @ 25 mls/hr 09/20/24 07:16 09/20/24 08:47 Kcl 40 Meq/Water 100 Ml IVPB 09/20/24 11:15 25 mls/hr ONCE ONE Administration Ondansetron HCl 4 mg 09/18/24 07:16 Ondansetron Inj 4 Mg/2 Ml Vial IV PUSH Q4H PRN Nausea Pantoprazole Sodium 40 mg 09/18/24 09:00 09/20/24 08:39 Pantoprazole Sodium Iv 40 Mg Vial IV PUSH 40 mg Q12HR RICARDO Administration Sodium Chloride 10 ml 09/18/24 14:00 09/20/24 05:38 Central Line Flush IV PUSH 10 ml Q8HR RICARDO Administration Sodium Chloride 10 ml 09/18/24 10:52 Central Line Flush IV PUSH PRN PRN with TPN bag changes Sodium Chloride 20 ml 09/18/24 10:52 Central Line Flush IV PUSH PRN PRN after blood draws Radiology Results: ITS Impressions Chest/Abdomen/Pelvis CTA 09/18/24 06:38 Impression: Very limited evaluation for pulmonary embolus due to timing of the contrast bolus. No definite large central pulmonary embolus. Circumferential wall thickening of ascending colon with soft tissue infiltration into the adjacent pericolonic fat, highly suspicious for colonic adenocarcinoma. Consider colonoscopy for further assessment and tissue sampling. Cirrhotic liver. 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 Potential alternative consideration. Enlarged gastrohepatic lymph node, suspicious for metastatic lymph node. Bibasilar pulmonary atelectasis. Head CT 09/18/24 07:12 Impression: No significant abnormality seen. GI Bleed Scan Nuclear Medicine 09/18/24 14:47 IMPRESSION: 1. No scintigraphic evidence for active gastrointestinal bleeding. Chest X-Ray 09/20/24 05:37 Impression: Sensitive bilateral pulmonary airspace disease with bilateral pleural effusions. Findings suggest advanced CHF. Correlate clinically for pneumonia. Right-sided PICC line. Labs Labs: Laboratory Results - last 24 hr 09/18/24 09/18/24 09/19/24 05:23 10:38 10:36 WBC 5.5 RBC 3.58 L Hgb 8.2 L Hct 28.3 L MCV 79.1 L MCH 22.9 L MCHC 29.0 L RDW 20.8 H Plt Count 73 L MPV TNP Immature Gran % (Auto) Neut % (Auto) Lymph % (Auto) [place] % (Auto) Eos % (Auto) Baso % (Auto) Lymph # (Auto) [place] # (Auto) Eos # (Auto) Baso # (Auto) Abs Immat Gran (auto) Absolute Neuts (auto) Absolute Nucleated RBC Band Neutrophils % Nucleated RBC % Platelet Estimate % Immature Plt Fraction 11.4 H Hypochromasia Poikilocytosis Anisocytosis Ovalocytes Schistocytes PT 17.9 H INR 1.5 APTT 33.1 Fibrinogen 305 D-Dimer 2.84 H Puncture Site ABG pH ABG pCO2 ABG pO2 ABG PO2/FiO2 Ratio ABG HCO3 ABG O2 Saturation ABG O2 Content ABG Base Excess A-a Gradient Oxyhemoglobin Carboxyhemoglobin Methemoglobin Reduced Hemoglobin Total Hemoglobin O2 Delivery Device O2 Liters/Min FiO2 Sodium Potassium Chloride Carbon Dioxide Anion Gap BUN Creatinine Estim Creat Clear Calc Estimated GFR Glucose Calcium Phosphorus Magnesium 2.1 Total Bilirubin AST ALT Alkaline Phosphatase Total Protein Albumin CA 125 Antigen 52 H Blood Type A Negative Antibody Screen Negative Crossmatch See Detail 09/20/24 09/20/24 04:38 04:41 WBC 5.7 RBC 3.44 L Hgb 7.9 L Hct 27.2 L MCV 79.1 L MCH 23.0 L MCHC 29.0 L RDW 21.0 H Plt Count 74 L MPV TNP Immature Gran % (Auto) 1.1 H Neut % (Auto) 59.6 Lymph % (Auto) 18.0 L [place] % (Auto) 13.9 H Eos % (Auto) 6.3 H Baso % (Auto) 1.1 Lymph # (Auto) 1.02 [place] # (Auto) 0.8 H Eos # (Auto) 0.4 H Baso # (Auto) 0.1 Abs Immat Gran (auto) 0.06 H Absolute Neuts (auto) 3.4 Absolute Nucleated RBC 0.000 Band Neutrophils % 0 Nucleated RBC % 0.0 Platelet Estimate Decreased % Immature Plt Fraction 9.8 Hypochromasia 2+ Poikilocytosis 1+ Anisocytosis 1+ Ovalocytes 1+ Schistocytes None seen PT INR APTT Fibrinogen D-Dimer Puncture Site Right radial ABG pH 7.467 H ABG pCO2 42.2 ABG pO2 67.7 L ABG PO2/FiO2 Ratio 2.26 ABG HCO3 29.8 H ABG O2 Saturation 94.5 L ABG O2 Content 11.9 L ABG Base Excess 5.6 A-a Gradient 96.6 Oxyhemoglobin 93.1 Carboxyhemoglobin 0.9 Methemoglobin 0.0 Reduced Hemoglobin 6.0 H Total Hemoglobin 9.0 L O2 Delivery Device Bipap O2 Liters/Min Not Reportable FiO2 30 Sodium 146 H Potassium 3.3 L Chloride 107 Carbon Dioxide 30 Anion Gap 9 BUN 16 Creatinine 1.20 Estim Creat Clear Calc 61 Estimated GFR 58 L Glucose 99 Calcium 7.9 L Phosphorus 3.0 Magnesium 2.0 Total Bilirubin 1.1 AST 80 H ALT 25 Alkaline Phosphatase 119 Total Protein 5.7 L Albumin 2.5 L CA 125 Antigen Blood Type Antibody Screen Crossmatch
[2024-09-20] MEDS: CHLOROTHIAZIDE 500 MG VIAL 250 MG IV PUSH (09:59)
[2024-09-20 10:59] LABS: Alpha Fetoprotein TumorMarker. 2.2 ng/mL (<6.1)
--- NOTE | 2024-09-20 11:00 | PCFNICU ---
ICU Rounding Note: Pt current nutrition is Full liquid diet, Ensure HP+ TID (350 kcal, 20 g protein) Nutrition recommendation: No new recommendations. Continue current nutrition care plan and orders. Agree with orders Last recorded weight is 132 kg. Bowel Motility: No BMs. Bowel regimen in place. Colon mass partially obstructing bowels Labs Reviewed: Hgb 7.9, Hct 27.2, Alb 2.5, Na 146, K+ 3.3 Meds Noted: Zosyn, miralax, senna Skin: WNL Additional Notes: Taking in full liquids 90-100%. Awaiting family/oncology consult decision making. Continue current orders Following daily in ICU rounds. .
[2024-09-20] MEDS: BISACODYL 10 MG SUPPOSITORY RECTAL (11:14)
--- NOTE | 2024-09-20 18:35 | P.CONONC_ITS ---
Assessment and Plan Assessment and plan (1) Colonic mass: Code(s): K63.89 - Other specified diseases of intestine Status: Acute Assessment and Plan: Likely metastatic colon cancer. 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 Patient came into the hospital with mental status changes and shortness of breath. Hemoglobin was found to be 6.2. He denies any bleeding. CT scan finding reviewed that showed liver cirrhosis, liver masses and ascending colon thickening suspicious for metastatic colon cancer. CEA is elevated at 240. Patient is 79-year-old male with liver cirrhosis and profound anemia with thrombocytopenia. He will not be a good candidate for any cytotoxic chemotherapy due to his underlying liver disease, anemia and thrombocytopenia. I will not put him through liver biopsy knowing that he will not be able to get any chemotherapy due to low blood counts and poor performance status. We discussed prognosis of metastatic colon cancer as well. We discussed in detail regarding comfort care and hospice. Patient family seems quite agreeable. I have provided them my office information if they like to follow-up in the office. HPI Data of Consult Date/Time: 09/20/24 18:35 Requesting Physician: Beba Orona MD Primary Care Provider: ALFONSO,JANIE Villa M.D. Consult Narrative Narrative: Wyatt Lyon Sr. 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 Patient lives at home with his . He denies any previous history of malignancy. Denies any melena hematochezia. Denies any diarrhea and constipation. For his anemia he was recommended to have colonoscopy but did not get it done due to his breathing status and claustrophobia. He came into the ER the labs showed hemoglobin of 6.6. Patient receive 4 units of packed red blood cells so far. CT chest abdomen pelvis showed circumferential wall thickening of the ascending colon suspicious for colon cancer along with multiple liver masses and cirrhosis of the liver. There was enlarged gastrohepatic lymphadenopathy suspicious for metastatic disease. CEA came back elevated at 240. He seems to be alert and oriented other than dementia. He is sitting up in the chair today and has been having some difficulty hearing. Review of Systems 2 Review of Systems: Twelve point review of system was reviewed [facility] Past Medical History Medical History Dementia Chronic respiratory failure GBS (Guillain Franklin syndrome) Leg edema, right Bladder stone Surgical History Surgical History H/O lithotripsy Family History Family History Father Asthma Social History Social History Smoking status: Never smoker Alcohol intake: never Substance use: never Substance use type: does not use Do You Feel Safe in your Home?: Yes Lack of Transportation: No Lack of Food: Never True Current Housing: I Have Housing Concerned About Future Housing: No Difficulty Paying Gas/Electric Bills: No Difficulty Paying for Meds: No Currently Unemployed: No Education: Associate Degree Difficulty w/ Childcare or Family Care: No Spiritual care concerns: No Meds Home Medications and Allergies Home Medications ?Medication ?Instructions ?Recorded ?Confirmed ?Type magnesium oxide 400 mg PO DAILY 04/12/19 09/18/24 History melatonin 10 mg tablet 10 mg PO HS 04/12/19 09/18/24 History trazodone 100 mg tablet 150 mg PO HS 04/12/19 09/18/24 History furosemide 20 mg tablet 20 mg PO Q12H 04/13/19 09/18/24 History potassium chloride 10 mEq 10 meq PO DAILY 04/13/19 09/18/24 History capsule,extended release rivastigmine 9.5 mg/24 hour 9.5 mg transdermal DAILY 04/13/19 09/18/24 History transdermal patch fluticasone fur. 100 mcg-umeclid 1 inhalation inhalation DAILY 07/26/19 09/18/24 History 62.5 mcg-vilant 25 mcg inhalat.powder (Trelegy Ellipta) metformin 500 mg tablet 500 mg PO DAILY 09/18/24 09/18/24 History Allergies Allergy/AdvReac Type Severity Reaction Status Date / Time cephalexin Allergy Unknown Hives Verified 07/27/19 11:28 Vital Signs Vital Signs - 24 hr 09/19/24 19:42 09/19/24 20:00 09/19/24 20:00 Temperature 37.1 C Pulse Rate 70 66 Respiratory Rate 22 H 20 Blood Pressure 116/67 Pulse Oximetry 93 93 90 Oxygen Delivery High Flow Therapy with Na High Flow Therapy with Na Oxygen Flow Rate 35 35 Fraction of Inspired Oxygen 60 60 09/19/24 20:00 09/19/24 21:54 09/19/24 21:57 Temperature Pulse Rate 62 68 Respiratory Rate 34 H Blood Pressure Pulse Oximetry 91 91 Oxygen Delivery BiPAP BiPAP Oxygen Flow Rate Fraction of Inspired Oxygen 09/19/24 22:00 09/19/24 22:00 09/20/24 00:00 Temperature 36.8 C 36.9 C Pulse Rate 113 H 67 57 L Respiratory Rate 28 H 20 Blood Pressure 132/68 134/77 Pulse Oximetry 92 93 Oxygen Delivery Oxygen Flow Rate Fraction of Inspired Oxygen 09/20/24 00:00 09/20/24 00:00 09/20/24 01:08 Temperature Pulse Rate 58 L 61 Respiratory Rate 23 H Blood Pressure Pulse Oximetry 93 92 Oxygen Delivery BiPAP BiPAP Oxygen Flow Rate 30 Fraction of Inspired Oxygen 09/20/24 02:00 09/20/24 02:00 09/20/24 04:00 Temperature 36.8 C 36.6 C Pulse Rate 58 L 62 59 L Respiratory Rate 16 21 H Blood Pressure 124/62 104/69 Pulse Oximetry 93 93 Oxygen Delivery Oxygen Flow Rate Fraction of Inspired Oxygen 09/20/24 04:00 09/20/24 04:00 09/20/24 04:54 Temperature Pulse Rate 57 L 60 Respiratory Rate 27 H Blood Pressure Pulse Oximetry 93 93 Oxygen Delivery BiPAP BiPAP Oxygen Flow Rate 30 Fraction of Inspired Oxygen 09/20/24 06:00 09/20/24 06:00 09/20/24 06:51 Temperature 36.7 C Pulse Rate 50 L 59 L Respiratory Rate 22 H Blood Pressure 102/62 Pulse Oximetry 94 Oxygen Delivery Oxygen Flow Rate Fraction of Inspired Oxygen 09/20/24 08:00 09/20/24 08:00 09/20/24 08:00 Temperature 36.7 C Pulse Rate 68 68 68 Respiratory Rate 24 H 24 H Blood Pressure 119/71 Pulse Oximetry 96 93 Oxygen Delivery High Flow Therapy with Na Oxygen Flow Rate 35 Fraction of Inspired Oxygen 60 09/20/24 08:02 09/20/24 10:00 09/20/24 10:00 Temperature 36.2 C L Pulse Rate 64 68 Respiratory Rate 24 H Blood Pressure 109/57 L Pulse Oximetry 93 92 Oxygen Delivery High Flow Therapy with Na Oxygen Flow Rate 35 Fraction of Inspired Oxygen 60 09/20/24 10:42 09/20/24 12:00 09/20/24 12:00 Temperature 37.3 C Pulse Rate 65 65 Respiratory Rate 18 18 Blood Pressure 100/64 Pulse Oximetry 94 94 Oxygen Delivery High Flow Therapy with Na High Flow Therapy with Na Oxygen Flow Rate 35 35 Fraction of Inspired Oxygen 50 09/20/24 12:00 09/20/24 13:58 09/20/24 14:00 Temperature Pulse Rate 61 57 L Respiratory Rate Blood Pressure Pulse Oximetry 96 Oxygen Delivery High Flow Therapy with Na Oxygen Flow Rate 35 Fraction of Inspired Oxygen 50 09/20/24 14:27 09/20/24 16:00 09/20/24 16:00 Temperature 37.4 C Pulse Rate 62 62 Respiratory Rate 21 H Blood Pressure 94/59 L Pulse Oximetry 90 Oxygen Delivery High Flow Therapy with Na Oxygen Flow Rate 35 Fraction of Inspired Oxygen 09/20/24 16:30 09/20/24 16:30 09/20/24 16:31 Temperature Pulse Rate Respiratory Rate Blood Pressure Pulse Oximetry 99 98 99 Oxygen Delivery High Flow Therapy with Na High Flow Therapy with Na High Flow Therapy with Na Oxygen Flow Rate 30 35 30 Fraction of Inspired Oxygen 50 50 50 09/20/24 18:00 09/20/24 18:26 Temperature Pulse Rate 57 L Respiratory Rate Blood Pressure Pulse Oximetry 97 Oxygen Delivery High Flow Therapy with Na Oxygen Flow Rate 30 Fraction of Inspired Oxygen 45 Exam 2 Narrative: Lung sounds congested without any wheezing Cardiovascular regular rate rhythm no murmurs Abdomen is slightly distended bowel sounds are positive Extremities no edema Results Labs 09/20/24 04:38 09/20/24 04:38 Labs: Short CBC 09/20/24 Range/Units 04:38 WBC 5.7 (4.5-10.0) K/mm3 Hgb 7.9 L (14.0-18.0) g/dL Hct 27.2 L (42.0-52.0) % Plt Count 74 L (150-375) k/mm3 BMP 09/20/24 04:38 Sodium 146 H Potassium 3.3 L Chloride 107 Carbon Dioxide 30 BUN 16 Creatinine 1.20 Glucose 99 Calcium 7.9 L Liver Function 09/20/ Range/Units 04:38 Total Bilirubin 1.1 (0.2-1.3) mg/dL AST 80 H (17-59) U/L ALT 25 (6-50) U/L Alkaline Phosphatase 119 (38-126) U/L Albumin 2.5 L (3.5-5.1) g/dL
[2024-09-20] MEDS: SENNA/DOCUSATE SODIUM TABLET 1 TAB PO (20:22)
[2024-09-21] VITALS (23 sets, daily range): BP systolic 97–115; BP diastolic 52–65; PULSE 55–73; RESP 15–23; TEMP 36.2–37.4; O2SAT 92–100
[2024-09-21] MEDS: MORPHINE SULFATE (*CRX) 4 MG/ML INJ IV PUSH ×2 (01:43→05:15)
[2024-09-21 05:03] LABS: Base Excess ABG 4.9 mEq/l (+/-2.0); Carboxyhemoglobin 1.1 % THb (0-2.0); Fractional Inspired Oxygen 30 %; HCO3 ABG 30.3 mEq/l (22.0-26.0); Methemoglobin ABG 0.3 %THb (0-1.5); Oxygen Content ABG 11.9 %vol (16.0-22.0); Oxyhemoglobin 93.2 % THb (90.0-100.0); PCO2 ABG 49.1 mmHg (35.0-45.0); PO2 ABG 75.2 mmHg (80.0-100.0); PO2 FiO2 Ratio Arterial Blood 2.51 %; Reduced Hemoglobin 5.4 %THb (0-5.0); pH ABG 7.408 (7.350-7.450)
[2024-09-21 05:08] LABS: Device BIPAP; Expiratory Pressure 6 cmH2O; Inspiratory Pressure 14 cmH2O; Site Drawn RIGHT RADIAL
[2024-09-21] MEDS: PIPERACILLN/TAZ 3.375GM/NS50ML 3.375 GM/50 ML BAG IVPB (05:16)
[2024-09-21] MEDS: CENTRAL LINE FLUSH 10 ML IV PUSH ×3 (05:16→21:43)
[2024-09-21 05:30] LABS: Basophils Absolute Auto 0.1 K/mm3 (0.0-0.1); Basophils Percent Auto 0.9 % (0.2-1.2); Eosinophils Absolute Auto 0.4 K/mm3 (0-0.3); Eosinophils Percent Auto 6.4 % (0-4.4); Hematocrit 28.2 % (42.0-52.0); Hemoglobin 8.2 g/dL (14.0-18.0); Immature Granulocyte Percent A 1.8 % (0-0.5); Immature Platelet Fraction Pct 8.9 % (0.9-11.2); Lymphocytes Absolute Auto 1.25 K/mm3 (0.9-3.2); Lymphocytes Percent Auto 22.9 % (18.3-44.2); Mean Corpuscular HGB Conc 29.1 g/dl (32-36); Mean Corpuscular Hemoglobin 23.2 pg (26-34); Mean Corpuscular Volume 79.7 fl (80-100); Monocytes Absolute Auto 0.8 K/mm3 (0.1-0.6); Monocytes Percent Auto 14.7 % (2.6-8.5); Neutrophils Absolute Auto 2.9 K/mm3 (1.3-6.7); Neutrophils Percent Auto 53.3 % (45.5-73.1); Platelet Count Result 79 k/mm3 (150-375); Red Blood Count 3.54 M/mm3 (4.6-6.20); Red Cell Distribution Width 21.6 % (11.5-14.5); White Blood Count 5.5 K/mm3 (4.5-10.0)
[2024-09-21 05:47] LABS: Alanine Aminotransferase 28 U/L (6-50); Albumin Level 2.6 g/dL (3.5-5.1); Alkaline Phosphatase 128 U/L (38-126); Anion Gap 2 mmol/L (4-12); Aspartate Amino Transferase 75 U/L (17-59); Bilirubin,Total 0.9 mg/dL (0.2-1.3); Blood Urea Nitrogen 14 mg/dL (9-20); Calcium 8.1 mg/dL (8.4-10.2); Carbon Dioxide 33 mmol/L (22-30); Chloride 103 mmol/L (98-107); Estimated CRCL calculation 58 ml/min; Estimated Glomerular Filt Rate 57; Glucose 86 mg/dL (65-110); Phosphorus 3.6 mg/dL (2.5-4.5); Potassium 3.6 mmol/L (3.4-5.0); Sodium 138 mmol/L (137-145); Total Protein 5.8 g/dL (6.3-8.2)
[2024-09-21 06:21] LABS: Anisocytosis 2+; Hypochromasia 1+; Platelet Estimate Decreased (Adequate)
[2024-09-21 06:22] LABS: Schistocytes None Seen
[2024-09-21] MEDS: FLUTICASONE/UMECLIDIN/VILANTER 100-62.5-25 MCG ELLIPTA 1 PUFF INHALATION (07:30)
[2024-09-21] MEDS: PANTOPRAZOLE SODIUM IV 40 MG VIAL IV PUSH ×2 (09:18→21:43)
[2024-09-21] MEDS: polyethylene glycoL 3350 17 GM POWD.PACK PO (09:18)
[2024-09-21] MEDS: guaiFENesin 12 HR 600 MG TABCR PO ×2 (09:18→21:43)
[2024-09-21] MEDS: CHLOROTHIAZIDE 500 MG VIAL 250 MG IV PUSH ×2 (09:19→21:43)
--- NOTE | 2024-09-21 09:56 | PM.IMPN ---
Progress Note: A&P Assessment and Plan (1) Anemia: Code(s): D64.9 - Anemia, unspecified Status: Acute Assessment and Plan: Patient was recently diagnosed with anemia as an outpatient. He was getting iron infusions and was also being evaluated for lower GI bleed as he had a CT scan ordered. Patient initially was unable to get CT scan because he was unable to lay flat. 09/18: CT scan shows finding consists of colon cancer. I suspect patient may be having lower GI bleed -patient has received a total of 4 units of packed RBCs -09/19: s/p 1 unit platelets -DIC panel and not show any decreased fibrinogen level -continue to monitor hemoglobin level -Hold anticoagulation -IV PPI q.12 hours -appreciated GI evaluation and recommendations -hemoglobin stable this morning 8.2 09/20: Patient had hematuria early this morning by has resolved since (2) Sepsis: Code(s): A41.9 - Sepsis, unspecified organism Status: Acute Assessment and Plan: Sepsis secondary to UTI IV fluid bolus followed by IV fluid maintain IV Zosyn (09/18) 09/18: Blood cultures negative x2 show for 09/18: Urine culture no growth -not requiring any pressors (3) Acute and chronic respiratory failure: Code(s): J96.20 - Acute and chronic respiratory failure, unspecified whether with hypoxia or hypercapnia Status: Acute Assessment and Plan: Acute on chronic respiratory failure likely multifactorial secondary to encephalopathy, obesity hypoventilation syndrome, obstructive sleep apnea, atelectasis ? Chronic diaphragmatic weakness with elevated hemidiaphragm ABG shows hypercarbia and respiratory acidosis. Patient was placed on BiPAP in the ER, Repeat ABG was worse BiPAP settings were shows changed ABGs stable this morning morning Patient is more awake and alert this morning, on BiPAP overnight, alternating with Vapotherm during the day CT scan reviewed Continue Bronchodilators and Trelegy Ellipta 09/19: Advanced CHF with bilateral pleural effusions and moderate to advanced pulmonary edema pattern. Correlate clinically for pneumonia, stable) -continue diuresis (4) ALBERT (obstructive sleep apnea): Code(s): G47.33 - Obstructive sleep apnea (adult) (pediatric) Status: Acute Assessment and Plan: Currently on BiPAP, alternate with Vapotherm (5) Colon cancer: Code(s): C18.9 - Malignant neoplasm of colon, unspecified Status: Acute Assessment and Plan: CT scan Circumferential wall thickening of ascending colon with soft tissue infiltration into the adjacent pericolonic fat, highly suspicious for colonic adenocarcinoma. Consider colonoscopy for further assessment and tissue sampling. Cirrhotic liver. 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 Potential alternative consideration. Enlarged gastrohepatic lymph node, suspicious for metastatic lymph node -appreciate GI evaluation and recommendations, since patient cannot lay flat, colonoscopy will not be possible at this time -continue PPI -appreciate oncology evaluation and recommendation, patient leaning towards hospice at home (6) Atelectasis: Code(s): J98.11 - Atelectasis Status: Acute Assessment and Plan: Continue Vapotherm during the day and BiPAP at night (7) Obesity hypoventilation syndrome: Code(s): E66.2 - Morbid (severe) obesity with alveolar hypoventilation Status: Acute Assessment and Plan: Continue Vapotherm (8) Elevated serum creatinine: Code(s): R79.89 - Other specified abnormal findings of blood chemistry Status: Acute Assessment and Plan: Baseline creatinine unknown. Patient presented with creatinine 1.33. Patient is getting IV fluids sepsis. Monitor urine output electrolytes and creatinine. CT scan does not show any stones or obstruction He does have a large prostate and has a Still catheter now Monitor urine output electrolytes and creatinine -creatinine improving, 1.22 this morning (9) Elevated troponin: Code(s): R79.89 - Other specified abnormal findings of blood chemistry Status: Acute Assessment and Plan: Presented with elevated troponin. EKG reviewed. No history of chest pain. Likely stress mediated troponin leak secondary to respiratory failure, anemia and sepsis At this time he is not a candidate for any antiplatelet or anticoagulation due to anemia and thrombocytopenia and finding suggestive of colon cancer 09/18/2024: Echocardiogram Summary 1. Left ventricular chamber dimension is normal. 2. Left ventricular systolic function is normal, estimated at 60-65. 3. There is mildly increased left ventricular wall thickness. 4. The left ventricular diastolic function is grade I diastolic dysfunction. 5. Right ventricular systolic function is normal. 6. Right atrial chamber dimension is mildly enlarged. 7. No significant valvular disease. 8. RVSP 30 mmHg (10) Lower extremity edema: Code(s): R60.0 - Localized edema Status: Acute Assessment and Plan: Appears to be chronic bilateral lower extremity edema. Likely secondary to cor pulmonale. Plan DVT prophylaxis -SCD, no chemoprophylaxis secondary to thrombocytopenia and anemia Stress ulcer prophylaxis -PPI IV q.12 hours Nutrition -full liquid diet, obtain speech evaluation for swallow test, Code Status: DNR Family to decide regarding hospice today 09/19: Discussed at length with and daughter and updated them with patient's condition and plan of care. I also discussed with the the recommendations of the appeals reviewer veteran and little able to perform colonoscopy given his respiratory compromise. The will be talking among themselves and, with the plan off either doing aggressive care or take him home on hospice. They changed the code status to DNR Due to a high probability of clinically significant, life threatening deterioration, the patient required my highest level of preparedness to intervene emergently and I personally spent this critical care time directly and personally managing the patient. This critical care time included obtaining a history; examining the patient; pulse oximetry; ordering and review of studies; arranging urgent treatment with development of a management plan; evaluation of patient's response to treatment; frequent reassessment; and discussions with other providers. It was exclusive of separately billable procedures and treating other patients and teaching time. Please see Assessment and Plan section and the rest of the note for further information on patient assessment and treatment Subjective Date/time seen: 09/21/24 09:56 Interval history: Reason for consult: Anemia, sepsis, UTI, acute on chronic respiratory failure requiring BiPAP, malignant neoplasm of the colon, acute kidney injury 09/21/2024: Patient being seen for the hospitalist team Remains on high-flow therapy, denies any nausea, vomiting, abdominal pain, chest pain. Afebrile, hemodynamically stable. Very good urine output with negative fluid balance in the last 24 hours. Patient tolerating diet, working with physical therapist, sat on the chair yesterday almost all day long Review of Systems Review of Systems: All systems reviewed & are unremarkable except as noted in HPI and below (HPI) Exam Narrative: General: Morbidly obese male , hard of hearing, alert and awake HEENT: Pupils equal and reactive, sclera is clear Lungs/Chest: Decreased breath sounds at bases bilaterally, no significant wheezing heard, rales at bases Cardiac: Regular rate and rhythm, S1-S2 was normal Abdomen: Normal bowel sounds. Morbidly obese. Soft. NT. ND. Extremities: Bilateral pitting edema present, left leg shows chronic venous stasis changes with ulcer that has healed, palpable pedal pulses : Still in place Neurologic: Awake, alert, follows simple commands in all extremity and answers to questions appropriate Skin: A bruising noted in upper extremities Objective Data Vital Signs Vital Signs: Vital Signs - 24 hr 09/20/24 10:00 09/20/24 10:00 09/20/24 10:42 Temperature 97.2 F L Pulse Rate 64 68 Respiratory Rate 24 H Blood Pressure 109/57 L Pulse Oximetry 92 Oxygen Delivery High Flow Therapy with Na Oxygen Flow Rate 35 Fraction of Inspired Oxygen 09/20/24 12:00 09/20/24 12:00 09/20/24 12:00 Temperature 99.1 F Pulse Rate 65 65 61 Respiratory Rate 18 18 Blood Pressure 100/64 Pulse Oximetry 94 94 Oxygen Delivery High Flow Therapy with Na Oxygen Flow Rate 35 Fraction of Inspired Oxygen 50 09/20/24 13:58 09/20/24 14:00 09/20/24 14:27 Temperature Pulse Rate 57 L Respiratory Rate Blood Pressure Pulse Oximetry 96 Oxygen Delivery High Flow Therapy with Na High Flow Therapy with Na Oxygen Flow Rate 35 35 Fraction of Inspired Oxygen 50 09/20/24 16:00 09/20/24 16:00 09/20/24 16:30 Temperature 99.4 F Pulse Rate 62 62 Respiratory Rate 21 H Blood Pressure 94/59 L Pulse Oximetry 90 99 Oxygen Delivery High Flow Therapy with Na Oxygen Flow Rate 30 Fraction of Inspired Oxygen 50 09/20/24 16:30 09/20/24 16:31 09/20/24 18:00 Temperature Pulse Rate 57 L Respiratory Rate Blood Pressure Pulse Oximetry 98 99 Oxygen Delivery High Flow Therapy with Na High Flow Therapy with Na Oxygen Flow Rate 35 30 Fraction of Inspired Oxygen 50 50 09/20/24 18:26 09/20/24 20:00 09/20/24 20:17 Temperature Pulse Rate 70 67 Respiratory Rate 25 H Blood Pressure Pulse Oximetry 97 97 Oxygen Delivery High Flow Therapy with Na High Flow Therapy with Na Oxygen Flow Rate 30 30 Fraction of Inspired Oxygen 45 45 09/20/24 20:21 09/20/24 20:56 09/20/24 22:00 Temperature 99.9 F H Pulse Rate 66 91 Respiratory Rate 118 H Blood Pressure 93/63 L Pulse Oximetry 97 97 Oxygen Delivery High Flow Therapy with Na Oxygen Flow Rate 30 Fraction of Inspired Oxygen 45 09/20/24 22:50 09/20/24 23:40 09/21/24 00:00 Temperature 99.3 F Pulse Rate 64 60 69 Respiratory Rate 24 H 19 21 H Blood Pressure 104/57 L Pulse Oximetry 97 94 96 Oxygen Delivery BiPAP BiPAP Oxygen Flow Rate Fraction of Inspired Oxygen 45 09/21/24 00:00 09/21/24 02:00 09/21/24 02:00 Temperature Pulse Rate 66 61 61 Respiratory Rate 22 H Blood Pressure Pulse Oximetry 95 Oxygen Delivery BiPAP Oxygen Flow Rate Fraction of Inspired Oxygen 09/21/24 04:00 09/21/24 04:00 09/21/24 04:06 Temperature 97.7 F Pulse Rate 60 59 L 60 Respiratory Rate 17 17 Blood Pressure 97/52 L Pulse Oximetry 95 95 Oxygen Delivery BiPAP Oxygen Flow Rate Fraction of Inspired Oxygen 45 09/21/24 04:48 09/21/24 06:00 09/21/24 07:29 Temperature Pulse Rate 57 L 56 L Respiratory Rate 23 H Blood Pressure 105/61 Pulse Oximetry 96 Oxygen Delivery BiPAP Oxygen Flow Rate Fraction of Inspired Oxygen 09/21/24 07:30 09/21/24 08:00 Temperature Pulse Rate 55 L 61 Respiratory Rate 20 19 Blood Pressure Pulse Oximetry 94 98 Oxygen Delivery High Flow Therapy with Na High Flow Therapy with Na Oxygen Flow Rate 30 30 Fraction of Inspired Oxygen 45 45 Intake/Output Intake/Output: Intake & Output 09/18/24 09/19/24 09/20/24 09/21/24 23:59 23:59 23:59 23:59 Intake Total 4206.6 2808 2638 350 Output Total 1430 4825 5350 900 Balance 2776.6 -2017 -2712 -550 Meds/Results Medications: Active Medications Generic Name Dose Route Start Last Admin Trade Name Freq PRN Reason Stop Dose Admin Acetaminophen 650 mg 09/18/24 07:16 Acetaminophen 650 Mg Suppository RECTAL Q6H PRN Mild Pain (1-3) or Fever Acetaminophen 1,000 mg 09/19/24 12:46 09/20/24 22:18 Acetaminophen 500 Mg Tablet PO 1,000 mg Q8HR PRN Administration Mild Pain (1-3) or Fever Albuterol/Ipratropium 3 ml 09/18/24 08:49 Ipratropium 0.5 Mg/Albuterol Sulfate 2.5 Mg Ampul.Neb 3 Ml INHALATION Q6HRT PRN Wheezing Chlorothiazide Sodium 250 mg 09/21/24 08:00 09/21/24 09:19 Chlorothiazide 500 Mg Vial IV PUSH 09/21/24 20:01 250 mg Q12H RICARDO Administration Fluticasone/Umeclidinium/Vilanterol 1 puff 09/18/24 10:00 09/21/24 07:30 Fluticasone/Umeclidin/Vilanter 100-62.5-25 Mcg Ellipta INHALATION 1 puff DAILYRT RICARDO Administration Guaifenesin 600 mg 09/19/24 21:00 09/21/24 09:18 Guaifenesin 12 Hr 600 Mg Tabcr PO 600 mg Q12HR RICARDO Administration Piperacillin/Tazobactam/Dextrose 3.375 gm in 50 mls @ 100 mls/hr 09/20/24 12:00 09/21/24 05:53 Zosyn 3.375 Gm/Ns 50 Ml IVPB Infused Q6HR RICARDO Infusion Ondansetron HCl 4 mg 09/18/24 07:16 Ondansetron Inj 4 Mg/2 Ml Vial IV PUSH Q4H PRN Nausea Pantoprazole Sodium 40 mg 09/18/24 09:00 09/21/24 09:18 Pantoprazole Sodium Iv 40 Mg Vial IV PUSH 40 mg Q12HR RICARDO Administration Polyethylene Glycol 17 gm 09/21/24 09:00 09/21/24 09:18 Polyethylene Glycol 3350 17 Gm Powd.Pack PO 17 gm QAM RICARDO Administration Senna/Docusate Sodium 1 tab 09/20/24 21:00 09/20/24 20:22 Senna/Docusate Sodium Tablet PO 1 tab HS RICARDO Administration Sodium Chloride 10 ml 09/18/24 14:00 09/21/24 05:16 Central Line Flush IV PUSH 10 ml Q8HR RICARDO Administration Sodium Chloride 10 ml 09/18/24 10:52 Central Line Flush IV PUSH PRN PRN with TPN bag changes Sodium Chloride 20 ml 09/18/24 10:52 Central Line Flush IV PUSH PRN PRN after blood draws Radiology Results: ITS Impressions Chest/Abdomen/Pelvis CTA 09/18/24 06:38 Impression: Very limited evaluation for pulmonary embolus due to timing of the contrast bolus. No definite large central pulmonary embolus. Circumferential wall thickening of ascending colon with soft tissue infiltration into the adjacent pericolonic fat, highly suspicious for colonic adenocarcinoma. Consider colonoscopy for further assessment and tissue sampling. Cirrhotic liver. 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 Potential alternative consideration. Enlarged gastrohepatic lymph node, suspicious for metastatic lymph node. Bibasilar pulmonary atelectasis. Head CT 09/18/24 07:12 Impression: No significant abnormality seen. GI Bleed Scan Nuclear Medicine 09/18/24 14:47 IMPRESSION: 1. No scintigraphic evidence for active gastrointestinal bleeding. Chest X-Ray 09/21/24 05:34 Impression: Advanced CHF with bilateral pleural effusions and moderate to advanced pulmonary edema pattern. Correlate clinically for pneumonia. Stable right-sided PICC line. Labs Labs: Laboratory Results - last 24 hr 09/18/24 09/20/24 09/21/24 10:38 04:41 04:48 WBC RBC Hgb Hct MCV MCH MCHC RDW Plt Count MPV Immature Gran % (Auto) Neut % (Auto) Lymph % (Auto) [place] % (Auto) Eos % (Auto) Baso % (Auto) Lymph # (Auto) [place] # (Auto) Eos # (Auto) Baso # (Auto) Abs Immat Gran (auto) Absolute Neuts (auto) Absolute Nucleated RBC Band Neutrophils % Nucleated RBC % Platelet Estimate % Immature Plt Fraction Hypochromasia Anisocytosis Schistocytes Puncture Site Right radial ABG pH 7.408 ABG pCO2 49.1 H ABG pO2 75.2 L ABG PO2/FiO2 Ratio 2.51 ABG HCO3 30.3 H ABG O2 Saturation 95.0 ABG O2 Content 11.9 L ABG Base Excess 4.9 A-a Gradient 81.0 Oxyhemoglobin 93.2 Carboxyhemoglobin 1.1 Methemoglobin 0.3 Reduced Hemoglobin 5.4 H Total Hemoglobin 9.0 L O2 Delivery Device Bipap O2 Liters/Min Not Reportable FiO2 30 Expiratory Pressure 6 6 Inspiratory Pressure 14 14 Sodium Potassium Chloride Carbon Dioxide Anion Gap BUN Creatinine Estim Creat Clear Calc Estimated GFR Glucose Calcium Phosphorus Magnesium Total Bilirubin AST ALT Alkaline Phosphatase Total Protein Albumin Alpha Fetoprotein 2.2 09/21/24 05:15 WBC 5.5 RBC 3.54 L Hgb 8.2 L Hct 28.2 L MCV 79.7 L MCH 23.2 L MCHC 29.1 L RDW 21.6 H Plt Count 79 L MPV TNP Immature Gran % (Auto) 1.8 H Neut % (Auto) 53.3 Lymph % (Auto) 22.9 [place] % (Auto) 14.7 H Eos % (Auto) 6.4 H Baso % (Auto) 0.9 Lymph # (Auto) 1.25 [place] # (Auto) 0.8 H Eos # (Auto) 0.4 H Baso # (Auto) 0.1 Abs Immat Gran (auto) 0.10 H Absolute Neuts (auto) 2.9 Absolute Nucleated RBC 0.000 Band Neutrophils % Not Reportable Nucleated RBC % 0.0 Platelet Estimate Decreased % Immature Plt Fraction 8.9 Hypochromasia 1+ Anisocytosis 2+ Schistocytes None seen Puncture Site ABG pH ABG pCO2 ABG pO2 ABG PO2/FiO2 Ratio ABG HCO3 ABG O2 Saturation ABG O2 Content ABG Base Excess A-a Gradient Oxyhemoglobin Carboxyhemoglobin Methemoglobin Reduced Hemoglobin Total Hemoglobin O2 Delivery Device O2 Liters/Min FiO2 Expiratory Pressure Inspiratory Pressure Sodium 138 Potassium 3.6 Chloride 103 Carbon Dioxide 33 H Anion Gap 2 L BUN 14 Creatinine 1.22 Estim Creat Clear Calc 58 Estimated GFR 57 L Glucose 86 Calcium 8.1 L Phosphorus 3.6 Magnesium 2.0 Total Bilirubin 0.9 AST 75 H ALT 28 Alkaline Phosphatase 128 H Total Protein 5.8 L Albumin 2.6 L Alpha Fetoprotein Quality VTE Prophylaxis VTE prophylaxis: mechanical ordered
[2024-09-21] MEDS: SENNA/DOCUSATE SODIUM TABLET 1 TAB PO (21:43)
--- NOTE | 2024-09-21 22:07 | PC.NURSE ---
Received patient into [facility] from [facility]. and personal belongings at bedside.
--- NOTE | 2024-09-21 22:30 | PC.NURSE ---
[facility]
[2024-09-22] VITALS (8 sets, daily range): BP systolic 124–131; BP diastolic 60–66; PULSE 61–87; RESP 23–26; TEMP 36.4–36.7; O2SAT 92–97
[2024-09-22] MEDS: methocarbamoL 500 MG TABLET PO ×2 (04:17→08:44)
[2024-09-22 04:28] LABS: Alveolar/Arterial O2 Gradient 93.3 mmHg; Base Excess ABG 4.8 mEq/l (+/-2.0); Carboxyhemoglobin 0.7 % THb (0-2.0); Fractional Inspired Oxygen 30 %; HCO3 ABG 29.1 mEq/l (22.0-26.0); Methemoglobin ABG 0.1 %THb (0-1.5); Oxygen Content ABG 12.6 %vol (16.0-22.0); Oxyhemoglobin 93.1 % THb (90.0-100.0); PCO2 ABG 42.1 mmHg (35.0-45.0); PO2 ABG 71.1 mmHg (80.0-100.0); PO2 FiO2 Ratio Arterial Blood 2.37 %; Reduced Hemoglobin 6.1 %THb (0-5.0); Total Hemoglobin 9.6 g/dL (12.0-18.0); pH ABG 7.457 (7.350-7.450)
[2024-09-22 04:29] LABS: Device NON-INVASIVE VENT; Modified Allen's Test Pass; Non-Invasive Inspiratory Pressure 14 CMH2O; Non-Invasive Vent Rate 18 /MIN; Site Drawn RIGHT RADIAL
[2024-09-22 04:30] LABS: Non-Invasive Expiratory Pressure 8 CMH2O
[2024-09-22 07:28] LABS: Hematocrit 27.9 % (42.0-52.0); Hemoglobin 8.1 g/dL (14.0-18.0); Immature Platelet Fraction Pct 9.8 % (0.9-11.2); Mean Corpuscular Hemoglobin 23.1 pg (26-34); Mean Corpuscular Volume 79.7 fl (80-100); Platelet Count Result 65 k/mm3 (150-375); Red Cell Distribution Width 22.3 % (11.5-14.5)
[2024-09-22 07:53] LABS: Alanine Aminotransferase 28 U/L (6-50); Albumin Level 2.6 g/dL (3.5-5.1); Alkaline Phosphatase 144 U/L (38-126); Anion Gap 2 mmol/L (4-12); Aspartate Amino Transferase 68 U/L (17-59); Bilirubin,Total 0.8 mg/dL (0.2-1.3); Blood Urea Nitrogen 13 mg/dL (9-20); Calcium 8.2 mg/dL (8.4-10.2); Carbon Dioxide 33 mmol/L (22-30); Chloride 101 mmol/L (98-107); Estimated CRCL calculation 73 ml/min; Estimated Glomerular Filt Rate > 60; Glucose 91 mg/dL (65-110); Magnesium 1.9 mg/dL (1.6-2.3); Potassium 3.4 mmol/L (3.4-5.0); Sodium 136 mmol/L (137-145); Total Protein 5.8 g/dL (6.3-8.2)
[2024-09-22] MEDS: guaiFENesin 12 HR 600 MG TABCR PO (08:44)
[2024-09-22] MEDS: polyethylene glycoL 3350 17 GM POWD.PACK PO (08:44)
[2024-09-22] MEDS: PANTOPRAZOLE SODIUM IV 40 MG VIAL IV PUSH (08:44)
[2024-09-22] MEDS: FLUTICASONE/UMECLIDIN/VILANTER 100-62.5-25 MCG ELLIPTA 1 PUFF INHALATION (08:51)
--- NOTE | 2024-09-22 10:12 | P.DS_ITS ---
DS: Admitting Diagnosis Discharge Date 09/22/2024 Admitting Diagnosis Shortness of breath DS: Discharge Diagnosis Discharge Diagnosis (1) Anemia: Code(s): D64.9 - Anemia, unspecified Status: Acute (2) Sepsis: Code(s): A41.9 - Sepsis, unspecified organism Status: Acute (3) Acute and chronic respiratory failure: Code(s): J96.20 - Acute and chronic respiratory failure, unspecified whether with hypoxia or hypercapnia Status: Acute (4) ALBERT (obstructive sleep apnea): Code(s): G47.33 - Obstructive sleep apnea (adult) (pediatric) Status: Acute (5) Colon cancer: Code(s): C18.9 - Malignant neoplasm of colon, unspecified Status: Acute (6) Atelectasis: Code(s): J98.11 - Atelectasis Status: Acute (7) Obesity hypoventilation syndrome: Code(s): E66.2 - Morbid (severe) obesity with alveolar hypoventilation Status: Acute (8) Elevated serum creatinine: Code(s): R79.89 - Other specified abnormal findings of blood chemistry Status: Acute (9) Elevated troponin: Code(s): R79.89 - Other specified abnormal findings of blood chemistry Status: Acute (10) Lower extremity edema: Code(s): R60.0 - Localized edema Status: Acute DS: Summary Hospital Course Hospital Course: # Anemia: Patient was recently diagnosed with anemia as an outpatient. He was getting iron infusions and was also being evaluated for lower GI bleed as he had a CT scan ordered. Patient initially was unable to get CT scan because he was unable to lay flat. 09/18: CT scan shows finding consists of colon cancer. I suspect patient may be having lower GI bleed -patient has received a total of 4 units of packed RBCs -09/19: s/p 1 unit platelets -DIC panel done and did not show any decreased fibrinogen level -continue to monitor hemoglobin level which remains stable -anticoagulation on hold -IV PPI q.12 hours -appreciated GI evaluation and recommendations -hemoglobin stable # Sepsis: Sepsis secondary to UTI IV fluid bolus followed by IV fluid maintain IV Zosyn (09/18) 09/18: Blood cultures negative x2 show for 09/18: Urine culture no growth -not requiring any pressors # Acute and chronic respiratory failure: Acute on chronic respiratory failure likely multifactorial secondary to encephalopathy, obesity hypoventilation syndrome, obstructive sleep apnea, atelectasis ? Chronic diaphragmatic weakness with elevated hemidiaphragm ABG shows hypercarbia and respiratory acidosis. Patient was placed on BiPAP in the ER, Repeat ABG was worse BiPAP settings were shows changed ABGs stable on BiPAP overnight alternating with Vapotherm during daytime Continue Bronchodilators and Trelegy Ellipta CT chest Advanced CHF with bilateral pleural effusions and moderate to advanced pulmonary edema pattern. Correlate clinically for pneumonia, stable) -continue diuresis # ALBERT (obstructive sleep apnea): Currently on BiPAP, alternate with Vapotherm # Colon cancer: CT scan Circumferential wall thickening of ascending colon with soft tissue infiltration into the adjacent pericolonic fat, highly suspicious for colonic adenocarcinoma. Consider colonoscopy for further assessment and tissue sampling. Cirrhotic liver. 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 Potential alternative consideration. Enlarged gastrohepatic lymph node, suspicious for metastatic lymph node -appreciate GI evaluation and recommendations, since patient cannot lay flat, colonoscopy will not be possible at this time -continue PPI -appreciate oncology evaluation and recommendation, patient eventually chose hospice. Likely metastatic colon. CEA elevated at 240. Patient has liver cirrhosis with profound anemia and thrombocytopenia. Not a candidate for chemotherapy. # Atelectasis: Continue Vapotherm during the day and BiPAP at night # Obesity hypoventilation syndrome: Continue Vapotherm # Elevated serum creatinine: Baseline creatinine unknown. Patient presented with creatinine 1.33. Patient is getting IV fluids sepsis. Monitor urine output electrolytes and creatinine. CT scan does not show any stones or obstruction He does have a large prostate and has a Still catheter now Monitor urine output electrolytes and creatinine -creatinine improving, 1.22 # Elevated troponin: Presented with elevated troponin. EKG reviewed. No history of chest pain. Likely stress mediated troponin leak secondary to respiratory failure, anemia and sepsis At this time he is not a candidate for any antiplatelet or anticoagulation due to anemia and thrombocytopenia and finding suggestive of colon cancer 09/18/2024: Echocardiogram Summary 1. Left ventricular chamber dimension is normal. 2. Left ventricular systolic function is normal, estimated at 60-65. 3. There is mildly increased left ventricular wall thickness. 4. The left ventricular diastolic function is grade I diastolic dysfunction. 5. Right ventricular systolic function is normal. 6. Right atrial chamber dimension is mildly enlarged. 7. No significant valvular disease. 8. RVSP 30 mmHg # Lower extremity edema: Appears to be chronic bilateral lower extremity edema. Likely secondary to cor pulmonale. # DVT prophylaxis -SCD, no chemoprophylaxis secondary to thrombocytopenia and anemia # Stress ulcer prophylaxis -PPI IV q.12 hours # Nutrition -full liquid diet, obtain speech evaluation for swallow test, # Code Status: DNR Time Spent with Patient Time attestation: Total time spent providing and/or coordinating discharge services: 40 minutes Exam Narrative: General: Morbidly obese male , hard of hearing, alert and awake HEENT: Pupils equal and reactive, sclera is clear Lungs/Chest: Decreased breath sounds at bases bilaterally, no significant wheezing heard, rales at bases Cardiac: Regular rate and rhythm, S1-S2 was normal Abdomen: Normal bowel sounds. Morbidly obese. Soft. NT. ND. Extremities: Bilateral pitting edema present, left leg shows chronic venous stasis changes with ulcer that has healed, palpable pedal pulses : Still in place Neurologic: Awake, alert, follows simple commands in all extremity and answers to questions appropriate Skin: A bruising noted in upper extremities DS: Data Data Completed and Pending Completed studies during hospitalization: Exam Type: CA echo dop color flow w con Complete two-dimensional, color flow and Doppler transthoracic echocardiogram is performed with contrast to opacify the left ventricle and to improve the deliniation of the left ventricle endocardial borders. Staff Referring Physician: Jamar Llanos MD Asbestos Microscopist: Leeann Whalen Attending Provider: Beba Orona Contrast/Agitated Saline Contrast/Ag. Saline: Definity Amount: 2.00 ml Administered By: Leeann Whalen Existing IV Access: Yes IV Access Condition: patent with no signs of infiltration Summary 1. Left ventricular chamber dimension is normal. 2. Left ventricular systolic function is normal, estimated at 60-65. 3. There is mildly increased left ventricular wall thickness. 4. The left ventricular diastolic function is grade I diastolic dysfunction. 5. Right ventricular systolic function is normal. 6. Right atrial chamber dimension is mildly enlarged. 7. No significant valvular disease. Left Ventricle Left ventricular chamber dimension is normal. Left ventricular systolic function is normal, estimated at 60-65. There is mildly increased left ventricular wall thickness. The left ventricular diastolic function is grade I diastolic dysfunction. Right Ventricle Right ventricular chamber dimension is normal. Right ventricular systolic function is normal. Left Atria Left atrial chamber dimension is normal. Right Atria Right atrial chamber dimension is mildly enlarged. Atrial Septum Intact interatrial septum visualized by color flow imaging. Aortic Valve The aortic valve is probable trileaflet. There is no aortic valve stenosis. There is no aortic valve regurgitation. Pulmonic Valve The pulmonic valve is not well visualized. There is no pulmonic regurgitation. Mitral Valve There is trace mitral valve regurgitation. Tricuspid Valve There is trace tricuspid valve regurgitation. Pericardium/Pleural The pericardium appears epicardial fat pad. There is no pericardial effusion. Aorta The aortic root size at the sinus of Valsalva is normal. Labs on day of discharge: Labs from last 24 hours 09/22/24 09/22/24 06:48 04:16 WBC 5.0 RBC 3.50 L Hgb 8.1 L Hct 27.9 L MCV 79.7 L MCH 23.1 L MCHC 29.0 L RDW 22.3 H Plt Count 65 L MPV TNP % Immature Plt Fraction 9.8 Puncture Site Right radial ABG pH 7.457 H ABG pCO2 42.1 ABG pO2 71.1 L ABG PO2/FiO2 Ratio 2.37 ABG HCO3 29.1 H ABG O2 Saturation 95.0 ABG O2 Content 12.6 L ABG Base Excess 4.8 A-a Gradient 93.3 Oxyhemoglobin 93.1 Carboxyhemoglobin 0.7 Methemoglobin 0.1 Reduced Hemoglobin 6.1 H Total Hemoglobin 9.6 L O2 Delivery Device Non-invasive vent O2 Liters/Min Not Reportable Vent Rate 18 FiO2 30 Expiratory Pressure 8 Inspiratory Pressure 14 Sodium 136 L Potassium 3.4 Chloride 101 Carbon Dioxide 33 H Anion Gap 2 L BUN 13 Creatinine 0.96 Estim Creat Clear Calc 73 Estimated GFR > 60 Glucose 91 Calcium 8.2 L Phosphorus 3.0 Magnesium 1.9 Total Bilirubin 0.8 AST 68 H ALT 28 Alkaline Phosphatase 144 H Total Protein 5.8 L Albumin 2.6 L Preliminary micro results at discharge 09/18/24 03:42 Blood Culture - Preliminary Blood 09/18/24 03:53 Blood Culture - Preliminary Blood Imaging Radiologist's impression: ITS Impressions Chest X-Ray 09/18/24 05:38 Impression: Moderate right pleural effusion with right basilar atelectasis/edema versus possibly pneumonia. Numerous nodular opacities overlying the left upper lobe/left lung, which may be external to the lung itself. Consider chest CT to further evaluate. Stable elevation left hemidiaphragm. Chest/Abdomen/Pelvis CTA 09/18/24 06:38 Impression: Very limited evaluation for pulmonary embolus due to timing of the contrast bolus. No definite large central pulmonary embolus. Circumferential wall thickening of ascending colon with soft tissue infiltration into the adjacent pericolonic fat, highly suspicious for colonic adenocarcinoma. Consider colonoscopy for further assessment and tissue sampling. Cirrhotic liver. 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 Potential alternative consideration. Enlarged gastrohepatic lymph node, suspicious for metastatic lymph node. Bibasilar pulmonary atelectasis. Head CT 09/18/24 07:12 Impression: No significant abnormality seen. GI Bleed Scan Nuclear Medicine 09/18/24 14:47 IMPRESSION: 1. No scintigraphic evidence for active gastrointestinal bleeding. Chest X-Ray 09/19/24 08:01 Impression: Possible small to moderate layering right pleural effusion with right basilar atelectasis versus pneumonia. Hazy left basilar and left perihilar airspace disease could reflect pulmonary edema/atelectasis versus pneumonia. Stable elevation left hemidiaphragm. Chest X-Ray 09/20/24 05:37 Impression: Sensitive bilateral pulmonary airspace disease with bilateral pleural effusions. Findings suggest advanced CHF. Correlate clinically for pneumonia. Right-sided PICC line. Chest X-Ray 09/21/24 05:34 Impression: Advanced CHF with bilateral pleural effusions and moderate to advanced pulmonary edema pattern. Correlate clinically for pneumonia. Stable right-sided PICC line. Discharge Plan Discharge Attending physician on discharge: Mian Rodriguez Consulting providers: Ar Mcgraw; Parveen Diamond; Jordyn Jeronimo; Christopher Lawrence Discharging Clinician: Mian Rodriguez Anticipated Discharge Date/Time: 09/22/24 10:22 Patient Disposition: Hospice - Home Activity: as tolerated Diet: as tolerated and heart healthy Discharge Instructions: Per Care Coordination, patient to discharge with [facility] ([phone]). Please fax discharge instructions and medication sheets to [phone]. Patient Language: Malaysian Stand Alone Forms: General Discharge Information Follow-up/Referrals: Agustin,Simon Villa M.D. [Primary Care Provider] - 1 Week Discharge Medications: New guaifenesin [Mucus Relief ER] 600 mg Tablet Extended Release 12hr 600 mg PO Q12HR Qty: 30 0RF sennosides-docusate sodium [Senokot-S] 8.6-50 mg Tablet 1 tab-cap PO HS Qty: 30 0RF polyethylene glycol 3350 [Miralax] 17 gram Powder In Packet 17 g PO QAM Qty: 30 0RF Continued magnesium oxide 400 mg magnesium tablet 400 mg PO DAILY melatonin 10 mg tablet 10 mg PO HS trazodone 100 mg tablet 150 mg PO HS rivastigmine 9.5 mg/24 hr patch 24 hour 9.5 mg TRANSDERM DAILY furosemide 20 mg tablet 20 mg PO Q12H Rx Instructions: take 3 tablets by mouth in the morning, take 2 tablets by mouth in the evening potassium chloride 10 mEq capsule, extended release 10 meq PO DAILY metformin 500 mg tablet 500 mg PO DAILY Trelegy Ellipta 100-62.5-25 mcg blister with device 1 inhalation INHALATION DAILY Date of admission: 09/18/24 09:34 Primary Care Provider: AvelSimon Admitting Provider: Erika Zepeda Attending physician on admission: Beba Orona Condition: Stable
== END 2024-09-22 11:18 | disposition hospice, home (50) | DRG 871 ==
LOC: ANHED 07:23 → ANHICU 08:15 → ANHIMU 09-21 22:07
PROVIDERS: Internal Medicine; Nurse Practitioner Family; Admitting Provider Internal Medicine; Emergency Provider Emergency Medicine; PCP Internal Medicine; Visit Provider Internal Medicine
DX: A41.9 Sepsis, unspecified organism (principal); I21.A1 Myocardial infarction type 2; J96.21 Acute and chronic respiratory failure with hypoxia; J96.22 Acute and chronic respiratory failure with hypercapnia; G93.40 Encephalopathy, unspecified; C18.9 Malignant neoplasm of colon, unspecified; E66.2 Morbid (severe) obesity with alveolar hypoventilation; K76.6 Portal hypertension; C78.7 Secondary malignant neoplasm of liver and intrahepatic bile duct; I50.9 Heart failure, unspecified; K74.60 Unspecified cirrhosis of liver; E87.6 Hypokalemia; I86.4 Gastric varices; D69.6 Thrombocytopenia, unspecified; D50.0 Iron deficiency anemia secondary to blood loss (chronic); J44.9 Chronic obstructive pulmonary disease, unspecified; R79.89 Other specified abnormal findings of blood chemistry; T68.XXXA Hypothermia, initial encounter; F03.90 Unspecified dementia, unspecified severity, without behavioral disturbance, psychotic disturbance, mood disturbance, and anxiety; Z20.822 Contact with and (suspected) exposure to COVID-19; Z99.81 Dependence on supplemental oxygen; Z51.5 Encounter for palliative care
CPT/HCPCS: 36415; 36430; 36569; 36600; 70450; 71045; 71275; 74177; 78278; 80053; 81001; 82105; 82375; 82378; 82550; 82728; 82805; 83050; 83540; 83550; 83605; 83690; 83735; 83880; 84100; 84145; 84484; 85014; 85018; 85025; 85027; 85055; 85380; 85384; 85610; 85730; 86304; 86850; 86900; 86901; 86923; 87040; 87086; 87637; 87641; 92610; 93005; 94640; 96361; 96365; 96366; 96367; 96368; 96375; 97110; 97163; 97166; 97530; 99285; A9270; A9560; C1751; C8929; G0378; J1205; J1938; J2003; J2270; J2470; J2543; J3370; J3475; J3480; J7030; J7050; J7120; P9016; P9034; Q9957; Q9967